=== PATIENT | female | born 1940 | race Caucasian/White ===

== ENCOUNTER 2024-05-01 14:11 | Inpatient (IN) | payer OTHER, SELFPAY ==
[2024-04-30] VITALS (11 sets, daily range): BP systolic 98–254; BP diastolic 52–209; BMI 21.7
[2024-04-30 13:44] LABS: % Basophils 1.4 % (0-2); % Eosinophils 1.3 % (0-6); % Immature Granulocytes 0.3 % (0-0.5); % Lymphocytes 25.8 % (20.5-51.1); % Monocytes 9.2 % (1.7-9.3); Absolute Basophils 0.1 10^3/uL (0-0.2); Absolute Eosinophils 0.1 10^3/uL (0-0.7); Absolute Monocytes 0.7 10^3/uL (0.1-0.6); Absolute Neutrophils 4.8 10^3/uL (1.4-6.5); Hematocrit 37.8 % (37.0-47.0); Hemoglobin 12.8 g/dL (12.0-16.0); Mean Corp Hgb Conc. 33.9 g/dL (33.0-37.0); Mean Corpuscular Hgb 31.5 pg (27.0-31.0); Mean Corpuscular Volume 93.1 fL (81.0-99.0); Nucleated Red Blood Cells % 0 %; Platelet Count 329 10^3/uL (130-400); Red Blood Cell Count 4.06 10^6/uL (4.20-5.40); Red Cell Dist. Width 13.9 % (11.5-14.5); White Blood Cell Count 7.8 10^3/uL (4.8-10.8)
[2024-04-30 13:56] LABS: ALT (SGPT) 23 U/L (0-35); AST (SGOT) 27 U/L (14-36); Albumin 4.8 g/dl (3.5-5.0); Alkaline Phosphatase 79 U/L (38-126); Blood Urea Nitrogen 26 mg/dl (7-17); Calcium 9.9 mg/dl (8.4-10.2); Carbon Dioxide 22 mmol/L (22-30); Chloride 105 mmol/L (98-107); Glucose 88 mg/dl (70-99); Potassium 4.1 mmol/L (3.5-5.1); Sodium 140 mmol/L (135-145); Total Bilirubin 0.7 mg/dl (0.2-1.3); Total Protein 7.5 g/dl (6.3-8.2); eGFR 55.55
[2024-04-30] MEDS: TRANDATE 10 MG IV (17:41)
[2024-04-30] MEDS: COZAAR 50 MG PO (17:42)
--- NOTE | 2024-04-30 17:48 | ED.GENMED ---
History of Present Illness
General
Chief Complaint: Change in Mental Status
Source: patient and family
Exam Limitations: altered mental status
Time Seen by Provider: 04/30/24 17:12
Nursing documentation reviewed up to this point in time: agreed with
History of Present Illness
History of Present Illness:
83-year-old female originally from [facility] lives in the with her son for 10 to 14 days she has had fatigue confusion and word finding difficulties around 7 days ago she stopped all her meds including her 2 antihypertensives, no headache, no nausea
or vomiting, severely hypertensive. No chest pains, she apparently fell at some point today,
Past History
Past History
ED Past Medical History: HTN
Social History
Tobacco: Non-smoker
Alcohol: Occasional
Drug: None
Personal:
Living: with family
Employment: Retired
Review of Systems
Review of Systems
All Other Systems: Not applicable
Constitutional: Reports fatigue; Denies fever
EENT: Reports no symptoms
Respiratory: Reports no symptoms
Cardiac: Reports no symptoms
ABD/GI: Reports no symptoms
Neurological: Reports other (Word finding difficulty speaking at Qatari occasionally)
Psychiatric: Reports no symptoms
Phy Exam
Physical Exam
Physical Exam:
Physical Exam
General: no apparent distress, not acutely ill
Neck: No jaundice no tongue bite
Heart: s1/s2 regular rate and rhythm, no murmur. equal radial pulses.
Lungs: no acute respiratory distress. clear bilaterally
Abdomen: Not tender
Neuro: alert and oriented speech slow a bit slurred
Skin: no rash
Psychiatric: Cooperative frustrated
Extremities: no edema.
Course
Orders/Labs/Results
Orders:
Orders
04/30/24 13:[address] [CT Head W/o Iv Contrast] Urgent
Comment:
Reason For Exam: dizziness and confusion
04/30/24 13:35
Complete Blood Count/With Diff Urgent
Comprehensive Metabolic Panel Urgent
04/30/24 17:23
Labetalol HCl [Trandate] 10 mg IV NOW STA
04/30/24 17:25
Losartan [Cozaar] 50 mg PO NOW STA
Abnormal Lab Results
04/30/24
13:35
RBC 4.06 L 10^6/uL
(4.20-5.40)
MCH 31.5 H pg
(27.0-31.0)
Absolute Monos (auto) 0.7 H 10^3/uL
(0.1-0.6)
BUN 26 H mg/dl
(7-17)
04/30/24 13:35
04/30/24 13:35
Vital Signs
Initial and Last Documented VS:
Initial Vital Signs
Temp Pulse Resp BP Pulse Ox
98.5 F 88 18 98/73 98
04/30/24 13:26 04/30/24 13:26 04/30/24 13:26 04/30/24 13:26 04/30/24 13:26
Last Documented Vital Signs
Temp Pulse Resp BP Pulse Ox
98.5 F 92 18 253/92 97
04/30/24 13:26 04/30/24 17:38 04/30/24 17:38 04/30/24 17:38 04/30/24 17:00
MDM/Problems Addressed
Differential Diagnosis Includes:
Malignancy hypertensive encephalopathy hypertensive urgency, electrolyte abnormality, neurologic condition
MDM/Problems Addressed:
Confusion, high blood pressure
Chronic conditions affecting care:
High blood pressure
Chronic conditions affecting care: HTN
Acute Exacerbation and/or Progression of Chronic Illness: HTN
*Radiology
Radiology exam reviewed: radiology read reviewed
*Pulse Oximetry
Patient hypoxic: no
*EKG
Interpreted by ED Provider?: Yes
Interpretation: abnormal
Comparison EKG: no comparison EKG present
Heart Rate: 78
Rate: normal
Rhythm: sinus
Ischemia: non-specific ST changes
*Loan Associate Interpretation
Rate: normal
Interpretation: normal
Heart Rate: 78
Rhythm: sinus
*Critical Care Note
Total Time (30-74mins, 75-104mins- exclusive of procedures): 31
Update Note
Update Note:
Update, high risk situation patient with severely elevated systolic blood pressure noncompliant with meds with mental status change subacute onset
Will start on labetalol, restarted losartan p.o. will require admission
ED Attending Note
-
Portions of this chart may have been created with voice recognition software.� Occasional wrong word or��sound alike� substitutions may have occurred due to the inherent limitations of voice recognition software.
Discharge Plan
Departure
Patient Disposition: Admit
Date of Disposition: 04/30/24
Time of Disposition: 17:51
Admit to: Telemetry
Presentation/result/management discussed w/ accepting MD/DO: Hospitalist
Patient with high blood pressure during this ER visit?: Yes
Condition: Fair
Covid-19: Not Applicable
Discharge Problem:
Encephalopathy, hypertensive
Referrals:
Michael Wilson MD [Family Provider] -
Interventions
Interventions:
*Risk Screen - Suicide Last Done: 04/30/24 13:26
*General Assessment Last Done: 04/30/24 13:26
*Neglect/Abuse Screening Last Done: 04/30/24 16:24
*ED COVID-19 Vaccine History Last Done: 04/30/24 13:26
ED- Neurological Assessment Last Done: 04/30/24 16:25
ED Swallowing Screen Last Done: 04/30/24 16:25
Discharge Date and Time
Print Language: SERBIAN
--- NOTE | 2024-04-30 18:10 | HPS.HSE ---
Family Physician
-
Family Physician: Michael Wilson
Chief Complaint
-
High blood pressure
History of Present Illness
Patient is 83-year-old female with past medical history of essential hypertension, cachexia, overactive bladder, hyperlipidemia came to ER for having high blood pressure at home. Patient's son at bedside and due to language barrier history is
limited. Apparently patient has been following with his primary care physician for many years and have started on metoprolol XL after which patient started feeling dizzy. Patient stopped taking all her blood pressure medication although did not
check blood pressure at home. No other symptoms suggestive of hypotension. Patient started to feeling unwell and continue to have high blood pressure, patient tried to contact primary care physician and unable to do so due to weekend, patient came
to ER for further evaluation.
Patient noted to having some speech changes although per son patient speech is normal. Patient denies of having any episode of chest pain/shortness of breath/palpitation/nausea.
Medical History
Past Medical History
Past Medical History: Reports Other
Additional Past Medical History:
Essential hypertension, hyperlipidemia, overactive bladder
Past Surgical History: Reports None
Social History
Tobacco: Non-smoker
Alcohol: Occasional
Drug: None
Family History
Family History: Not pertinent
Allergies / Home Medications
Allergies reflects when Allergies were last updated in [facility].
Home Medications with original date entered in [facility]
Losartan/hydrochlorothiazide 100/25 mg 1 tablet daily
Toprol-XL 50 mg daily
Oxybutynin 10 mg daily
Allergy/Medication List:
Allergies
Allergy/AdvReac Type Severity Reaction Status Date / Time
No Known Allergies Allergy Unverified 04/30/24 13:31
Review of Systems
-
A 12 point ROS was completed and negative except as noted: Yes
Physical Exam
Vital Signs
Vital Signs
Temp Pulse Resp BP Pulse Ox
98.5 F 92 16 253/92 97
04/30/24 13:26 04/30/24 17:38 04/30/24 18:00 04/30/24 17:38 04/30/24 17:00
Physical Exam
General: Well Developed, Well Nourished and No Apparent Distress
HEENT: NormoCephalic, Moist mucous membranes and Atraumatic
Respiratory: Clear
Cardiac: S1/S2 and Regular Rhythm; No Murmur or Rub
GI: Soft, Non Tender, Non Distended and Normal Bowel Sounds; No Organomegaly
Rectal: Deferred by Provider
Musculoskeletal: No Clubbing, No Cyanosis and No Edema
Skin: No Rash
Neuro: Nonfocal/grossly intact
Laboratory Results
-
04/30/24 13:35
04/30/24 13:35
Laboratory Results
Total Bilirubin 0.7 mg/dl (0.2-1.3) 04/30/24 13:35
AST 27 U/L (14-36) 04/30/24 13:35
ALT 23 U/L (0-35) 04/30/24 13:35
Alkaline Phosphatase 79 U/L (38-126) 04/30/24 13:35
Impression/Plan
-
1. Hypertensive urgency
Medication noncompliance
Essential hypertension
-Patient on combination of hydrochlorothiazide/losartan with added Toprol-XL recently by family physician
-As patient was feeling dizzy/off patient stopped taking all meds 7 days back
-In ER patient blood pressure in systolic 240s
-CT head without any acute abnormality
-Denies of chest pain/palpitation/nausea
-Patient got IV labetalol/losartan 50 mg and systolic blood pressure in 150s
-Resume back patient on losartan 100 mg daily from tomorrow morning and Toprol-XL dose lowered to 25 mg twice daily
-As needed hydralazine ordered for systolic blood pressure greater than 160
2. Hyperlipidemia
-Resume rosuvastatin 10 mg qpm
3. Overactive bladder
-Resume oxybutynin 10 mg bid
DVT prophylaxis -SCD
Full code
Observation admit
Total time spent : 77 mins
I personally saw and examined the patient.
I have reviewed all diagnostic interpretations and treatment plans as written.
Time includes patient management by me, time spent at the patients bedside, time to review lab and imaging results, discussing patient care, documentation in the medical record, and time spent with the family or caregiver and discussing care plan
with RN/Consultants.
--- NOTE | 2024-04-30 20:30 | PTCARENOTE ---
Pt arrived to floor via stretcher from the ED. Pt able to ambulate with assist x2 to bed, gait unsteady. PT AAOx2- Pt Urdu speaking, Pt able to speak broken Engish and make needs known. Son at bedside to assist in translating. Pt reports recent
fall, bed alarm in place to ensure pt safety. HR in the 90's in NSR on the monitor. POX 96% on RA. Lungs clear, + bowel. Palpable peripheral pulses present. Right wrist int capped at this time. Knee high seq applied per MD order. Pt denies any
complaints at this time. Call leyva in reach. Will continue to monitor.
--- NOTE | 2024-04-30 21:30 | PTCARENOTE ---
PB 191/55. PRN Medication administered as ordered. no other changes in assessment noted at this time. Will continue to monitor.
[2024-04-30] MEDS: TYLENOL 650 MG PO (21:36)
[2024-04-30] MEDS: TOPROL XL 25 MG PO (21:36)
[2024-04-30] MEDS: APRESOLINE 10 MG IV (21:37)
[2024-04-30] MEDS: DITROPAN 5 MG PO (22:04)
[2024-04-30] MEDS: TYLENOL PO (23:43)
[2024-05-01] VITALS (8 sets, daily range): BP systolic 124–208; BP diastolic 58–81; PULSE 79–97; O2SAT 97
--- NOTE | 2024-05-01 01:00 | PTCARENOTE ---
Pt awake complaining of some leg cramping and restlessness. Pt assisted to bathroom. Liam RODRIGUEZ notified, orders obtained. Will continue to monitor.
[2024-05-01] MEDS: TYLENOL PO ×3 (04:33→23:55)
[2024-05-01 06:44] LABS: Hematocrit 34.3 % (37.0-47.0); Hemoglobin 11.7 g/dL (12.0-16.0); Mean Corp Hgb Conc. 34.1 g/dL (33.0-37.0); Mean Corpuscular Hgb 31.1 pg (27.0-31.0); Mean Corpuscular Volume 91.2 fL (81.0-99.0); Platelet Count 327 10^3/uL (130-400); Red Blood Cell Count 3.76 10^6/uL (4.20-5.40); Red Cell Dist. Width 13.8 % (11.5-14.5); White Blood Cell Count 8.5 10^3/uL (4.8-10.8)
[2024-05-01 07:03] LABS: Blood Urea Nitrogen 22 mg/dl (7-17); Calcium 9.4 mg/dl (8.4-10.2); Carbon Dioxide 23 mmol/L (22-30); Chloride 104 mmol/L (98-107); Estimated Creatinine Clearance 30 ml/min; Glucose 89 mg/dl (70-99); Magnesium 1.8 mg/dl (1.6-2.3); Sodium 136 mmol/L (135-145); eGFR 55.55
[2024-05-01] MEDS: DITROPAN 5 MG PO ×2 (08:22→19:56)
[2024-05-01] MEDS: TOPROL XL 25 MG PO (08:22)
[2024-05-01] MEDS: COZAAR 100 MG PO (08:22)
[2024-05-01] MEDS: TYLENOL 650 MG PO ×3 (08:23→19:56)
[2024-05-01 10:50] LABS: Free T4 1.52 ng/dl (0.78-2.19)
[2024-05-01 11:03] LABS: TSH 3.23 uIU/ml (0.47-4.68)
[2024-05-01 11:40] LABS: Folate 16.9 ng/ml (2.76-20); Vitamin B12 346 pg/ml (239-931)
--- NOTE | 2024-05-01 12:04 | W.PN.HOSP.TC ---
Addendum entered and electronically signed by Kenroy Alcantar MD 05/01/24 14:15:
MRI brain showing left lenticular nucleus acute to subacute CVA -may explain any new changes in speech
Neurology consult for further evaluation
Lipid profile/hemoglobin A1c/carotid Doppler ordered
Patient already on statin. Starting aspirin 81 mg daily.
Patient blood pressure also remains uncontrolled. Dose of Toprol increased to 50 mg twice daily
Level of care changed to inpatient
Original Note:
Today's Communication/Plan
-
see note
Assessment / Plan
Assessment / Plan
1. Hypertensive urgency
Medication noncompliance
Essential hypertension
-Patient on combination of hydrochlorothiazide/losartan with added Toprol-XL recently by family physician
-As patient was feeling dizzy/off? patient stopped taking all meds 7 days back
-In ER patient blood pressure in systolic 240s
-CT head without any acute abnormality
-Denies of chest pain/palpitation/nausea
-Patient got IV labetalol/losartan 50 mg and systolic blood pressure in 150s
-Resume back patient on losartan 100 mg daily from tomorrow morning and Toprol-XL dose lowered to 25 mg twice daily
-Blood pressure remains controlled with current regimen. Unsure if patient have component of labile hypertension and caused initial symptoms at home week before. Cautious escalation of antihypertensive regimen is warranted if needed
2. Hypertensive encephalopathy versus cognitive impairment
-Patient significantly disoriented and quite narrow attention span
-Speech is significantly disorganized than yesterday, unsure if language barrier is playing role
-Unable to rule out if patient have any previous CVA playing role as well
-CT head was not showing any acute abnormality. MRI brain without contrast ordered to rule out any subacute small stroke.
-Check B12/folate/TSH level
-Speech therapy consulted for BCAT/cognitive scoring.
3. Hyperlipidemia
-Resume rosuvastatin 10 mg qpm
4. Overactive bladder
-Resume oxybutynin 10 mg bid
DVT prophylaxis -SCD
Full code
Total time spent : 52 mins
Anticipated Discharge: Within 24 hours
Subjective/Interval History
-
Date of Service: May 01, 2024
Patient significantly disoriented and quite narrow attention span
Speech is significantly disorganized than yesterday, unsure if language barrier is playing role
Objective Data
-
Labs:
Laboratory Results
05/01/24
06:11
WBC 8.5
Hgb 11.7 L
Hct 34.3 L
Plt Count 327
Sodium 136
Potassium 4.0
Chloride 104
Carbon Dioxide 23
BUN 22 H
Creatinine 1.0
Glucose 89
Calcium 9.4
Vital Signs:
Vital Signs
Temp Pulse Resp BP Pulse Ox
97.9 F 78 18 156/81 96
05/01/24 07:29 05/01/24 07:29 05/01/24 07:29 05/01/24 07:29 05/01/24 07:29
Review of Systems
-
Respiratory: Reports No Symptoms
Cardiac: Reports No Symptoms
Abdomen/GI: Reports No Symptoms
Physical Exam
-
General: Negative Appears in Distress
HEENT: Negative Oxygen
Cardiac: Regular Rhythm and S1/S2; Negative Murmur
Neuro: Awake and Alert; Negative Oriented
[2024-05-01] MEDS: APRESOLINE 10 MG IV ×3 (12:50→23:57)
--- NOTE | 2024-05-01 15:16 | CON.NEURO ---
Consultation
Order
Date of Consultation: 05/01/24
Requesting Provider: Kenroy Alcantar MD
Reason for Consult: stroke
Neurology Consultation Note.
HPI: This is an 83-year-old woman who presented to [facility] on 04/30/2024 with confusion. According to EMR patient was noted to have 1 week of confusion and recent expressive aphasia leading to the hospitalization.
ER VS: 98/73-243/93, 88, afebrile
EKG: Pending
PDMP: None
Labs: Normal glucose�creatinine�1.0, LDL�78, vitamin B12 346, normal TSH
Brain MRI�Punctate focus of restricted diffusion in the lateral aspect of the left lentiform nucleus, compatible with a small focus of acute to subacute infarction.
Moderate diffuse atrophy. Severe leukomalacia
PMH: HTN, DLP, overactive bladder, osteoporosis, BMI 21
SH:originally from [facility]; , lives with a son; nonsmoker
FH: Unknown
All:NKDA
ROS: Negative for headache, change in vision, strength. Positive for aphasia
General: Well developed. In no acute distress.
Cardio: Regular rate and rhythm without murmur. Extremities are without cyanosis or edema.
Neuro:
Mental Status: Alert, oriented to person, self, place. Moderate expressive less than receptive aphasia. Follows requests. No hemineglect.
Cranial Nerves: Pupils are equally round and reactive to light. EOMs full. BTT BL. No ptosis. No nystagmus. V1-V3 intact to light touch and pinprick bilaterally, symmetric. Mild R facial weakness. Normal hearing AU. The palate elevated well.
SCMs and traps 5/5. Tongue midline. No dysarthria.
Motor: Normal bulk and tone. No pronator or arm drift. Strength 5/5 throughout. No clonus.
Reflexes: Negative grasp bilaterally.
Sensory: Limited due to aphasia
Coordination: No dysmetria or tremor.
Gait: deferred
Assessment and Plan:
I. Acute left llentiform nucleus stroke. Likely etiology�small vessel disease.
II. Hypertensive emergency
III. Vascular encephalopathy.
-Continue Telemetry monitoring.
-Aspiration precautions.
-Cautious lowering of BP by approximately 15 % during the first 24 hours is SBP >220 mmHg or diastolic blood pressure >120 mmHg
-Restart antihypertensive medications during if BP>140/90 mmHg who are neurologically stable in 24 to 48 hours after stroke onset
-TTE with bubble studies, if unremarkable-please proceed with LISA.
-ASA 81 mg QD indefinitely.
-Plavix 75 mg QD for 21 days.
-Lipitor 40 mg QHS.
-HbA1C
-Carotid Doppler ultrasound
-Speech therapy.
-I have left a message for patient's son to return my call to obtain patient's cognitive baseline.
-DVT prophylaxis.
I personally reviewed all radiology and labs along with past medical records pertinent to current medical problems. Total time spent in patient care is 60 minutes.
Thank you for allowing us to participate in the care of this patient. We will continue to follow. Please do not hesitate to contact us with any questions or concerns.
Subjective/Objective
Subjective Data
Date of Service: May 01, 2024
Objective Data
Vital Signs
Temp Pulse Resp BP Pulse Ox
36.6 C 68 18 204/70 96
05/01/24 12:38 05/01/24 12:38 05/01/24 12:38 05/01/24 12:50 05/01/24 12:38
Lab Results
05/01/24 06:11
05/01/24 06:11
Sodium 136 mmol/L (135-145) 05/01/24 06:11
Potassium 4.0 mmol/L (3.5-5.1) 05/01/24 06:11
BUN 22 mg/dl (7-17) H 05/01/24 06:11
Glucose 89 mg/dl (70-99) 05/01/24 06:11
Calcium 9.4 mg/dl (8.4-10.2) 05/01/24 06:11
LDL Cholesterol, Calc Cancelled 05/01/24 14:12
Vitamin B12 346 pg/ml (837-931) 05/01/24 06:11
Patient Allergies
No Known Allergies Allergy (Unverified 04/30/24 13:31)
Medications
-
Active Medications
Generic Name Dose Route Start Last Admin
Trade Name Freq PRN Reason Stop Dose Admin
Acetaminophen 650 mg 04/30/24 21:00 05/01/24 12:50
Acetaminophen 325 Mg Tablet PO 05/28/24 20:59 650 mg
Q4HWA ALFONSO Administration
Aspirin 81 mg 05/01/24 15:00
Aspirin 81 Mg Chewable Tablet PO 05/29/24 14:59
DAILY ALFONSO
Bisacodyl 10 mg 04/30/24 20:12
Bisacodyl 10 Mg Rectal Suppository RECTAL 05/28/24 20:11
[id number] PRN
constipation
Hydralazine HCl 10 mg 04/30/24 20:12 05/01/24 12:50
Hydralazine 20 Mg/Ml Vial IV 05/28/24 20:11 10 mg
Q4HPRN PRN Administration
FOR SBP > 160 or DBP > 110
Losartan Potassium 100 mg 05/01/24 08:00 05/01/24 08:22
Losartan 100 Mg Tablet PO 05/29/24 07:59 100 mg
DAILY ALFONSO Administration
Metoprolol Succinate 50 mg 05/01/24 20:00
Metoprolol 50 Mg Extended Release Tablet PO 05/29/24 19:59
BID ALFONSO
Ondansetron HCl 4 mg 04/30/24 20:12
Ondansetron 4 Mg/2 Ml Vial IV 05/28/24 20:11
Q6HPRN PRN
nausea and vomiting
Oxybutynin Chloride 5 mg 04/30/24 20:12 05/01/24 08:22
Oxybutynin 5 Mg Tablet PO 05/28/24 20:11 5 mg
BID ALFONSO Administration
Polyethylene Glycol 17 grams 04/30/24 20:12
Polyethylene Glycol Powder 17 Grams Packet PO 05/28/24 20:11
DAILYPRN PRN
constipation
Rosuvastatin Calcium 10 mg 05/01/24 18:00
Rosuvastatin (Crestor) 10 Mg Tablet PO 05/29/24 17:59
QPM ALFONSO
Senna/Docusate Sodium 1 tablet 04/30/24 20:12
Docusate W/Senna (Zulma-Colace) Tablet PO 05/28/24 20:11
BIDPRN PRN
constipation
Sodium Chloride 0 flush 04/30/24 22:00
Sodium Chloride 0.9% (Flush) Syringe IV 05/28/24 21:59
PER PROTOCOL ALFONSO
Vital Signs and Labs
-
Vital Signs and Labs:
Vital Signs
Temp Pulse Resp BP Pulse Ox
36.7 C 75 18 178/61 97
05/01/24 16:29 05/01/24 16:29 05/01/24 16:29 05/01/24 16:29 05/01/24 16:29
Lab Results
05/01/24 06:11
05/01/24 06:11
Sodium 136 mmol/L (135-145) 05/01/24 06:11
Potassium 4.0 mmol/L (3.5-5.1) 05/01/24 06:11
BUN 22 mg/dl (7-17) H 05/01/24 06:11
Glucose 89 mg/dl (70-99) 05/01/24 06:11
Calcium 9.4 mg/dl (8.4-10.2) 05/01/24 06:11
LDL Cholesterol, Calc Cancelled 05/01/24 14:12
Vitamin B12 346 pg/ml (964-931) 05/01/24 06:11
Medications
-
Medications:
Generic Name Dose Route Start Last Admin
Trade Name Freq PRN Reason Stop Dose Admin
Acetaminophen 650 mg 04/30/24 21:00 05/01/24 16:00
Acetaminophen 325 Mg Tablet PO 05/28/24 20:59 Not Given
Q4HWA ALFONSO
Aspirin 81 mg 05/01/24 15:00 05/01/24 17:03
Aspirin 81 Mg Chewable Tablet PO 05/29/24 14:59 81 mg
DAILY ALFONSO Administration
Bisacodyl 10 mg 04/30/24 20:12
Bisacodyl 10 Mg Rectal Suppository RECTAL 05/28/24 20:11
[id number] PRN
constipation
Clopidogrel Bisulfate 75 mg 05/02/24 08:00
Clopidogrel 75 Mg Tablet PO 05/22/24 08:01
DAILY ALFONSO
Hydralazine HCl 10 mg 04/30/24 20:12 05/01/24 12:50
Hydralazine 20 Mg/Ml Vial IV 05/28/24 20:11 10 mg
Q4HPRN PRN Administration
FOR SBP > 160 or DBP > 110
Losartan Potassium 100 mg 05/01/24 08:00 05/01/24 08:22
Losartan 100 Mg Tablet PO 05/29/24 07:59 100 mg
DAILY ALFONSO Administration
Metoprolol Succinate 50 mg 05/01/24 20:00
Metoprolol 50 Mg Extended Release Tablet PO 05/29/24 19:59
BID ALFONSO
Ondansetron HCl 4 mg 04/30/24 20:12
Ondansetron 4 Mg/2 Ml Vial IV 05/28/24 20:11
Q6HPRN PRN
nausea and vomiting
Oxybutynin Chloride 5 mg 04/30/24 20:12 05/01/24 08:22
Oxybutynin 5 Mg Tablet PO 05/28/24 20:11 5 mg
BID ALFONSO Administration
Polyethylene Glycol 17 grams 04/30/24 20:12
Polyethylene Glycol Powder 17 Grams Packet PO 05/28/24 20:11
DAILYPRN PRN
constipation
Rosuvastatin Calcium 10 mg 05/01/24 18:00 05/01/24 17:02
Rosuvastatin (Crestor) 10 Mg Tablet PO 05/29/24 17:59 10 mg
QPM ALFONSO Administration
Senna/Docusate Sodium 1 tablet 04/30/24 20:12
Docusate W/Senna (Zulma-Colace) Tablet PO 05/28/24 20:11
BIDPRN PRN
constipation
Sodium Chloride 0 flush 04/30/24 22:00
Sodium Chloride 0.9% (Flush) Syringe IV 05/28/24 21:59
PER PROTOCOL ALFONSO
[2024-05-01 15:20] LABS: HDL Cholesterol 81 mg/dl; LDL Cholesterol, Calculated 78 mg/dl; Total Cholesterol 172 mg/dl (50-199); Triglyceride 66 mg/dl (10-149); Very Low Density Lipoprotein 13 mg/dl (0-30)
--- NOTE | 2024-05-01 15:50 | CM ---
Korean/Ghanaian speaking patient with Dx acute to subacute CVA. Room air. PT/OT Evals pending. ST Eval pending.
Met with patient who exhibited expressive aphasia and was unable to clearly converse.
Spoke with son Liborio;
the patient resides with her son Johan in a 2 story house with 4-5 steps at entrance, with first floor bedroom/bath, and laundry in basement.
She was A/O at home per son with word finding difficulty since , that has worsened in the past week.
The patient has been independent in ADLs and ambulation, holding onto elias at home as needed.
She was active and driving.
DME - BP machine
No prior VN or SNF
PCP - Michael Wilson
Pharmacy - [facility]
Patient may benefit from Physiatry Eval ---> message to Dr Alcantar.
Plan follow up after seen by PT/OT.
[2024-05-01] MEDS: CRESTOR 10 MG PO (17:02)
[2024-05-01] MEDS: LOW STRENGTH ASPIRIN 81 MG PO (17:03)
[2024-05-01 17:46] LABS: Urine Albumin Trace (Neg - Trace); Urine Bilirubin Negative (Negative); Urine Character Clear (Clear); Urine Color Yellow; Urine Glucose Negative (Negative); Urine Ketone Negative (Negative); Urine Leukocyte 1+ (Negative); Urine Nitrite Negative (Negative); Urine Occult Blood Negative (Negative); Urine Urobilinogen Negative (Neg - 1+); Urine pH 6.5 (5.0-9.0)
[2024-05-01 18:30] LABS: Urine Bacteria Few (Negative); Urine Red Blood Cell 0-2 /HPF (0-2); Urine Squamous Cell 0-2 /LPF (Few)
[2024-05-01] MEDS: TOPROL XL 50 MG PO (19:56)
[2024-05-02] VITALS (7 sets, daily range): BP systolic 122–204; BP diastolic 48–81; PULSE 61; O2SAT 98
[2024-05-02] MEDS: TYLENOL PO ×3 (04:18→16:52)
[2024-05-02] MEDS: APRESOLINE 10 MG IV ×2 (04:26→13:02)
[2024-05-02 07:31] LABS: Mean Corp Hgb Conc. 34.3 g/dL (33.0-37.0); Mean Corpuscular Hgb 31.5 pg (27.0-31.0); Mean Corpuscular Volume 91.9 fL (81.0-99.0); Platelet Count 334 10^3/uL (130-400); Red Blood Cell Count 3.81 10^6/uL (4.20-5.40); Red Cell Dist. Width 14.2 % (11.5-14.5); White Blood Cell Count 8.1 10^3/uL (4.8-10.8)
--- NOTE | 2024-05-02 07:32 | W.PN.HOSP.TC ---
Addendum entered and electronically signed by Ozzie Danielson MD 05/02/24 23:53:
Attending Addendum-
I saw and evaluated the patient. I reviewed the resident�s note and agree with findings and plan as documented in the resident�s note. Sub: Patient with nonfluent tangential speech. attempting to describe events leading to hospitalization. complains
of left gluteal region pain from fall. doenst think speech is afffected. Ran NAVARRO / vision changes Full 12 point ROS reviewed and negative except as documented Exam: Vitals reviewed in chart GEN-NAd heart RRR lungs clear abd soft Le no edema Neuro
non fluent speech sensation intact follows commands
# Hypertensive Emergency
-Medication noncompliance
-Essential hypertension
-Patient on combination of hydrochlorothiazide/losartan with added Toprol-XL recently by family physician
-As patient was feeling dizzy/off? patient stopped taking all meds 7 days back
-In ER patient blood pressure in systolic 240s
-CT head without any acute abnormality
-Resume losartan 100 mg daily and Toprol-XL 50 mg twice daily
-monitor closely
-attempt normotension over next 24 hours
# Acute CVA
-GDMT
-MRI-Punctate focus of restricted diffusion in the lateral aspect of the left lentiform nucleus, compatible with a small focus of acute to subacute infarction. Moderate diffuse atrophy. Severe leukomalacia
-Echo 05/02- Normal left ventricular size and systolic function. No regional wall motion
abnormalities are seen. LV ejection fraction is 65-70% mild AR and MR
-sxs and onset more acute in presentation
-Continue Telemetry monitoring.
-Aspiration precautions.
-ASA 81 mg QD indefinitely.
-Plavix 75 mg QD for 21 days.
-Lipitor 40 mg QHS.
-HbA1C- 5.3
-Carotid Doppler ultrasound
-Speech therapy.
-c/s PMnR
-DVT prophylaxis.
#Hyperlipidemia
- change to lipitor 40mg
- LDL 78
# Overactive bladder
-cont oxybutynin 10 mg bid
DVT prophylaxis -change to lovenox when able
Full code
Time spent coordinating care, review of plan of care with resident, personally reviewed records in EMR, med rec, consults, notes, labs, radiology, d/w nursing, neuro � 57 mins
Original Note:
Today's Communication/Plan
-
;/
Assessment / Plan
Assessment / Plan
Assessment/plan
#Hypertensive emergency
-Blood pressure in the ER with systolic in the 240s,
-Evidence of end-organ damage on MRI of brain
-Patient on current regimen losartan, metoprolol
-IV hydralazine 10 mg Q4prn
-Keep goal blood pressure less than 160/100
#Acute ischemic stroke likely from hypertensive crisis
-CT scan head without any acute abnormality
-MRI 05/01/2024- Punctate focus of restricted diffusion in the lateral aspect of the left lentiform nucleus, compatible with a small focus of acute to subacute infarction.Moderate diffuse atrophy. Severe leukomalacia
-Neurology consulted
-Ultrasound cerebrovascular pending
-Aspirin 81 mg
-Patient started on Plavix 75 mg p.o. daily by neurology
-B12, folate, TSH, lipid profile all within appropriate level
-Echocardiogram
-ST/PT/OT eval
-OT recommending acute rehab once medically stable, will consult physiatry.
#Hyperlipidemia
-Atorvastatin 40mg
#Overactive bladder
-Oxybutynin 10 mg
DVT prophylaxis-SCDs
CODE STATUS; full code
Anticipated Discharge: > 48 hours
Subjective/Interval History
-
Patient seen at bedside. Oriented to place and person. Attention span appropriate, she is having her breakfast she denies any acute complaints at this time.
Objective Data
-
Labs:
Laboratory Results
05/02/24
07:09
WBC 8.1
Hgb 12.0
Hct 35.0 L
Plt Count 334
Sodium Pending
Potassium Pending
Chloride Pending
Carbon Dioxide Pending
BUN Pending
Creatinine Pending
Glucose Pending
Calcium Pending
Vital Signs:
Vital Signs
Temp Pulse Resp BP Pulse Ox
98.8 F 71 18 187/64 97
05/02/24 03:00 05/02/24 04:26 05/02/24 03:00 05/02/24 04:26 05/02/24 03:00
I&O
05/01/24 05/02/24 05/03/24
06:59 06:59 06:59
Intake Total 480 / 480
Output Total 200 / 200
Balance 280 / 280
Review of Systems
-
All other systems: Reviewed and negative (Except as documented)
Physical Exam
-
General: Well Developed, Well Nourished and No Apparent Distress
HEENT: Normocephalic and Atraumatic
Respiratory: Clear to Auscultation
Cardiac: Regular Rhythm and S1/S2
GI: Soft, Nontender, Nondistended and Normal Bowel Sounds
Musculoskeletal: No Edema and Other (Strengths 5/5 bilateral upper extremity and lower extremity)
Neuro: Awake and Alert
Psych: Calm
[2024-05-02 08:13] LABS: Blood Urea Nitrogen 26 mg/dl (7-17); Carbon Dioxide 22 mmol/L (22-30); Chloride 107 mmol/L (98-107); Estimated Creatinine Clearance 25 ml/min; Glucose 97 mg/dl (70-99); Potassium 4.2 mmol/L (3.5-5.1); Sodium 138 mmol/L (135-145); eGFR 44.64
[2024-05-02] MEDS: LOW STRENGTH ASPIRIN 81 MG PO (08:48)
[2024-05-02] MEDS: TYLENOL 650 MG PO ×2 (08:48→21:12)
[2024-05-02] MEDS: COZAAR 100 MG PO (08:48)
[2024-05-02] MEDS: PLAVIX 75 MG PO (08:48)
[2024-05-02] MEDS: TOPROL XL 50 MG PO ×2 (08:48→21:12)
[2024-05-02] MEDS: DITROPAN 5 MG PO ×2 (08:48→21:12)
[2024-05-02 08:49] LABS: Glycohemoglobin (HgbA1c) 5.3 % (4.0-5.6)
--- NOTE | 2024-05-02 10:43 | W.PN.NEURO.1 ---
Today's Communication / Plan
-
.
Subjective/Objective
Subjective Data
Date of Service: May 02, 2024
Neurology Consultation Note.
24-hour events. Blood pressure has improved. Afebrile. Ms. Reece reports no complaints. Continues to have expressive difficulties.
Brain MRI�Punctate focus of restricted diffusion in the lateral aspect of the left lentiform nucleus, compatible with a small focus of acute to subacute infarction. Moderate diffuse atrophy.
PMH: HTN, DLP, overactive bladder, osteoporosis, BMI 21
SH:originally from [place]; , lives with a son; nonsmoker
FH: Unknown
All:NKDA
ROS: Negative for headache, change in vision, strength. Positive for aphasia
General: Well developed. In no acute distress.
Cardio: Regular rate and rhythm without murmur. Extremities are without cyanosis or edema.
Neuro:
Mental Status: Alert, oriented to person, self, place. Moderate expressive less than receptive aphasia. Follows requests. No hemineglect.
Cranial Nerves: Pupils are equally round and reactive to light. EOMs full. BTT BL. No ptosis. No nystagmus. V1-V3 intact to light touch and pinprick bilaterally, symmetric. Mild R facial weakness. Normal hearing AU. The palate elevated well.
SCMs and traps 5/5. Tongue midline. No dysarthria.
Motor: Normal bulk and tone. No pronator or arm drift. Strength 5/5 throughout. No clonus.
Reflexes: Negative grasp bilaterally.
Sensory: Limited due to aphasia
Coordination: No dysmetria or tremor.
Gait: deferred
Assessment and Plan:
I. Acute left lentiform nucleus stroke with nonfluent aphasia. Likely etiology�small vessel disease.
II. Hypertensive emergency
III. Cerebral microvascular disease
-Continue Telemetry monitoring.
-Aspiration precautions.
-TTE with bubble studies
-ASA 81 mg QD indefinitely.
-Plavix 75 mg QD for 21 days.
-Lipitor 40 mg QHS.
-HbA1C
-Carotid Doppler ultrasound
-Speech therapy.
-DVT prophylaxis.
I personally reviewed all radiology and labs along with past medical records pertinent to current medical problems. Total time spent in patient care is 35 minutes.
Thank you for allowing us to participate in the care of this patient. We will continue to follow. Please do not hesitate to contact us with any questions or concerns.
Objective Data
Vital Signs
Temp Pulse Resp BP Pulse Ox
36.7 C 70 17 157/48 96
05/02/24 07:38 05/02/24 07:38 05/02/24 07:38 05/02/24 07:38 05/02/24 07:38
Lab Results
05/02/24 07:09
05/02/24 07:09
Sodium 138 mmol/L (135-145) 05/02/24 07:09
Potassium 4.2 mmol/L (3.5-5.1) 05/02/24 07:09
BUN 26 mg/dl (7-17) H 05/02/24 07:09
Glucose 97 mg/dl (70-99) 05/02/24 07:09
Calcium 10.0 mg/dl (8.4-10.2) 05/02/24 07:09
LDL Cholesterol, Calc Cancelled 05/01/24 14:12
Vitamin B12 346 pg/ml (239-931) 05/01/24 06:11
Patient Allergies
No Known Allergies Allergy (Unverified 04/30/24 13:31)
Vital Signs and Labs
-
Vital Signs and Labs:
Vital Signs
Temp Pulse Resp BP Pulse Ox
36.7 C 70 17 157/48 96
05/02/24 07:38 05/02/24 07:38 05/02/24 07:38 05/02/24 07:38 05/02/24 07:38
Lab Results
05/02/24 07:09
05/02/24 07:09
Sodium 138 mmol/L (135-145) 05/02/24 07:09
Potassium 4.2 mmol/L (3.5-5.1) 05/02/24 07:09
BUN 26 mg/dl (7-17) H 05/02/24 07:09
Glucose 97 mg/dl (70-99) 05/02/24 07:09
Calcium 10.0 mg/dl (8.4-10.2) 05/02/24 07:09
LDL Cholesterol, Calc Cancelled 05/01/24 14:12
Vitamin B12 346 pg/ml (239-931) 05/01/24 06:11
Medications
-
Medications:
Generic Name Dose Route Start Last Admin
Trade Name Freq PRN Reason Stop Dose Admin
Acetaminophen 650 mg 04/30/24 21:00 05/02/24 08:48
Acetaminophen 325 Mg Tablet PO 05/28/24 20:59 650 mg
Q4HWA ALFONSO Administration
Aspirin 81 mg 05/01/24 15:00 05/02/24 08:48
Aspirin 81 Mg Chewable Tablet PO 05/29/24 14:59 81 mg
DAILY ALFONSO Administration
Bisacodyl 10 mg 04/30/24 20:12
Bisacodyl 10 Mg Rectal Suppository RECTAL 05/28/24 20:11
[id number] PRN
constipation
Clopidogrel Bisulfate 75 mg 05/02/24 08:00 05/02/24 08:48
Clopidogrel 75 Mg Tablet PO 05/22/24 08:01 75 mg
DAILY ALFONSO Administration
Hydralazine HCl 10 mg 04/30/24 20:12 05/02/24 04:26
Hydralazine 20 Mg/Ml Vial IV 05/28/24 20:11 10 mg
Q4HPRN PRN Administration
FOR SBP > 160 or DBP > 110
Losartan Potassium 100 mg 05/01/24 08:00 05/02/24 08:48
Losartan 100 Mg Tablet PO 05/29/24 07:59 100 mg
DAILY ALFONSO Administration
Metoprolol Succinate 50 mg 05/01/24 20:00 05/02/24 08:48
Metoprolol 50 Mg Extended Release Tablet PO 05/29/24 19:59 50 mg
BID ALFONSO Administration
Ondansetron HCl 4 mg 04/30/24 20:12
Ondansetron 4 Mg/2 Ml Vial IV 05/28/24 20:11
Q6HPRN PRN
nausea and vomiting
Oxybutynin Chloride 5 mg 04/30/24 20:12 05/02/24 08:48
Oxybutynin 5 Mg Tablet PO 05/28/24 20:11 5 mg
BID ALFONSO Administration
Polyethylene Glycol 17 grams 04/30/24 20:12
Polyethylene Glycol Powder 17 Grams Packet PO 05/28/24 20:11
DAILYPRN PRN
constipation
Rosuvastatin Calcium 10 mg 05/01/24 18:00 05/01/24 17:02
Rosuvastatin (Crestor) 10 Mg Tablet PO 05/29/24 17:59 10 mg
QPM ALFONSO Administration
Senna/Docusate Sodium 1 tablet 04/30/24 20:12
Docusate W/Senna (Zulma-Colace) Tablet PO 05/28/24 20:11
BIDPRN PRN
constipation
Sodium Chloride 0 flush 04/30/24 22:00
Sodium Chloride 0.9% (Flush) Syringe IV 05/28/24 21:59
PER PROTOCOL ALFONSO
--- NOTE | 2024-05-02 13:05 | W.PN.UPDATE ---
Update Note
Progress Note Update
Spoke to patient's son who confirmed that Ms. Reece has no language or cognitive dysfunction at baseline.
--- NOTE | 2024-05-02 14:19 | PTOTSP ---
Speech Therapy Evaluation:
VISUAL MANAGER service consulted for BCAT/cognitive scoring. Per chart review and RN report, pt also presents with expressive aphasia, therefore formal cognitive assessment deferred on this date as score would likely not represent true cognitive status given
language deficits.
To further assess expressive and receptive language, pt participated in the MAST. Pt earned a receptive index score of 46/50 and an expressive index score of 36/50, totaling an overall score of 82/100. Pt demonstrated expressive language deficits in
naming, automatic speech, and writing (although question if related to language barrier). Pt scored appropriately on verbal fluency subtest, however noted word finding deficits, reduced elaboration, and occasional telegraphic speech in conversation.
Regarding receptive language, pt demonstrated deficits in reading instructions, however also question if related to language barrier. Pt would benefit from ongoing tx at acute care level to target aforementioned expressive language deficits.
--- NOTE | 2024-05-02 15:13 | CM ---
CM reviewed chart and spoke with son/Johan to review dc planning
Acute recs by therapy
Son is in agreement with referral to [place]
Role of [employer] and PMR explained
PMR consult requested and pending
Referral to [place] via [facility]
Pt typically resides with son/Johan
Very active and indep at [employer]- walks 3 miles daily
He has capability to care for her at home if needed
Discharge Disposition- [place] referral pending
--- NOTE | 2024-05-02 15:55 | PTCARENOTE ---
Notified MD Cheng about pt's SBP being 180, too early to give prn hydralazine again.
[2024-05-02] MEDS: LIDOCAINE 4% PATCH TOPICAL (16:52)
[2024-05-02] MEDS: LIPITOR 40 MG PO (16:59)
--- NOTE | 2024-05-02 17:00 | CON.MD ---
Documented by User: Anette Martinez PA-C 05/02/24 18:05
Consultation - Medical
-
Referring Provider:�Ozzie Danielson
Chief Complaint:CVA�
�
History of Present Illness:�Patient is 83-year-old female with PMH of (essential hypertension, cachexia, overactive bladder, hyperlipidemia) who came to ER on 04/30/2024 with confusion and high blood pressure from home. Due to language barrier
history is limited. Story provided by her son. Patient was on combination of hydrochlorothiazide/losartan with added Toprol XL recently by family physician. As patient was feeling dizzy, she stopped taking all her meds 1 week prior. She was not
feeling well and so came to the ED for evaluation. She presented to the ED with a systolic pressure in the 240s. She was treated with IV labetalol/losartan with improvement in systolic blood pressure. CT scan of the head found without any acute
abnormality. She was noted to have some confusion and recent expressive aphasia.
MRI of the brain showed Punctate focus of restricted diffusion in the lateral aspect of the left lentiform nucleus, compatible with a small focus of acute to subacute infarction.Moderate diffuse atrophy. Severe leukomalacia. Carotid ultrasound and
LISA with bubble studies to be done.
Carotid ultrasound�05/02/2024�Right carotid: Small amount of mixed calcified and noncalcified plaque within the bulb and proximal ICA. Any stenosis is less than 50% based upon velocity criteria. Left carotid: Small amount of calcified plaque within
the carotid bulb and proximal ICA. Any stenosis is less than 50% based upon velocity criteria.
Echo�05/02/2024: Normal left ventricular size and systolic function. No regional wall motion
abnormalities are seen. LV ejection fraction is 65-70% by Ghotra's method of discs. Mild concentric left ventricular hypertrophy. Diastolic function indeterminate. There is no cardiac embolic source seen
Past Medical History: HTN, DLP, overactive bladder, osteoporosis, BMI 21�
Procedure History:�Not sure, mentioned giving but no .
Family History:�Brother from appendectomy surgery, dad�heart disease, cancer in the family
�
Social History:�
Functional Level Premorbidly:�Independent with all activities, very active and independent at baseline, walks 3 miles daily.
Functional Level Currently:�Eating�set up, upper extremity care, lower extremity care�supervision, bed mobility�supervision, transfer�min assist, ambulated 15 feet x 2 without AD and min assist for hand-held assistance then 50 feet with rolling
walker and min assist for balance and cues for safe walker usage.
�
Tobacco:�Denies�
Alcohol:�Denies�
Drug use:�Denies�
�
Lives with:�Lives with son who works outside of home
24-hour assistance available:�Son, Davion, has good ability to care for her at home if needed.
Number of floors:�Two-story
# steps to enter:�4�5 steps at entrance,
# steps to second floor:FF
Potential First floor set up:�Yes, bedroom/bath
Driving:�Yes, not as much
Occupation:�Retired
�
�
Allergies:�
Allergy/AdvReac Type Severity Reaction Status Date / Time
No Known Allergies Allergy Unverified 04/30/24 13:31
�
Review of Systems:�
Constitutional: (x) Normal _
Eye: (x) Normal _
Ear/Nose/Throat: (x) Normal _
Respiratory: (x) Normal _
Cardiovascular: (x) abNormal _urgency HTN
Gastrointestinal: (x) Normal _
Genitourinary: (x) Normal _
Musculoskeletal: (x) Normal _
Integumentary: (x) Normal _
Neurologic: (x) AbNormal- cva, aphasia_expressive<receptive
Psychiatric: (x) Normal _
Endocrine: (x) Normal _
Hematologic/Lymphatic: (x) Normal _
Allergic/Immunologic: (x) Normal _
�
Medications:�
Active Current Visit Medication List
Category Date Time Status
Acetaminophen [Tylenol] Med 04/30/24 21:00 Active
650 mg PO Q4HWA
Aspirin Chewable [Low Strength Aspirin] Med 05/01/24 15:00 Active
81 mg PO DAILY
Bisacodyl [Dulcolax] Med 04/30/24 20:12 Active
10 mg RECTAL [id number] PRN
Clopidogrel Bisulfate [Plavix] Med 05/02/24 08:00 Active
75 mg PO DAILY
Docusate W/Senna [Senokot-S] Med 04/30/24 20:12 Active
1 tablet PO BIDPRN PRN
Flush (0.9% Sodium Chloride) [Flush (Nss)] Med 04/30/24 22:00 Active
See Dose Instructions IV PER PROTOCOL
HydrALAZINE [Apresoline] Med 04/30/24 20:12 Active
10 mg IV Q4HPRN PRN
Lidocaine [Lidocaine 4% Patch] Med 05/02/24 15:00 Active
1 patch TOPICAL DAILY
Losartan [Cozaar] Med 05/01/24 08:00 Active
100 mg PO DAILY
Metoprolol Xl [Toprol Xl] Med 05/01/24 20:00 Active
50 mg PO BID
Ondansetron Injectable [Zofran] Med 04/30/24 20:12 Active
4 mg IV Q6HPRN PRN
Oxybutynin Chloride [Ditropan] Med 04/30/24 20:12 Active
5 mg PO BID
Polyethylene Glycol Powder [Miralax] Med 04/30/24 20:12 Active
17 grams PO DAILYPRN PRN
Remove Patch [Remove Lidocaine Patch] Med 05/03/24 20:00 Active
See Dose Instructions REMOVE DAILY@1999
Rosuvastatin Calcium [Crestor] Med 05/01/24 18:00 Active
10 mg PO QPM
�
Vitals:�
Temp Pulse Resp BP Pulse Ox
97.7 F 61 17 180/51 98
05/02/24 15:16 05/02/24 15:16 05/02/24 15:16 05/02/24 15:16 05/02/24 15:16
Height 4 ft 11.84 in
Actual Weight 50.037 kg
Body Mass Index (BMI) 21.7
�
Physical Exam:�
General Appearance/Observation: Well-developed, well-nourished individual in no apparent distress.�
Pain/Comfort Assessment: Denies�
Mood/Affect: Appropriate�. pleasant. Speaks broken [place]
�
Integumentary/Operative Site:�
�� Pressure Ulcer Evaluation: absent over heels.�
��
�� Other Type of Wound: absent�
��
Eyes: Conjunctiva/Lids: normal���� Pupils: pupils equal round and reactive to light and Accommodation�
Ears/Nose/Throat: oral mucosa moist,� throat clear.������������ Lips/Teeth/Gums: lips - dry
Neck: No muscle spasm or tenderness�
Cardiovascular: Heart: regular, no murmur�
Pulses: dorsalis pedis 2+ bilaterally�
Respiratory: Respiratory Effort/Chest Expansion: normal������� Auscultation: Clear to auscultation bilaterally�
Gastrointestinal: abdomen not tender, no distension, normal abdominal bowel sounds
Genitourinary: No Winters�
Extremities:�Edema: None�Cyanosis: None�Trophic�changes: None
�
Neurology Exam:
Orientation: Alert, Oriented to self, easily distracted, jumps from 1 thought to another. Trying to answer questions while looking at Ipod and scrolling through it. needed cues, redirecting and options to select from- says in hospital. Does not know
name
Memory: impaired due to expressive aphasia. Partially able to understand what she is saying as she has difficulty with expressing words
Comprehension: slow, easily distracted, needs redirecting
Two step command: impaired
Naming: said clock and was able to tell correct time, table
Cranial Nerves:
�� CNII:�Pupillary light reflex: Intact����Visual Field: NT
�� CN III, IV, : Extraocular muscles: Intact�
�� CN V:�Facial Sensation�at�Forehead: Intact,�Maxilla: Intact,�Mandible: Intact
�� CN VII:�Facial movement: Symmetric
�� CN VIII:�Hearing: Normal
�� CN IX/X:�Speech & swallow: expressive<receptive aphasia�Position of Uvula: Midline
�� CN XI:�Shoulder shrug: Symmetric
�� CN XII:�Tongue protrusion: Midline
Sensory:
�� Light touch: Intact in bilateral upper and lower extremities
��
�
Reflexes:
�� Biceps: 3+ bilaterally
�� Brachioradialis: 3+ bilaterally
�� Triceps: 3+ bilaterally
�� Patellar: 3+ bilaterally
�� Achilles: 1+ bilaterally
�� Babinski: Down going bilaterally
�� Clonus: None
�� Elizabeth: Negative bilaterally�
Cerebellar: Dysmetria/Ataxia: Some difficulty with finger to nose coordination due to some impairment with secretary receptionist and following sequencing�
Musculoskeletal:
Motor: (Manual muscle scale 0-5)�
Muscle SA EF WE EE FF FA HF KE DF EHL PF
Right� 5 5 5 5 5 5 5 5 5 5 5
Left 5 5 5 5 5 5 5 5 5 5 5
�
Tone: Normal in all extremities�
Range of Motion: Passively within normal limits in all extremities�
�
Lab Results
Laboratory Data
05/02/24 07:09
05/02/24 07:09
Total Bilirubin 0.7 mg/dl (0.2-1.3) 04/30/24 13:35
AST 27 U/L (14-36) 04/30/24 13:35
ALT 23 U/L (0-35) 04/30/24 13:35
Alkaline Phosphatase 79 U/L (38-126) 04/30/24 13:35
Total Protein 7.5 g/dl (6.3-8.2) 04/30/24 13:35
Albumin 4.8 g/dl (3.5-5.0) 04/30/24 13:35
�
Diagnostic Results:�as per HPI�
�Brain MRI�Punctate focus of restricted diffusion in the lateral aspect of the left lentiform nucleus, compatible with a small focus of acute to subacute infarction. Moderate diffuse atrophy.
Assessment: Patient is 83-year-old female with PMH of (essential hypertension, cachexia, overactive bladder, hyperlipidemia) who came to ER on 04/30/2024 with confusion and high blood pressure from home. Found to have aphasia and Acute left lentiform
nucleus stroke MRI
�
Plan�
�PT/OT to increase independence with ADLs, improve balance, coordination, endurance, strength, mobility, community reintegration, decreased burden of care on others and family education.�
�
CVA: Acute left lentiform nucleus stroke. Likely etiology�small vessel disease. Neuro recommended aspirin and Plavix for 21 days (last dose ) followed by ASA 81 mg QD indefinitely, statin, and blood pressure control (SBP less than 180 and
diastolic less than 100 to participate with therapy for ischemic stroke). Continue to monitor neurologic status.�
Dysarthria: speech evaluation�
Aphasia: speech evaluation. Expressive < receptive�
HTN:Hypertensive emergency -treated with IV medications and po Losartan 100mg qd, Metoprolol Succinate 50mg bid, monitor closely�
HLD: Atorvastatin 40 mg at bedtime
Coronary artery disease�: Aspirin, statin, beta-lizett�
Anemia: Likely multifactorial.� Continue to monitor.�
Psych: Psychology consult.� Monitor mood, adjust medications as needed.�
Skin: monitor for pressure sores/rashes/lesions.�
Pain: acetaminophen or oxycodone as needed.�
Bowel: Colace and Senna, PRN bisacodyl.�
Bladder: Time void, PVRs, PRN straight cath.�
GI Prophylaxis: Pantoprazole�
Nausea: Zofran 4 mg IV every 6 as needed
DVT Prophylaxis:mechanical and anticoagulation when cleared by neurology
Pulmonary: Incentive spirometry�
Safety: Continue to reinforce assistance with all transfers.�
Code Status:� Full code
Dispo�(date/plan/equipment needs): Home with family care.� Social history reviewed.�
�
Functional and Medical Goals:�Modified Independent with ADL�s, ambulation, transfers�
�
Discharge Destination:�Acute inpatient Rehabilitation
�
Summary of recommendations: Would benefit from Acute inpatient for PT/OT/Speech to increase independence with ADLs, improve balance, coordination, endurance, strength, mobility, community reintegration, decreased burden of care on others and family
education once BP under better control, all recommended testings have been completed and patient has been cleared by neurology and cardiology.�
CVA: Acute left lentiform nucleus stroke. Likely etiology�small vessel disease. Neuro recommended aspirin and Plavix for 21 days (last dose /) followed by ASA 81 mg QD indefinitely, statin, and blood pressure control (SBP less than 180 and
diastolic less than 100 to participate with therapy for ischemic stroke). Continue to monitor neurologic status.�
HTN:Hypertensive emergency -treated with IV medications. Now on Losartan 100mg qd, Metoprolol Succinate 50mg bid, Hydralazine 10mg Iv Q 4 hours prn. monitor closely. BP to be controlled on PO medications prior to discharge
DVT Prophylaxis:mechanical and please comment on SC anticoagulation when cleared by neurology
Thank you for allowing me to care for your patient. Please contact me with any questions or concerns.
Bowel: Colace and Senna, PRN bisacodyl.�
Bladder: Time void, PVRs, PRN straight cath
Pulmonary: Incentive spirometry�.�
Thank you for allowing me to care for your patient. Please contact me with any questions or concerns.

Documented by User: Aidan Meyer MD 05/03/24 00:12
Consultation - Medical
-
Referring Provider:�Ozzie Danielson
Chief Complaint:CVA�
�
History of Present Illness:�Patient is 83-year-old right-handed female with PMH of (essential hypertension, cachexia, overactive bladder, hyperlipidemia) who came to ER on 04/30/2024 with confusion and high blood pressure from home. Due to language
barrier history is limited. Story provided by her son. Patient was on combination of hydrochlorothiazide/losartan with added Toprol XL recently by family physician. As patient was feeling dizzy, she stopped taking all her meds 1 week prior. She
was not feeling well and so came to the ED for evaluation. She presented to the ED with a systolic pressure in the 240s. She was treated with IV labetalol/losartan with improvement in systolic blood pressure. CT scan of the head found without any
acute abnormality. She was noted to have some confusion and recent expressive aphasia.
MRI of the brain showed Punctate focus of restricted diffusion in the lateral aspect of the left lentiform nucleus, compatible with a small focus of acute to subacute infarction.Moderate diffuse atrophy. Severe leukomalacia. Carotid ultrasound and
LISA with bubble studies to be done.
Carotid ultrasound�05/02/2024�Right carotid: Small amount of mixed calcified and noncalcified plaque within the bulb and proximal ICA. Any stenosis is less than 50% based upon velocity criteria. Left carotid: Small amount of calcified plaque within
the carotid bulb and proximal ICA. Any stenosis is less than 50% based upon velocity criteria.
Echo�05/02/2024: Normal left ventricular size and systolic function. No regional wall motion
abnormalities are seen. LV ejection fraction is 65-70% by Ghotra's method of discs. Mild concentric left ventricular hypertrophy. Diastolic function indeterminate. There is no cardiac embolic source seen
Past Medical History: HTN, DLP, overactive bladder, osteoporosis, BMI 21�
Procedure History:�Not sure, mentioned giving but no .
Family History:�Brother from appendectomy surgery, dad�heart disease, cancer in the family
�
Social History:�
Functional Level Premorbidly:�Independent with all activities, very active and independent at baseline, walks 3 miles daily.
Functional Level Currently:�Eating�set up, upper extremity care, lower extremity care�supervision, bed mobility�supervision, transfer�min assist, ambulated 15 feet x 2 without AD and min assist for hand-held assistance then 50 feet with rolling
walker and min assist for balance and cues for safe walker usage.
�
Tobacco:�Denies�
Alcohol:�Denies�
Drug use:�Denies�
�
Lives with:�Lives with son who works outside of home
24-hour assistance available:�Son, Davion, has good ability to care for her at home if needed.
Number of floors:�Two-story
# steps to enter:�4�5 steps at entrance,
# steps to second floor:FF
Potential First floor set up:�Yes, bedroom/bath
Driving:�Yes, not as much
Occupation:�Retired
�
�
Allergies:�
Allergy/AdvReac Type Severity Reaction Status Date / Time
No Known Allergies Allergy Unverified 04/30/24 13:31
�
Review of Systems:�
Constitutional: (x) abNormal _fatigue
Eye: (x) Normal _
Ear/Nose/Throat: (x) Normal _
Respiratory: (x) Normal _
Cardiovascular: (x) abNormal _urgency HTN
Gastrointestinal: (x) Normal _
Genitourinary: (x) Normal _
Musculoskeletal: (x) Normal _
Integumentary: (x) Normal _
Neurologic: (x) AbNormal- cva, aphasia_expressive<receptive, trouble with walking and balance
Psychiatric: (x) Normal _
Endocrine: (x) Normal _
Hematologic/Lymphatic: (x) Normal _
Allergic/Immunologic: (x) Normal _
�
Medications:�
Active Current Visit Medication List
Category Date Time Status
Acetaminophen [Tylenol] Med 04/30/24 21:00 Active
650 mg PO Q4HWA
Aspirin Chewable [Low Strength Aspirin] Med 05/01/24 15:00 Active
81 mg PO DAILY
Bisacodyl [Dulcolax] Med 04/30/24 20:12 Active
10 mg RECTAL [id number] PRN
Clopidogrel Bisulfate [Plavix] Med 05/02/24 08:00 Active
75 mg PO DAILY
Docusate W/Senna [Senokot-S] Med 04/30/24 20:12 Active
1 tablet PO BIDPRN PRN
Flush (0.9% Sodium Chloride) [Flush (Nss)] Med 04/30/24 22:00 Active
See Dose Instructions IV PER PROTOCOL
HydrALAZINE [Apresoline] Med 04/30/24 20:12 Active
10 mg IV Q4HPRN PRN
Lidocaine [Lidocaine 4% Patch] Med 05/02/24 15:00 Active
1 patch TOPICAL DAILY
Losartan [Cozaar] Med 05/01/24 08:00 Active
100 mg PO DAILY
Metoprolol Xl [Toprol Xl] Med 05/01/24 20:00 Active
50 mg PO BID
Ondansetron Injectable [Zofran] Med 04/30/24 20:12 Active
4 mg IV Q6HPRN PRN
Oxybutynin Chloride [Ditropan] Med 04/30/24 20:12 Active
5 mg PO BID
Polyethylene Glycol Powder [Miralax] Med 04/30/24 20:12 Active
17 grams PO DAILYPRN PRN
Remove Patch [Remove Lidocaine Patch] Med 05/03/24 20:00 Active
See Dose Instructions REMOVE DAILY@1999
Rosuvastatin Calcium [Crestor] Med 05/01/24 18:00 Active
10 mg PO QPM
�
Vitals:�
Temp Pulse Resp BP Pulse Ox
97.7 F 61 17 180/51 98
05/02/24 15:16 05/02/24 15:16 05/02/24 15:16 05/02/24 15:16 05/02/24 15:16
Height 4 ft 11.84 in
Actual Weight 50.037 kg
Body Mass Index (BMI) 21.7
�
Physical Exam:�
General Appearance/Observation: Well-developed, well-nourished individual in no apparent distress.�
Pain/Comfort Assessment: Denies�
Mood/Affect: Appropriate�. pleasant. Speaks [place] but goes between [place] and [place]
�
Integumentary/Operative Site:�
�� Pressure Ulcer Evaluation: absent over heels.�
��
Eyes: Conjunctiva/Lids: normal���� Pupils: pupils equal round and reactive to light and Accommodation�
Ears/Nose/Throat: oral mucosa moist,� throat clear.������������ Lips/Teeth/Gums: lips - dry
Neck: No muscle spasm or tenderness�
Cardiovascular: Heart: regular, no murmur�
Pulses: dorsalis pedis 2+ bilaterally�
Respiratory: Respiratory Effort/Chest Expansion: normal������� Auscultation: Clear to auscultation bilaterally�
Gastrointestinal: abdomen not tender, no distension, normal abdominal bowel sounds
Genitourinary: No Winters�
Extremities:�Edema: None�Cyanosis: None�Trophic�changes: None
�
Neurology Exam:
Orientation: Alert, Oriented to self, easily distracted, jumps from 1 thought to another. Trying to answer questions while looking at Ipad and scrolling through it. needed cues, redirecting and options to select from- says in hospital. Does not know
name
Memory: impaired due to expressive aphasia. Partially able to understand what she is saying as she has difficulty with expressing words
Comprehension: slow, easily distracted, needs redirecting
Two step command: impaired
Naming: said clock and was able to tell correct time, table
Cranial Nerves:
�� CNII:�Pupillary light reflex: Intact����Visual Field: Intact
�� CN III, IV, : Extraocular muscles: Intact�
�� CN V:�Facial Sensation�at�Forehead: Intact,�Maxilla: Intact,�Mandible: Intact
�� CN VII:�Facial movement: Mild right facial weakness
�� CN VIII:�Hearing: Normal
�� CN IX/X:�Speech & swallow: expressive more than receptive aphasia�Position of Uvula: Midline
�� CN XI:�Shoulder shrug: Symmetric
�� CN XII:�Tongue protrusion: Midline
Sensory:
�� Light touch: Intact in bilateral upper and lower extremities
��
�
Reflexes:
�� Biceps: 2+ bilaterally
�� Brachioradialis: 2+ bilaterally
�� Triceps: 2+ bilaterally
�� Patellar: 2+ bilaterally
�� Achilles: 2+ bilaterally
�� Babinski: Down going bilaterally
�� Clonus: None
�� Elizabeth: Negative bilaterally�
Cerebellar: Dysmetria/Ataxia: Some difficulty with finger to nose coordination due to some impairment with secretary receptionist and following sequencing�
Musculoskeletal:Motor: (Manual muscle scale 0-5)�
Muscle SA EF WE EE FF FA HF KE DF EHL PF
Right� 4 5 5 5 5 4 4 5 5 5 5
Left 5 5 5 5 5 5 5 5 5 5 5
�
Tone: Normal in all extremities�
Range of Motion: Passively within normal limits in all extremities�
�
Lab Results
Laboratory Data
05/02/24 07:09
05/02/24 07:09
Total Bilirubin 0.7 mg/dl (0.2-1.3) 04/30/24 13:35
AST 27 U/L (14-36) 04/30/24 13:35
ALT 23 U/L (0-35) 04/30/24 13:35
Alkaline Phosphatase 79 U/L (38-126) 04/30/24 13:35
Total Protein 7.5 g/dl (6.3-8.2) 04/30/24 13:35
Albumin 4.8 g/dl (3.5-5.0) 04/30/24 13:35
�
Diagnostic Results:�as per HPI�
�Brain MRI�Punctate focus of restricted diffusion in the lateral aspect of the left lentiform nucleus, compatible with a small focus of acute to subacute infarction. Moderate diffuse atrophy.
Assessment:
83-year-old female with PMH of (essential hypertension, cachexia, overactive bladder, hyperlipidemia) who came to ER on 04/30/2024 with confusion and high blood pressure from home. Found to have aphasia and Acute left lentiform nucleus stroke MRI
�
Plan�
PT/OT to increase independence with ADLs, improve balance, coordination, endurance, strength, mobility, community reintegration, decreased burden of care on others and family education.�
�
CVA: Acute left lentiform nucleus stroke. Likely etiology�small vessel disease. Neuro recommended aspirin and Plavix for 21 days (last dose 05/21/24) followed by aspirin 81 mg QD indefinitely, statin, and blood pressure control (SBP less than 180
and diastolic less than 100 to participate with therapy for ischemic stroke). Continue to monitor neurologic status.�
Dysarthria: speech �
Aphasia: speech. Expressive more than receptive�
HTN:Hypertensive emergency -treated with IV medications and po Losartan 100mg qd, Metoprolol Succinate 50mg bid, monitor closely�
HLD: Atorvastatin 40 mg at bedtime
Coronary artery disease�: Aspirin, statin, beta-lizett�
Anemia: Likely multifactorial.� Continue to monitor.�
Psych: Psychology consult.� Monitor mood, adjust medications as needed.�
Skin: monitor for pressure sores/rashes/lesions.�
Pain: acetaminophen or oxycodone as needed.�
Bowel: Colace and Senna, PRN bisacodyl.�
Bladder: Time void, PVRs, PRN straight cath.�
GI Prophylaxis: Pantoprazole�
Nausea: Zofran 4 mg IV every 6 as needed
DVT Prophylaxis:mechanical and chemoprophylaxis when cleared by neurology
Pulmonary: Incentive spirometry�
Safety: Continue to reinforce assistance with all transfers.�
Code Status:� Full code
Dispo�(date/plan/equipment needs): Home with family care.� Social history reviewed.�
Functional and Medical Goals:�Modified Independent with ADL�s, ambulation, transfers�
Discharge Destination:�Acute inpatient Rehabilitation
�
Attending Statement:
I saw and examined the patient 05/02/2024. Reviewed care plan with patient, therapy, nursing, and physician assistant to the president. I agree with the above subjective and physical exam, and plan as documented by RADHA Martinez with adjustments made as necessary. A
total of 60 minutes were spent with the patient preparing for the evaluation, obtaining history, performing examination and evaluation, counseling, data review, case management, care coordination, special order jeweler, and EMR documentation as well as
discussion with patient and son.
Summary of recommendations: Would benefit from Acute inpatient for PT/OT/Speech to increase independence with ADLs, improve balance, coordination, endurance, strength, mobility, community reintegration, decreased burden of care on others and family
education once BP under better control, all recommended testings have been completed and patient has been cleared by neurology and cardiology.�
CVA: Acute left lentiform nucleus stroke. Likely etiology�small vessel disease. Neuro recommended aspirin and Plavix for 21 days (last dose 05/21/24) followed by aspirin 81 mg daily indefinitely, statin, and blood pressure control (SBP less than 180
and diastolic less than 100 to participate with therapy for ischemic stroke). Continue to monitor neurologic status.�
Dysarthria: speech �
Aphasia: speech. Expressive more than receptive�
HTN:Hypertensive emergency -treated with IV medications. Now on Losartan 100mg qd, Metoprolol Succinate 50mg bid, Hydralazine 10mg Iv Q 4 hours prn. monitor closely. BP to be controlled on PO medications prior to discharge.
DVT Prophylaxis:mechanical and please comment on chemoprophylaxis when cleared by neurology
Bowel: Colace and Senna, PRN bisacodyl.�
Bladder: Time void, PVRs, PRN straight cath
Pulmonary: Incentive spirometry.�
Thank you for allowing me to care for your patient. Please contact me with any questions or concerns.
[2024-05-03] VITALS (7 sets, daily range): BP systolic 115–206; BP diastolic 45–70
[2024-05-03] MEDS: APRESOLINE 10 MG IV ×2 (00:05→19:42)
[2024-05-03] MEDS: TYLENOL PO ×3 (00:09→23:06)
[2024-05-03 07:45] LABS: Hematocrit 34.5 % (37.0-47.0); Hemoglobin 11.4 g/dL (12.0-16.0); Mean Corpuscular Hgb 30.9 pg (27.0-31.0); Mean Corpuscular Volume 93.5 fL (81.0-99.0); Mean Platelet Volume 10.1 fL (7.4-10.4); Platelet Count 321 10^3/uL (130-400); Red Blood Cell Count 3.69 10^6/uL (4.20-5.40); Red Cell Dist. Width 14.5 % (11.5-14.5); White Blood Cell Count 7.4 10^3/uL (4.8-10.8)
--- NOTE | 2024-05-03 07:45 | W.PN.HOSP.TC ---
Addendum entered and electronically signed by Ozzie Danielson MD 05/03/24 23:40:
Attending Addendum-
I saw and evaluated the patient. I reviewed the resident�s note and agree with findings and plan as documented in the resident�s note. Sub: Patients speech more direct and fluent today. Making sense! complains of left gluteal region pain from fall.
Ran NAVARRO / vision changes Extremely pleasant! Full 12 point ROS reviewed and negative except as documented Exam: Vitals reviewed in chart GEN-NAd heart RRR lungs clear abd soft Le no edema Neuro fluent speech sensation intact follows commands AAO x
3
# Hypertensive Emergency
-uncontrolled
-Patient on combination of hydrochlorothiazide/losartan with added Toprol-XL recently by family physician
-As patient was feeling dizzy/off? patient stopped taking all meds 7 days back
-In ER patient blood pressure in systolic 240s
-CT head without any acute abnormality
-cont losartan 100 mg daily and Toprol-XL 50 mg twice daily
-monitor closely
-attempt normotension
# Acute CVA
- GDMT
- MRI-Punctate focus of restricted diffusion in the lateral aspect of the left lentiform nucleus, compatible with a small focus of acute to subacute infarction. Moderate diffuse atrophy. Severe leukomalacia
- Echo 05/02- Normal left ventricular size and systolic function. No regional wall motion
abnormalities are seen. LV ejection fraction is 65-70% mild AR and MR
- sxs and onset more acute in presentation
- Continue Telemetry monitoring.
- Aspiration precautions.
- ASA 81 mg QD indefinitely.
- Plavix 75 mg QD for 21 days.
- Lipitor 40 mg QHS.
- HbA1C- 5.3
- Carotid Doppler ultrasound-<50% stenosis B/L
- Speech therapy.
- PMnR input appreciated
- DVT prophylaxis.
- DC to [facility] when bed avalible
#Hyperlipidemia
- cont lipitor 40mg
- LDL 78
# Overactive bladder
-cont oxybutynin 10 mg bid
DVT prophylaxis -change to lovenox when able
Full code
Dispo DC to [facility] in am
Time spent coordinating care, review of plan of care with resident, personally reviewed records in EMR, med rec, consults, notes, labs, radiology, d/w nursing, CM and neuro � 52 mins
Original Note:
Today's Communication/Plan
-
;/
Assessment / Plan
Assessment / Plan
Assessment/plan
#Hypertensive emergency
-Blood pressure in the ER with systolic in the 240s,
-Evidence of end-organ damage on MRI of brain
-Patient on current regimen losartan, metoprolol
-IV hydralazine 10 mg Q4prn
-Keep goal blood pressure less than 160/100
#Acute ischemic stroke likely from hypertensive crisis
-CT scan head without any acute abnormality
-MRI 05/01/2024- Punctate focus of restricted diffusion in the lateral aspect of the left lentiform nucleus, compatible with a small focus of acute to subacute infarction.Moderate diffuse atrophy. Severe leukomalacia
-Neurology consulted, input appreciated
-Carotid ultrasound 05/19/2024- Right carotid: Small amount of mixed calcified and noncalcified plaque within the bulb and proximal ICA. Any stenosis is less than 50% based upon velocity criteria. Left carotid: Small amount of calcified plaque within
the carotid bulb and proximal ICA. Any stenosis is less than 50% based upon velocity criteria.
-Aspirin 81 mg
-Patient started on Plavix 75 mg p.o. daily for 21 days by neurology
-B12, folate, TSH, lipid profile, A1c all within appropriate level
-Echocardiogram-LV ejection fraction is 65-70%. There is no cardiac embolic source seen
-ST/PT/OT eval
-OT recommending acute rehab once medically stable
-PMnR evaluated patient. Agree with inpatient rehab
#Hyperlipidemia
-Atorvastatin 40mg
#Overactive bladder
-Oxybutynin 10 mg
DVT prophylaxis-SCDs
CODE STATUS; full code
Anticipated Discharge: Today
Subjective/Interval History
-
Patient seen at bedside. No acute complaints. No CP, SB. Oriented to place and person.
Objective Data
-
Labs:
Laboratory Results
05/03/24
06:43
WBC Pending
Hgb Pending
Hct Pending
Plt Count Pending
Sodium Pending
Potassium Pending
Chloride Pending
Carbon Dioxide Pending
BUN Pending
Creatinine Pending
Glucose Pending
Calcium Pending
Vital Signs:
Vital Signs
Temp Pulse Resp BP Pulse Ox
98.1 F 64 17 185/52 96
05/03/24 07:36 05/03/24 07:36 05/03/24 07:36 05/03/24 07:36 05/03/24 07:36
I&O
05/02/24 05/03/24 05/04/24
06:59 06:59 06:59
Intake Total 480 / 480 720 / 720
Output Total 200 / 200
Balance 280 / 280 720 / 720
Review of Systems
-
All other systems: Reviewed and negative (Except as documented)
Physical Exam
-
General: Well Developed, Well Nourished and No Apparent Distress
Respiratory: Clear to Auscultation
Cardiac: Regular Rhythm and S1/S2
GI: Soft, Nontender, Nondistended and Normal Bowel Sounds
Musculoskeletal: No Clubbing and No Edema
Skin: Warm and Dry
Neuro: Awake, Alert and Oriented
Psych: Calm
[2024-05-03] MEDS: PLAVIX 75 MG PO (08:21)
[2024-05-03] MEDS: TYLENOL 650 MG PO ×4 (08:21→19:42)
[2024-05-03] MEDS: LOW STRENGTH ASPIRIN 81 MG PO (08:21)
[2024-05-03] MEDS: DITROPAN 5 MG PO ×2 (08:21→19:42)
[2024-05-03] MEDS: LIDOCAINE 4% PATCH 1 PATCH TOPICAL (08:22)
[2024-05-03] MEDS: TOPROL XL 50 MG PO ×2 (08:22→19:42)
[2024-05-03] MEDS: COZAAR 100 MG PO (08:22)
[2024-05-03 08:28] LABS: Blood Urea Nitrogen 25 mg/dl (7-17); Calcium 9.6 mg/dl (8.4-10.2); Carbon Dioxide 23 mmol/L (22-30); Chloride 106 mmol/L (98-107); Estimated Creatinine Clearance 27 ml/min; Glucose 91 mg/dl (70-99); Potassium 4.5 mmol/L (3.5-5.1); Sodium 138 mmol/L (135-145); eGFR 49.55
--- NOTE | 2024-05-03 10:24 | W.PN.NEURO.1 ---
Today's Communication / Plan
-
.
Subjective/Objective
Subjective Data
Date of Service: May 03, 2024
Neurology Follow Up Note
24-hour events. Hypertensive up to 182/50 2 in the morning, afebrile. Ms. Reece reports no complaints. Continues to have expressive difficulties.
CD-no hemodynamically significant stenosis
Hemoglobin A1c�5.3.
PMH: HTN, DLP, overactive bladder, osteoporosis, BMI 21
SH:originally from [place]; , lives with a son; nonsmoker
FH: Unknown
All:NKDA
ROS: Negative for headache, change in vision, strength. Positive for aphasia
General: Well developed. In no acute distress.
Cardio: Regular rate and rhythm without murmur. Extremities are without cyanosis or edema.
Neuro:
Mental Status: Alert, oriented to person, self, place, year. Moderate expressive less than receptive aphasia. Follows requests. No hemineglect.
Cranial Nerves: Pupils are equally round and reactive to light. EOMs full. BTT BL. No ptosis. No nystagmus. V1-V3 intact to light touch and pinprick bilaterally, symmetric. Mild R facial weakness. Normal hearing AU. The palate elevated well.
SCMs and traps 5/5. Tongue midline. No dysarthria.
Motor: Normal bulk and tone. No pronator or arm drift. Strength 5/5 throughout. No clonus.
Reflexes: Negative grasp bilaterally.
Sensory: Limited due to aphasia
Coordination: No dysmetria or tremor.
Gait: deferred
Assessment and Plan:
I. Acute left lentiform nucleus stroke with nonfluent aphasia. Likely etiology�small vessel disease.
II. Vascular encephalopathy
III. Cerebral microvascular disease
-Blood pressure goal�normotension
-ASA 81 mg QD indefinitely.
-Plavix 75 mg QD for 21 days.
-Lipitor 40 mg QHS.
-Speech therapy.
-No driving
-DVT prophylaxis.
-Outpatient neurology follow-up
-Please recall neurology services any questions or concerns
I personally reviewed all radiology and labs along with past medical records pertinent to current medical problems. Total time spent in patient care is 37 minutes.
Thank you for allowing us to participate in the care of this patient. Please do not hesitate to contact us with any questions or concerns.
Objective Data
Vital Signs
Temp Pulse Resp BP Pulse Ox
36.7 C 64 17 185/52 96
05/03/24 07:36 05/03/24 08:22 05/03/24 07:36 05/03/24 08:22 05/03/24 07:36
Lab Results
05/03/24 06:43
05/03/24 06:43
Sodium 138 mmol/L (135-145) 05/03/24 06:43
Potassium 4.5 mmol/L (3.5-5.1) 05/03/24 06:43
BUN 25 mg/dl (7-17) H 05/03/24 06:43
Glucose 91 mg/dl (70-99) 05/03/24 06:43
Calcium 9.6 mg/dl (8.4-10.2) 05/03/24 06:43
LDL Cholesterol, Calc Cancelled 05/01/24 14:12
Vitamin B12 346 pg/ml (239-931) 05/01/24 06:11
Patient Allergies
No Known Allergies Allergy (Unverified 04/30/24 13:31)
Vital Signs and Labs
-
Vital Signs and Labs:
Vital Signs
Temp Pulse Resp BP Pulse Ox
36.7 C 64 17 185/52 96
05/03/24 07:36 05/03/24 08:22 05/03/24 07:36 05/03/24 08:22 05/03/24 07:36
Lab Results
05/03/24 06:43
05/03/24 06:43
Sodium 138 mmol/L (135-145) 05/03/24 06:43
Potassium 4.5 mmol/L (3.5-5.1) 05/03/24 06:43
BUN 25 mg/dl (7-17) H 05/03/24 06:43
Glucose 91 mg/dl (70-99) 05/03/24 06:43
Calcium 9.6 mg/dl (8.4-10.2) 05/03/24 06:43
LDL Cholesterol, Calc Cancelled 05/01/24 14:12
Vitamin B12 346 pg/ml (239-931) 05/01/24 06:11
Medications
-
Medications:
Generic Name Dose Route Start Last Admin
Trade Name Freq PRN Reason Stop Dose Admin
Acetaminophen 650 mg 04/30/24 21:00 05/03/24 08:21
Acetaminophen 325 Mg Tablet PO 05/28/24 20:59 650 mg
Q4HWA ALFONSO Administration
Aspirin 81 mg 05/01/24 15:00 05/03/24 08:21
Aspirin 81 Mg Chewable Tablet PO 05/29/24 14:59 81 mg
DAILY ALFONSO Administration
Atorvastatin Calcium 40 mg 05/02/24 18:00 05/02/24 16:59
Atorvastatin (Lipitor) 20 Mg Tablet PO 05/30/24 17:59 40 mg
QPM ALFONSO Administration
Bisacodyl 10 mg 04/30/24 20:12
Bisacodyl 10 Mg Rectal Suppository RECTAL 05/28/24 20:11
[id number] PRN
constipation
Clopidogrel Bisulfate 75 mg 05/02/24 08:00 05/03/24 08:21
Clopidogrel 75 Mg Tablet PO 05/22/24 08:01 75 mg
DAILY ALFONSO Administration
Hydralazine HCl 10 mg 04/30/24 20:12 05/03/24 00:05
Hydralazine 20 Mg/Ml Vial IV 05/28/24 20:11 10 mg
Q4HPRN PRN Administration
FOR SBP > 160 or DBP > 110
Lidocaine 1 patch 05/02/24 15:00 05/03/24 08:22
Lidocaine 4% Topical Patch TOPICAL 05/30/24 14:59 1 patch
DAILY ALFONSO Administration
Protocol
Losartan Potassium 100 mg 05/01/24 08:00 05/03/24 08:22
Losartan 100 Mg Tablet PO 05/29/24 07:59 100 mg
DAILY ALFONSO Administration
Metoprolol Succinate 50 mg 05/01/24 20:00 05/03/24 08:22
Metoprolol 50 Mg Extended Release Tablet PO 05/29/24 19:59 50 mg
BID ALFONSO Administration
Ondansetron HCl 4 mg 04/30/24 20:12
Ondansetron 4 Mg/2 Ml Vial IV 05/28/24 20:11
Q6HPRN PRN
nausea and vomiting
Oxybutynin Chloride 5 mg 04/30/24 20:12 05/03/24 08:21
Oxybutynin 5 Mg Tablet PO 05/28/24 20:11 5 mg
BID ALFONSO Administration
Patch Removal 0 patch 05/03/24 20:00
Remove Lidocaine Patch REMOVE 05/31/24 19:59
DAILY@2000 ALFONSO
Polyethylene Glycol 17 grams 04/30/24 20:12
Polyethylene Glycol Powder 17 Grams Packet PO 05/28/24 20:11
DAILYPRN PRN
constipation
Senna/Docusate Sodium 1 tablet 04/30/24 20:12
Docusate W/Senna (Zulma-Colace) Tablet PO 05/28/24 20:11
BIDPRN PRN
constipation
Sodium Chloride 0 flush 04/30/24 22:00
Sodium Chloride 0.9% (Flush) Syringe IV 05/28/24 21:59
PER PROTOCOL ALFONSO
--- NOTE | 2024-05-03 11:17 | CM ---
Addendum entered by Ngoc Lemons RN 05/03/24 15:34:
[facility] will to accept. Will need updated PT note for auth. PT last seen 05/01/2024. OT seen 05/02/2024.
[facility] NPI# [id number]
Dr. Meyer NPI# [id number]
Original Note:
Reviewed the chart notes and spoke with the patient at the beside. IMM reviewed. PMR consult sent with referral to [facility] via [facility]. PMR recommending Acute Rehab. CM continues to be available to patient/family and is monitoring medical plan
for needs at discharge.
Plan: Acute Rehab once bed secured and auth obtained.
[2024-05-03] MEDS: LIPITOR 40 MG PO (16:52)
--- NOTE | 2024-05-03 18:15 | W.DCSUMMARY ---
Addendum entered and electronically signed by Ozzie Danielson MD 05/05/24 21:58:
Read, reviewed, and agree. See same day progress note for additional details.
Angel Danielson MD
Original Note:
Documented by User: Bacilio Cheng MD, Resident 05/05/24 13:27
Discharge Summary
Discharge Data
Date of Admission: 05/01/24
Date of Discharge: 05/05/24
-
Pending Results: No
Hospital Course
Brief hospital course; This is an 83-year-old female with past medical history of essential hypertension, overactive bladder, hyperlipidemia who presented to ER 04/30/2024 due to elevated blood pressure readings at home. On presentation to the ED
her blood pressure was in the 250s systolic. The patient has a history of essential hypertension previously due to elevated blood pressure readings in the past and was started on metoprolol and losartan/hydrochlorothiazide. She decided to
discontinue medication 7 days ago due to feeling dizzy and has not been taking her blood pressure medication at home, also not checking her blood pressure numbers. Her son also reported speech changes different from her typical baseline. On
presentation to the ER her blood pressure was 253/92. Evaluation with a CT scan showed no acute findings. A follow-up MRI was ordered which showed Punctate focus of restricted diffusion in the lateral aspect of the left lentiform nucleus,
compatible with a small focus of acute to subacute infarction, Moderate diffuse atrophy, Severe leukomalacia. Due to findings on MRI, neurology was consulted. Per neurology's assessment, diagnosis was acute left lentiform nucleus stroke with
nonfluent aphasia likely etiology being the small vessel disease. the patient was started on Plavix 75 mg for a total of 21 days and aspirin 81 mg. In addition B12, folate, TSH, lipid profile were all checked which were within appropriate level.
She was further evaluated with a carotid ultrasound which was unremarkable with no significant stenosis. Echocardiogram showed LVEF 65-70%, no cardiac embolic source seen. Throughout the course of hospital stay, her blood pressure was not well
controlled on losartan 100 mg daily, metoprolol XL 50 mg twice daily and as needed IV hydralazine. Norvasc and PRN Clonidine was added to her regimen for optimal control of BP. She was further evaluated by occupational therapist who recommended
acute rehab. PMnR was consulted to evaluate patient for acute inpatient rehab and recommendation was to discharge her to inpatient rehab to increase independence with ADLs, improve balance, coordination, endurance, strength, mobility, community
reintegration. She will be discharged to inpatient rehab today. On the day of discharge, patient was in no acute distress. Lungs are clear to auscultation, S1-S2 present. Abdomen was soft, nontender, nondistended. Muscular strength was 5/5
bilateral upper and lower extremity.
Discharge Plan
-
Patient Disposition: Acute Rehab Facility
Discharge Diagnosis/Procedures: Hypertensive emergency
Acute CVA
Hyperlipidemia
Overactive bladder
Condition: Fair
Diet: No restrictions
Activity: As tolerated
Referrals:
Michael Wilson MD [Family Provider] - in one month
Additional Discharge Medication Instructions: Plavix 75 mg daily for the next 19 days to complete a total of 21 days.
Atorvastatin 40 mg
Aspirin 81 mg
Losartan 100 mg
Amlodipine 5mg
Metoprolol XL 50 mg twice daily
Clonidine 0.1MG bid prn
Prescriptions:
New
atorvastatin 20 mg Tablet
40 mg PO QPM Qty: 30 0RF
metoprolol succinate 50 mg Tablet Extended Release 24 Hr
50 mg PO BID Qty: 30 0RF
clopidogrel 75 mg Tablet
75 mg PO DAILY Qty: 20 0RF
aspirin 81 mg Tablet,Chewable
81 mg PO DAILY Qty: 30 0RF
oxybutynin chloride 5 mg Tablet
5 mg PO BID Qty: 30 0RF
losartan 100 mg Tablet
100 mg PO DAILY Qty: 30 0RF
amlodipine 5 mg Tablet
5 mg PO DAILY Qty: 30 0RF
clonidine HCl 0.1 mg Tablet
0.1 mg PO BIDPRN PRN (Reason: PRN SBP > 160) Qty: 30 0RF
Discharge Orders:
Discharge Patient (As Directed); Ordered 05/05/24
Ordered By: Bacilio Cheng
Discharge Date and Time
Discharge Date/Time: 05/05/24 12:53
Print Language: ICELANDIC

Documented by User: Ozzie Danielson MD 05/05/24 21:56
Discharge Summary
Discharge Data
Date of Admission: 05/01/24
Date of Discharge: 05/05/24
Discharge Plan
-
Patient Disposition: Acute Rehab Facility
Discharge Diagnosis/Procedures: Hypertensive emergency
Acute CVA
Hyperlipidemia
Overactive bladder
Condition: Fair
Diet: No restrictions
Activity: As tolerated
Referrals:
Michael Wilson MD [Family Provider] - in one month
Additional Discharge Medication Instructions: Plavix 75 mg daily for the next 19 days to complete a total of 21 days.
Atorvastatin 40 mg
Aspirin 81 mg
Losartan 100 mg
Amlodipine 5mg
Metoprolol XL 50 mg twice daily
Clonidine 0.1MG bid prn
Prescriptions:
New
atorvastatin 20 mg Tablet
40 mg PO QPM Qty: 30 0RF
metoprolol succinate 50 mg Tablet Extended Release 24 Hr
50 mg PO BID Qty: 30 0RF
clopidogrel 75 mg Tablet
75 mg PO DAILY Qty: 20 0RF
aspirin 81 mg Tablet,Chewable
81 mg PO DAILY Qty: 30 0RF
oxybutynin chloride 5 mg Tablet
5 mg PO BID Qty: 30 0RF
losartan 100 mg Tablet
100 mg PO DAILY Qty: 30 0RF
amlodipine 5 mg Tablet
5 mg PO DAILY Qty: 30 0RF
clonidine HCl 0.1 mg Tablet
0.1 mg PO BIDPRN PRN (Reason: PRN SBP > 160) Qty: 30 0RF
Discharge Orders:
Discharge Patient (As Directed); Ordered 05/05/24
Ordered By: Bacilio Cheng
Discharge Date and Time
Discharge Date/Time: 05/05/24 12:53
Print Language: ICELANDIC
[2024-05-04] VITALS (9 sets, daily range): BP systolic 105–191; BP diastolic 48–76; PULSE 82; O2SAT 99
[2024-05-04] MEDS: APRESOLINE 10 MG IV ×2 (00:25→15:54)
[2024-05-04] MEDS: TYLENOL PO ×2 (05:11→23:59)
--- NOTE | 2024-05-04 07:05 | W.PN.HOSP.TC ---
Addendum entered and electronically signed by Ozzie Danielson MD 05/04/24 23:22:
Attending Addendum-
I saw and evaluated the patient. I reviewed the resident�s note and agree with findings and plan as documented in the resident�s note. Sub: Patients speech direct and fluent. complains of left gluteal region pain from fall. seen with son present.
wants to go home. Rna NAVARRO / vision changes Full 12 point ROS reviewed and negative except as documented Exam: Vitals reviewed in chart GEN-NAD heart RRR lungs clear abd soft Le no edema Neuro fluent speech sensation intact follows commands AAO x 3
MS 5/5
# Hypertensive Emergency
-uncontrolled
-CT head without any acute abnormality
-cont losartan 100 mg daily and Toprol-XL 50 mg twice daily
-add norvasc
-add clonidine prn for SBP > 160
-monitor closely
-attempt normotension
# Acute CVA
- GDMT
- MRI-Punctate focus of restricted diffusion in the lateral aspect of the left lentiform nucleus, compatible with a small focus of acute to subacute infarction. Moderate diffuse atrophy. Severe leukomalacia
- Echo 05/02- Normal left ventricular size and systolic function. No regional wall motion
abnormalities are seen. LV ejection fraction is 65-70% mild AR and MR
- sxs and onset more acute in presentation
- Continue Telemetry monitoring.
- Aspiration precautions.
- ASA 81 mg QD indefinitely.
- Plavix 75 mg QD for 21 days.
- Lipitor 40 mg QHS.
- HbA1C- 5.3
- Carotid Doppler ultrasound-<50% stenosis B/L
- Speech therapy.
- PMnR input appreciated
- DVT prophylaxis.
- DC to [facility] acute [facility]hab when HTN better controlled
#Hyperlipidemia
- cont lipitor 40mg
- LDL 78
# Overactive bladder
-cont oxybutynin 10 mg bid
DVT prophylaxis -change to lovenox when able
Full code
Dispo DC to [facility] when able
Time spent coordinating care, review of plan of care with resident, personally reviewed records in EMR, med rec, consults, notes, labs, radiology, d/w nursing, CM and son � 54 mins
Original Note:
Today's Communication/Plan
-
;/
Assessment / Plan
Assessment / Plan
Assessment/plan
#Hypertensive emergency
-Blood pressure in the ER with systolic in the 240s,
-Evidence of end-organ damage on MRI of brain
-Patient on current regimen losartan, metoprolol
-Add Amlodipine 5mg for blood pressure control
#Acute ischemic stroke likely from hypertensive crisis
-CT scan head without any acute abnormality
-MRI 05/01/2024- Punctate focus of restricted diffusion in the lateral aspect of the left lentiform nucleus, compatible with a small focus of acute to subacute infarction.Moderate diffuse atrophy. Severe leukomalacia
-Neurology consulted, input appreciated
-Carotid ultrasound 05/19/2024- Right carotid: Small amount of mixed calcified and noncalcified plaque within the bulb and proximal ICA. Any stenosis is less than 50% based upon velocity criteria. Left carotid: Small amount of calcified plaque within
the carotid bulb and proximal ICA. Any stenosis is less than 50% based upon velocity criteria.
-Aspirin 81 mg
-Patient started on Plavix 75 mg p.o. daily for 21 days by neurology
-B12, folate, TSH, lipid profile, A1c all within appropriate level
-Echocardiogram-LV ejection fraction is 65-70%. There is no cardiac embolic source seen
-ST/PT/OT eval
-OT recommending acute rehab once medically stable
-PMnR evaluated patient. Agree with inpatient rehab
#Hyperlipidemia
-Atorvastatin 40mg
#Overactive bladder
-Oxybutynin 10 mg
DVT prophylaxis-SCDs
CODE STATUS; full code
Anticipated Discharge: Within 24 hours
Subjective/Interval History
-
Patient seen and examined at bedside. Patient without any acute complaints
Objective Data
-
Labs:
Laboratory Results
05/04/24
06:45
WBC Pending
Hgb Pending
Hct Pending
Plt Count Pending
Sodium Pending
Potassium Pending
Chloride Pending
Carbon Dioxide Pending
BUN Pending
Creatinine Pending
Glucose Pending
Calcium Pending
Vital Signs:
Vital Signs
Temp Pulse Resp BP Pulse Ox
97.9 F 64 16 190/58 98
05/04/24 03:54 05/04/24 03:54 05/04/24 03:54 05/04/24 03:54 05/04/24 03:54
I&O
05/03/24 05/04/24 05/05/24
06:59 06:59 06:59
Intake Total 720 / 720 240 / 240
Balance 720 / 720 240 / 240
Review of Systems
-
All other systems: Reviewed and negative (Except as documented)
Physical Exam
-
General: Well Developed, Well Nourished and No Apparent Distress
Respiratory: Clear to Auscultation
Cardiac: Regular Rhythm and S1/S2
GI: Soft, Nontender, Nondistended and Normal Bowel Sounds
Musculoskeletal: No Clubbing and No Edema
Skin: Warm and Dry
Neuro: Awake, Alert and Oriented
Psych: Calm
[2024-05-04 07:34] LABS: Hematocrit 33.6 % (37.0-47.0); Mean Corp Hgb Conc. 32.7 g/dL (33.0-37.0); Mean Corpuscular Hgb 30.6 pg (27.0-31.0); Mean Corpuscular Volume 93.3 fL (81.0-99.0); Mean Platelet Volume 10.1 fL (7.4-10.4); Platelet Count 318 10^3/uL (130-400); Red Cell Dist. Width 14.4 % (11.5-14.5)
[2024-05-04] MEDS: LOW STRENGTH ASPIRIN 81 MG PO (08:06)
[2024-05-04] MEDS: DITROPAN 5 MG PO ×2 (08:06→20:18)
[2024-05-04] MEDS: PLAVIX 75 MG PO (08:06)
[2024-05-04] MEDS: TOPROL XL PO (08:06)
[2024-05-04] MEDS: COZAAR 100 MG PO (08:06)
[2024-05-04] MEDS: LIDOCAINE 4% PATCH 1 PATCH TOPICAL (08:07)
[2024-05-04] MEDS: TYLENOL 650 MG PO ×4 (08:07→20:38)
[2024-05-04 08:21] LABS: Blood Urea Nitrogen 24 mg/dl (7-17); Calcium 9.5 mg/dl (8.4-10.2); Carbon Dioxide 22 mmol/L (22-30); Chloride 105 mmol/L (98-107); Estimated Creatinine Clearance 27 ml/min; Glucose 87 mg/dl (70-99); Potassium 4.5 mmol/L (3.5-5.1); Sodium 137 mmol/L (135-145); eGFR 49.55
--- NOTE | 2024-05-04 11:54 | CM ---
Addendum entered by Rafaela Rojas RN 05/04/24 17:00:
[facility] ph for report [phone], fax [phone].
Addendum entered by Rafaela Rojas RN 05/04/24 16:52:
Received phone call from Sheyla Tello Reviewer (ph [phone]); [facility] is approved, from 05/04 to 05/17, Reference #[id number]. NR to Elisha at ph [phone], fax [phone].
Spoke with [facility]; auth info provided. Per [facility], as patient has had IV hydralazine for elevated BP today, they are not able to accept the patient today. Per [facility], their policy is no IV BP meds can be given within 24 hrs--->
Resident Prosper notified.
Phone call to arely Prado; left message notifying him of insurance approval for [facility], and that the patient will hopefully go to [facility] tomorrow.
Plan [facility] tomorrow.
Addendum entered by Rafaela Rojas RN 05/04/24 15:12:
Met with patient and spoke with arely Capone by phone; both are aware that insurance approval was requested for [facility]. Patient's speech clearer than when this last saw her, she was conversational and asking appropriate questions such as how many days
she would be staying at [facility]. IMM completed.
Plan [facility] once insurance auth is obtained.
Original Note:
Singaporean/Singaporean speaking patient with Dx acute CVA. Room air. Receiving Plavix. PT/OT recommend acute rehab.
Spoke with [facility]; they are able to accept the patient once insurance approves.
Spoke with Sheyla Cope (ph [phone]); initiated request for [facility]. Reference #[id number]. Clinicals sent via [facility].
Plan [facility] once insurance auth is obtained.
[2024-05-04] MEDS: NORVASC 5 MG PO (12:27)
[2024-05-04] MEDS: MIRALAX 17 GRAMS PO (15:53)
[2024-05-04] MEDS: LIPITOR 40 MG PO (17:56)
[2024-05-04] MEDS: TOPROL XL 50 MG PO (20:18)
[2024-05-05] MEDS: CATAPRES 0.1 MG PO (00:03)
[2024-05-05] MEDS: TYLENOL PO (03:26)
[2024-05-05 03:41] VITALS: BP 152/52
--- NOTE | 2024-05-05 07:28 | W.PN.HOSP.TC ---
Addendum entered and electronically signed by Ozzie Danielson MD 05/05/24 21:58:
Attending Addendum-
I saw and evaluated the patient. I reviewed the resident�s note and agree with findings and plan as documented in the resident�s note. Sub: Patients speech direct and fluent. denies pain. 'Ill go but only for ashort period of time' Ran NAVARRO / vision
changes Full 12 point ROS reviewed and negative except as documented Exam: Vitals reviewed in chart GEN-NAD heart RRR lungs clear abd soft Le no edema Neuro fluent speech sensation intact follows commands AAO x 3 MS 08/22
# Hypertensive Emergency
- much better controlled
-CT head without any acute abnormality
-cont losartan 100 mg daily and Toprol-XL 50 mg twice daily
-cont norvasc
-cont clonidine prn for SBP > 160
-monitor closely as [place]
-attempt normotension
# Acute CVA
- GDMT
- MRI-Punctate focus of restricted diffusion in the lateral aspect of the left lentiform nucleus, compatible with a small focus of acute to subacute infarction. Moderate diffuse atrophy. Severe leukomalacia
- Echo 05/02- Normal left ventricular size and systolic function. No regional wall motion
abnormalities are seen. LV ejection fraction is 65-70% mild AR and MR
- sxs and onset more acute in presentation
- Continue Telemetry monitoring.
- Aspiration precautions.
- ASA 81 mg QD indefinitely.
- Plavix 75 mg QD for 21 days.
- Lipitor 40 mg QHS.
- HbA1C- 5.3
- Carotid Doppler ultrasound-<50% stenosis B/L
- Speech therapy.
- PMnR input appreciated
- DVT prophylaxis.
- DC to [facility] rehab
#Hyperlipidemia
- cont lipitor 40mg
- LDL 78
# Overactive bladder
-cont oxybutynin 10 mg bid
DVT prophylaxis -change to lovenox when able
Full code
Dispo DC to [place] [facility]
Time spent coordinating care, DC planning, review of DC plan of care with resident, transition of care, review of records, med rec/scripts sent electronically, consults, notes, d/w consultants, nursing, family, and CM� 34 mins
Original Note:
Today's Communication/Plan
-
;/
Assessment / Plan
Assessment / Plan
Assessment/plan
#Hypertensive emergency
-Blood pressure in the ER with systolic in the 240s,
-Evidence of end-organ damage on MRI of brain
-Patient on current regimen losartan, metoprolol
-Amlodipine 5mg for blood pressure control
#Acute ischemic stroke likely from hypertensive crisis
-CT scan head without any acute abnormality
-MRI 05/01/2024- Punctate focus of restricted diffusion in the lateral aspect of the left lentiform nucleus, compatible with a small focus of acute to subacute infarction.Moderate diffuse atrophy. Severe leukomalacia
-Neurology consulted, input appreciated
-Carotid ultrasound 05/19/2024- Right carotid: Small amount of mixed calcified and noncalcified plaque within the bulb and proximal ICA. Any stenosis is less than 50% based upon velocity criteria. Left carotid: Small amount of calcified plaque within
the carotid bulb and proximal ICA. Any stenosis is less than 50% based upon velocity criteria.
-Aspirin 81 mg
-Patient started on Plavix 75 mg p.o. daily for 21 days by neurology
-B12, folate, TSH, lipid profile, A1c all within appropriate level
-Echocardiogram-LV ejection fraction is 65-70%. There is no cardiac embolic source seen
-OT recommending acute rehab once medically stable
-PMnR evaluated patient. Agree with inpatient rehab
#Hyperlipidemia
-Atorvastatin 40mg
#Overactive bladder
-Oxybutynin 10 mg
DVT prophylaxis-SCDs
CODE STATUS; full code
Anticipated Discharge: Today
Subjective/Interval History
-
Date of Service: May 05, 2024
Objective Data
-
Vital Signs:
Vital Signs
Temp Pulse Resp BP Pulse Ox
97.4 F 60 16 152/52 97
05/05/24 03:41 05/05/24 03:41 05/05/24 03:41 05/05/24 03:41 05/05/24 03:41
I&O
05/04/24 05/05/24 05/06/24
06:59 06:59 06:59
Intake Total 240 / 240 480 / 480
Balance 240 / 240 480 / 480
Review of Systems
-
All other systems: Reviewed and negative (Except as documented)
Physical Exam
-
General: Well Developed, Well Nourished and No Apparent Distress
Respiratory: Clear to Auscultation
Cardiac: Regular Rhythm and S1/S2
GI: Soft, Nontender, Nondistended and Normal Bowel Sounds
Musculoskeletal: No Clubbing and No Edema
Skin: Warm and Dry
Neuro: Awake, Alert and Oriented
Psych: Calm
[2024-05-05 07:41] VITALS: BP 149/47
[2024-05-05] MEDS: LOW STRENGTH ASPIRIN 81 MG PO (08:20)
[2024-05-05] MEDS: NORVASC 5 MG PO (08:20)
[2024-05-05] MEDS: TYLENOL 650 MG PO ×2 (08:20→11:08)
[2024-05-05] MEDS: TOPROL XL PO (08:21)
[2024-05-05] MEDS: PLAVIX 75 MG PO (08:21)
[2024-05-05] MEDS: COZAAR 100 MG PO (08:21)
[2024-05-05] MEDS: DITROPAN 5 MG PO (08:22)
[2024-05-05] MEDS: LIDOCAINE 4% PATCH 1 PATCH TOPICAL (08:22)
--- NOTE | 2024-05-05 09:22 | CM ---
CM reviewed medical records. Plan for transfer to [place] if medically stable.
[facility] for report [phone], fax [phone].
[2024-05-05 11:18] VITALS: BP 139/53
== END 2024-05-05 12:53 | DRG 65 ==
LOC: 1 ACUTE 14:11
PROVIDERS: Emergency Medicine; Student in an Organized Health Care Education/Training Program; ADMITTING PHYSICIAN Hospitalist; ATTENDING PHYSICIAN Family Medicine; CONSULT PHYSICIAN Physical Medicine & Rehabilitation; CONSULT PHYSICIAN Psychiatry & Neurology Neurology; EMERGENCY PHYSICIAN Emergency Medicine; FAMILY PHYSICIAN Internal Medicine
DX: I63.9 Cerebral infarction, unspecified (principal); I16.1 Hypertensive emergency; I67.4 Hypertensive encephalopathy; I10 Essential (primary) hypertension; Z91.148 Patient's other noncompliance with medication regimen for other reason; E78.5 Hyperlipidemia, unspecified; N32.81 Overactive bladder; Z79.82 Long term (current) use of aspirin; M81.0 Age-related osteoporosis without current pathological fracture; D64.9 Anemia, unspecified; I25.10 Atherosclerotic heart disease of native coronary artery without angina pectoris; I34.81 Nonrheumatic mitral (valve) annulus calcification; Z60.3 Acculturation difficulty; Z82.49 Family history of ischemic heart disease and other diseases of the circulatory system; Z91.128 Patient's intentional underdosing of medication regimen for other reason
CPT/HCPCS: 70450; 70551; 80048; 80053; 80061; 81003; 81015; 82607; 82746; 83036; 83735; 84439; 84443; 85025; 85027; 92523; 93306; 93880; 96374; 97112; 97129; 97162; 97166; 97530; 97535; 99291

== ENCOUNTER 2024-05-25 12:26 | Outpatient (RCR) | payer OTHER, SELFPAY | END 2024-06-07 14:55 | disposition home or self-care (01) | LOC: RST 12:26 | PROVIDERS: ATTENDING PHYSICIAN Physical Medicine & Rehabilitation; FAMILY PHYSICIAN Internal Medicine | DX: I69.328 Other speech and language deficits following cerebral infarction (principal); I63.9 Cerebral infarction, unspecified | CPT/HCPCS: 92507; 92523; 97110; 97162; 97167; 97535 ==

== ENCOUNTER 2024-05-31 14:37 | Inpatient (IN) | payer OTHER, SELFPAY ==
[2024-05-31] VITALS (8 sets, daily range): BP systolic 104–197; BP diastolic 48–79; PULSE 82–91; BMI 24.5; BMI 24.2
[2024-05-31 11:00] LABS: % Basophils 0.2 % (0-2); % Eosinophils 0.3 % (0-6); % Immature Granulocytes 1.1 % (0-0.5); % Lymphocytes 4.9 % (20.5-51.1); % Monocytes 5.9 % (1.7-9.3); % Neutrophils 87.6 % (42.2-75.2); Absolute Immature Granulocytes 0.1 10^3/uL (0-0.05); Absolute Lymphocytes 0.6 10^3/uL (1.2-3.4); Absolute Monocytes 0.8 10^3/uL (0.1-0.6); Absolute Neutrophils 11.4 10^3/uL (1.4-6.5); Hemoglobin 8.9 g/dL (12.0-16.0); Mean Corp Hgb Conc. 35.6 g/dL (33.0-37.0); Mean Corpuscular Hgb 31.4 pg (27.0-31.0); Mean Corpuscular Volume 88.3 fL (81.0-99.0); Mean Platelet Volume 9.4 fL (7.4-10.4); Nucleated Red Blood Cells % 0 %; Platelet Count 421 10^3/uL (130-400); Red Blood Cell Count 2.83 10^6/uL (4.20-5.40)
[2024-05-31 11:13] LABS: ALT (SGPT) 33 U/L (0-35); AST (SGOT) 29 U/L (14-36); Albumin 3.8 g/dl (3.5-5.0); Alkaline Phosphatase 97 U/L (38-126); Blood Urea Nitrogen 31 mg/dl (7-17); Calcium 9.4 mg/dl (8.4-10.2); Carbon Dioxide 18 mmol/L (22-30); Chloride 90 mmol/L (98-107); Glucose 143 mg/dl (70-99); Lipase 353 U/L (23-300); Potassium 4.9 mmol/L (3.5-5.1); Sodium 119 mmol/L (135-145); Total Bilirubin 0.7 mg/dl (0.2-1.3); Total Protein 6.1 g/dl (6.3-8.2); eGFR 44.64
--- NOTE | 2024-05-31 11:26 | ED.GENMED ---
History of Present Illness
General
Chief Complaint: Abdominal Symptoms
Time Seen by Provider: 05/31/24 11:04
History of Present Illness
History of Present Illness:
83-year-old female presents to the emergency department for evaluation of general fatigue and overall weakness. She was recently admitted to this hospital for hypertensive urgency and subsequently discharged to [facility]. Of note she was
persistently hyponatremic at [facility] despite discontinuation of her hydrochlorothiazide. She admits to poor appetite and oral intake unless prompted. Denies any dysuria or hematuria.
Past History
Past History
ED Past Medical History: HTN
Social History
Tobacco: Non-smoker
Alcohol: Occasional
Drug: None
Personal:
Living: with family
Employment: Retired
Review of Systems
Review of Systems
Allergies reviewed?: Yes
All Other Systems: ROS reviewed and negative except as documented in HPI and ROS
Phy Exam
Physical Exam
Physical Exam:
GEN: Well appearing, NAD, WDWN
HEENT: Oral mucosa moist, no scleral icterus
Cardiac: Regular rate
Lung: No respiratory distress, no tachypnea
Rectal: Brown stool in the rectal vault, heme positive
MSK: No gross deformity or injuries
Skin: Good color, no pallor or jaundice, no rashes
Neuro: AO x3, moves all extremities freely, no nystagmus
Psych: Calm, cooperative
Course
Orders/Labs/Results
Orders:
Orders
05/31/24 10:36
Complete Blood Count/With Diff Urgent
Comprehensive Metabolic Panel Urgent
Ferritin Urgent
Comment: ADD ON
Folate Urgent
Comment: ADD ON
Iron Urgent
Lipase Urgent
NT-proBNP Urgent
Serum Osmolality Urgent
Comment: ADD ON
Total Iron Binding Urgent
Vitamin B12 Urgent
Comment: ADD ON
05/31/24 11:25
Add On- LAB Urgent
Tests Added?: serum osmolality
Osmolality, Random Urine Urgent
Urine Sodium Urgent
Pantoprazole [Protonix IV] 80 mg IV NOW STA
05/31/24 11:30
Pantoprazole 80 mg/100 ml Nss [Protonix] 80 mg in 100 ml IV Q10H
05/31/24 11:41
Type+Screen Urgent
05/31/24 12:11
0.9% Sodium Chloride 1000 ml [Nss] 1,000 ml IV BOLUS
05/31/24 13:33
Add On- LAB Stat
Tests Added?: BNP
CR Chest - 2 Views Stat
Comment:
Reason For Exam: sob
05/31/24 13:40
NEPHROLOGY CONSULT Routine
Consulting Provider: Jamie Clemens
Was physician already notified: Yes
05/31/24 13:47
GASTROINTESTINAL CONSULT Routine
Consulting Provider: Patito Brock
Was physician already notified: Yes
05/31/24 13:48
Add On- LAB Stat
Tests Added?: iron, ferritin, b12, folate, TIBC
05/31/24 13:49
Urinalysis Reflex To Culture Routine
05/31/24 13:51
Admit/Transfer Patient As Directed
Co-Sign Provider:
Level of Care: Inpatient admission
Assign to:: Medical/Surgical
Physician / Group: lorri
Diagnosis: acute blood loss anemia
Reason for Hospitalization: acute blood loss anemia
Expected length of stay greater than two midnights?: Yes
ELOS- Estimated Length of Stay in days: 3
I certify the patient meets the requirements for IP care: Yes
05/31/24 13:52
PRN Pain Medication Management As Directed
May give lesser potent ordered pain med per pt: Yes
preference::
Protocol:: Medication orders for pain may be administered in a
manner that supports deferring to patient preference
when the pt is:
- Requesting an ordered lesser potent pain medication.
Least to most potent pain medications are defined
as: acetaminophen < NSAID < tramadol < opioids
(morphine, oxycodone, hydromorphone).
- Requesting a lesser dose of the same medication IF
ORDERED.
- Requesting a less intrusive route of administration
if both routes are prescribed by the provider (PO <
IV).
05/31/24 14:19
COVID-19 Antigen Stat
Source: Nasal Swab
Influenza A+B Rapid Molecular Stat
MER Source: Nasal Swab
Specimen Description:
Abnormal Lab Results
05/31/24
10:36
WBC 13.0 H 10^3/uL
(4.8-10.8)
RBC 2.83 L 10^6/uL
(4.20-5.40)
Hgb 8.9 L g/dL
(12.0-16.0)
Hct 25.0 L %
(37.0-47.0)
MCH 31.4 H pg
(27.0-31.0)
Plt Count 421 H 10^3/uL
(130-400)
Abs Immat Gran (auto) 0.1 H 10^3/uL
(0-0.05)
Absolute Neuts (auto) 11.4 H 10^3/uL
(1.4-6.5)
Absolute Lymphs (auto) 0.6 L 10^3/uL
(1.2-3.4)
Absolute Monos (auto) 0.8 H 10^3/uL
(0.1-0.6)
Immature Gran % 1.1 H %
(0-0.5)
Neutrophils % 87.6 H %
(42.2-75.2)
Lymphocytes % 4.9 L %
(20.5-51.1)
Sodium 119 L* mmol/L
(135-145)
Chloride 90 L mmol/L
(98-107)
Carbon Dioxide 18 L mmol/L
(22-30)
BUN 31 H mg/dl
(7-17)
Creatinine 1.2 H mg/dL
(0.6-1.0)
Glucose 143 H mg/dl
(70-99)
Serum Osmolality 256 L mOsm/kg
(275-300)
Total Protein 6.1 L g/dl
(6.3-8.2)
Lipase 353 H U/L
(23-300)
05/31/24 10:36
05/31/24 10:36
Vital Signs
Initial and Last Documented VS:
Initial Vital Signs
Temp Pulse Resp BP Pulse Ox
98.7 F 70 18 149/50 91
05/31/24 10:20 05/31/24 10:20 05/31/24 10:20 05/31/24 10:20 05/31/24 10:20
Last Documented Vital Signs
Temp Pulse Resp BP Pulse Ox
98.7 F 67 19 148/48 90
05/31/24 10:20 05/31/24 12:30 05/31/24 12:30 05/31/24 12:00 05/31/24 12:30
MDM/Problems Addressed
MDM/Problems Addressed:
Patient's weakness is multifactorial in the setting of worsening hyponatremia as well as new anemia. Presumably upper GI bleed given heme positive stool and rapid hemoglobin decline in 2 weeks. Started the patient on PPI drip, in regards to
hyponatremia she reports generally poor p.o. intake thus there is likely a component of hypovolemia, gentle crystalloid infusion initiated. Will admit to the hospitalist service for further management
*Critical Care Note
Total Time (30-74mins, 75-104mins- exclusive of procedures): Not Applicable
ED Attending Note
-
Portions of this chart may have been created with voice recognition software.� Occasional wrong word or��sound alike� substitutions may have occurred due to the inherent limitations of voice recognition software.
Discharge Plan
Departure
Patient Disposition: Admit
Date of Disposition: 05/31/24
Time of Disposition: 13:15
Admit to: Med/Surg
Presentation/result/management discussed w/ accepting MD/DO: Hospitalist
Discharge Problem:
Acute hyponatremia, Symptomatic anemia
Interventions
Interventions:
*Risk Screen - Suicide Last Done: 05/31/24 10:20
*General Assessment Last Done: 05/31/24 10:20
*Neglect/Abuse Screening Last Done: 05/31/24 10:20
*ED COVID-19 Vaccine History Last Done: 05/31/24 10:20
EK-Ohuuvr-Jyobupqsll Assessment Last Done: 05/31/24 12:48
[2024-05-31 11:48] LABS: Osmolality Serum 256 mOsm/kg (275-300)
[2024-05-31] MEDS: PROTONIX IV 80 MG IV (12:30)
[2024-05-31] MEDS: PROTONIX 100 IV (12:31)
[2024-05-31] MEDS: NSS 1000 IV (13:02)
--- NOTE | 2024-05-31 13:17 | HPS.HSE ---
Family Physician
-
Family Physician: Michael Wilson
Chief Complaint
-
fatigue
History of Present Illness
83-year-old female HTN, HLD presents to the emergency department for evaluation of general fatigue and overall weakness for past three days. She was recently admitted to this hospital for hypertensive urgency and subsequently discharged to [facility]. Of note she was persistently hyponatremic at [facility] despite discontinuation of her hydrochlorothiazide. She admits to poor appetite and oral intake unless prompted. Denies any dysuria or hematuria. patient stated dark stool for some
time. she is complaining of generalized achiness and back pain. she is vomited last night. Patient denied headache, dizzy or syncope. Patient denied chest pain. She is complaining of short of breath. Denied abdominal pain or diarrhea. Denied
dysuria hematuria. she is also complained of generalized bruising on her back, abdomen and b/l arms
Upon arrival she was noted to have low sodium and no low hemoglobin. Patient was also tested for heme positive. She is on Protonix drip and fluids. Admitting for further management
Medical History
Past Medical History
Past Medical History: Reports Other
Additional Past Medical History:
HTN
HLD
Past Surgical History: Reports None
Social History
Tobacco: Non-smoker
Alcohol: None
Drug: None
Personal: Single
Living: With Family
Family History
Family History: Not pertinent
Allergies / Home Medications
Allergies reflects when Allergies were last updated in [employer].
Home Medications with original date entered in [employer]
Allergy/Medication List:
Allergies
Allergy/AdvReac Type Severity Reaction Status Date / Time
No Known Allergies Allergy Verified 05/31/24 10:22
Home Medications
aspirin 81 mg chewable tablet 81 mg PO DAILY stroke. take indefinitely #30 tabs 05/19/24
cholecalciferol (vitamin D3) 25 mcg (1,000 unit) tablet 25 mcg PO DAILY supplement 30 days #30 tabs 05/19/24
clonidine HCl 0.1 mg tablet 0.1 mg PO DAILY Blood pressure 30 days #30 tabs 05/19/24
cyanocobalamin (vitamin B-12) 1,000 mcg tablet 500 mcg (1/2 x 1,000 mcg) PO DAILY Supplement 30 days #15 tabs 05/19/24
hydralazine 50 mg tablet 100 mg (2 x 50 mg) PO TID Blood pressure 30 days #180 tabs 05/19/24
metoprolol succinate 50 mg tablet,extended release 24 hr 50 mg PO BID blood pressure 30 days #60 tabs 05/19/24
oxybutynin chloride 5 mg tablet 5 mg PO BID overactive bladder 30 days #60 tabs 05/19/24
atorvastatin 20 mg tablet 40 mg PO HS cholesterol 05/31/24
nifedipine 90 mg tablet,extended release 90 mg PO NOON 05/31/24
valsartan 320 mg tablet 320 mg PO DAILY 05/31/24
valsartan 40 mg tablet 40 mg PO DAILY 05/31/24
Review of Systems
-
Constitutional: Reports No Symptoms
EENT: Reports No Symptoms
Respiratory: Reports Trouble Breathing
Cardiac: Reports No Symptoms
Abdomen/GI: Reports Vomiting
: Reports No Symptoms
Musculoskeletal: Reports No Symptoms
Skin: Reports No Symptoms
Neurological: Reports Weakness
Endocrine: Reports No Symptoms
Hematologic/Lymphatic: Reports No Symptoms
Psych: Reports No Symptoms
Physical Exam
Vital Signs
Vital Signs
Temp Pulse Resp BP Pulse Ox
98.7 F 67 19 148/48 90
05/31/24 10:20 05/31/24 12:30 05/31/24 12:30 05/31/24 12:00 05/31/24 12:30
Physical Exam
General: Well Developed, Well Nourished and No Apparent Distress
HEENT: NormoCephalic, Moist mucous membranes and Atraumatic
Respiratory: Clear
Cardiac: S1/S2 and Regular Rhythm; No Murmur or Rub
GI: Soft, Non Tender, Non Distended and Normal Bowel Sounds; No Organomegaly
Rectal: Deferred by Provider
Musculoskeletal: No Clubbing, No Cyanosis and No Edema
Skin: Rash and Other (burising on her arms, backs abdomen)
Neuro: AO x 3 and Nonfocal/grossly intact
Psych: Calm
Laboratory Results
-
05/31/24 10:36
05/31/24 10:36
Laboratory Results
Total Bilirubin 0.7 mg/dl (0.2-1.3) 05/31/24 10:36
AST 29 U/L (14-36) 05/31/24 10:36
ALT 33 U/L (0-35) 05/31/24 10:36
Alkaline Phosphatase 97 U/L (38-126) 05/31/24 10:36
Lipase 353 U/L (23-300) H 05/31/24 10:36
Data Reviewed
-
Lab Data: Labs Reviewed by me
Impression/Plan
-
# Hyponatremia likely hypovolemic/acute kidney injury
-Sodium 119, CO2 18, creatinine 1.2
-receiving fluids in Er
-continue fluid restriction
-BMP in am
-nephrology consulted
# Symptomatic anemia over from GI bleed
-Heme positive brown stool
-Hemoglobin 8.9
-Protonix continued
-Clear liquid diet
-obtain iron panel
GI consulted
# Leukocytosis likely stress reaction
-WBCs 13.0
-obtain chest x ray, UA
-obtain COVID, Flu
#acute hypoxic respiratory failure unclear cause
-obtain chest x ray , flu, and COVID
Continue supplemental oxygen to keep sat in the 92
-Wean as tolerated
# Generalized bruising unclear cause
- continue to monitor
#Hypertension
-Hydralazine, metoprolol, nifedipine,continued
-Hold valsartan due to MORRIS
# History of CVA
-Hold aspirin
#Hyperlipidemia
- cont Lipitor 40mg
# Overactive bladder
-cont oxybutynin 10 mg bid
DVT prophylaxis -SCDs
Full code
--- NOTE | 2024-05-31 14:08 | W.PN.UPDATE ---
Update Note
Progress Note Update
This is an addendum to the H&P written by Gladys Alves on 05/31/2024.� Patient seen and examined independently with PHYSICS DEPARTMENT CHAIR.
83-year-old female past medical history of hyponatremia, CVA, CAD, hypertension, hyperlipidemia, anemia, overactive bladder, chronic kidney disease, presenting with generalized fatigue and overall weakness, dark stools and shortness of breath with
sore throat and cough for few days. Vomiting once yesterday. Persistently hyponatremic at [facility] despite discontinuation of chlorthalidone.� Patient received IV fluids and Samsca before discharge on 05/20.
Patient is hypoxemic requiring 3 L oxygen. Appears euvolemic.�
Labs show sodium 119 from 127.� Urine sodium of 38, osmolality of 293 on 05/17.
Leukocytosis of 13.� Hemoglobin of 8.9 from 12.7 only a few weeks ago.� MCV of 88.� Rectal exam reveals brown heme positive stool.
Concern for worsening hyponatremia despite discontinuation of chlorthalidone, addition of IV fluids and dose of Samsca administration before 05/20.� Prior urine studies previously suggest poor solute intake rather than SIADH.� IV fluids being given.�
Check urine sodium and osmolality.� Nephrology consulted.� 32 ounce fluid restriction.
Hemoglobin is dropped significantly with dark stools recently.� Hold Aspirin.�Clear liquid diet.� N.p.o. past midnight.� Check iron studies, B12 and folate.� Protonix drip started.� GI consulted.
Patient could be having upper respiratory infection versus pneumonia to explain hypoxemia.� Check COVID and influenza.� Check chest x-ray.
[2024-05-31 14:45] LABS: COVID-19 Antigen Negative (Negative)
--- NOTE | 2024-05-31 15:09 | CON.GI ---
Addendum entered and electronically signed by Patito Brock MD 05/31/24 17:05:
I saw and examined the patient.
The Resident's note was reviewed and I agree with the note.
Comment: 83-year-old female who was recently admitted to the hospital April 2024 for CVA-no residual weakness at this time, had inpatient rehab and was discharged 05/20/2024 now presenting with complaints of vomiting, couple of non bloody episodes
last night, with abdominal discomfort. She also reports having dark stool since her recent hospitalization, noted to have about 3 g drop in hemoglobin since discharge. She reports that since her discharge, she has had difficulties with swallowing
solids and liquids, she has regurgitation of liquids as well but no choking or coughing episodes. No trouble swallowing pills. No heartburn but reports burning at the back of the throat. Prior to her stroke, no trouble swallowing. No
constipation, diarrhea. No NSAID use. No unintentional weight loss.
Reports having multiple colonoscopies at [facility], last colonoscopy less than 10 years ago, no polyps as per patient.
Never had upper endoscopy.
During hospital visit, she was on aspirin and Plavix combination, subsequently Plavix was discontinued and she is only on baby aspirin.
Reviewing labs, hemoglobin on discharge was 12.7 with baseline between 11-12 and on admission today, it was 8.9, normocytic. Low iron indices. Lipase mildly elevated at 353. Sodium noted to be 119.
-Dark stool with drop in hemoglobin, heme positive in the ER.
Hemodynamically stable.
Rule out esophagitis, ulcer disease, angiectasia versus other
Will need upper endoscopy to evaluate. Need to correct sodium prior to considering upper endoscopy.
Continue Protonix drip for today but okay to switch to IV twice daily tomorrow.
Monitor H&H and transfuse if less than 7.0 g/dL
Could give IV iron infusion
-Dysphagia to solids and liquids with regurgitation of liquids more prominently. This is new since her CVA.
Speech eval noted, concern for possible bottom up aspiration with coughing.
They recommended strict n.p.o. and will get video swallow evaluation tomorrow.
Elevate the head up at all times.
-Mid abdominal discomfort which is mild, very slight elevation in lipase.
Ideally would recommend CT scan with oral and IV contrast but will hold off on that given difficulties with swallowing liquids.
Will follow
Original Note:
Documented by User: Mary Jo Lindsey MD, Resident 05/31/24 16:48
Consultation
-
Date/Time Consultation Requested: 05/31/2024
Date/Time Consultation Performed: 05/31/2024
Requesting Provider: Gladys Alves C
Performing Provider: Mary Jo Lindsey MD
Reason for Consultation: Acute Blood Loss
Medical History
Chief Complaint / HPI
Chief Complaint: Abdominal pain
History of Present Illness:
The patient is a 83 year old female with a PMH of HTN, HLD, hx of hyponatremia and recent CVA who presented to ER after she had a few episodes of nonbloody vomiting, feeling weak, dizzy and shortness of breath. The patient reports eating less due
low appetite since her recent hospitalization at [facility] due stoke. She also reported passing dark stools since her last hospital admission and is not sure when it started. Reports having less bowel movements after she had the stoke event
Additionally, she reports experiencing acid reflux symptoms like burning sensation radiating from her abdomen to mouth and has difficulty with swallowing especially with liquids since her last admission. She denies chest pain, severe abdominal
pain, blood in emesis.
Past Medical History
Past Medical History: CVA, GERD (Reports she had it since last admission ), HTN, Hypercholesterolemia and Other (Hx of Hyponatremia, overactive bladder, chronic kidney disease)
Social History
Tobacco: Non-Smoker
Alcohol: Former (Was drinking one wine daily and stopped since last admission with stroke )
Drug: None
Personal: Single
Living: With Family
Family History
Family History: Reviewed & Not Pertinent
Allergies / Home Medications
Allergy/AdvReac Type Severity Reaction Status Date / Time
No Known Allergies Allergy Verified 05/31/24 10:22
�Medication �Instructions �Recorded
aspirin 81 mg chewable tablet 81 mg PO DAILY stroke. take 05/19/24
indefinitely #30 tabs
cholecalciferol (vitamin D3) 25 25 mcg PO DAILY supplement 30 days 05/19/24
mcg (1,000 unit) tablet #30 tabs
clonidine HCl 0.1 mg tablet 0.1 mg PO DAILY Blood pressure 30 05/19/24
days #30 tabs
cyanocobalamin (vitamin B-12) 500 mcg (1/2 x 1,000 mcg) PO DAILY 05/19/24
1,000 mcg tablet Supplement 30 days #15 tabs
hydralazine 50 mg tablet 100 mg (2 x 50 mg) PO TID Blood 05/19/24
pressure 30 days #180 tabs
metoprolol succinate 50 mg 50 mg PO BID blood pressure 30 05/19/24
tablet,extended release 24 hr days #60 tabs
oxybutynin chloride 5 mg tablet 5 mg PO BID overactive bladder 30 05/19/24
days #60 tabs
atorvastatin 20 mg tablet 40 mg PO HS cholesterol 05/31/24
nifedipine 90 mg tablet,extended 90 mg PO NOON 05/31/24
release
valsartan 320 mg tablet 320 mg PO DAILY 05/31/24
valsartan 40 mg tablet 40 mg PO DAILY 05/31/24
Review of Systems
-
History Source: Patient and Family
Constitutional: Reports No Symptoms
EENT: Reports Other (Dysphagia )
Respiratory: Reports No Symptoms
Cardiac: Reports No Symptoms
Abdomen/GI: Reports Abdominal Pain and Black Stools
: Reports No Symptoms
Musculoskeletal: Reports Other (chronic back pain )
Skin: Reports No Symptoms
Neurological: Reports Dizzy
Endocrine: Reports No Symptoms
Hematologic/Lymphatic: Reports Other
Vital Signs
Temp Pulse Resp BP Pulse Ox
98.7 F 67 19 148/48 90
05/31/24 10:20 05/31/24 12:30 05/31/24 12:30 05/31/24 12:00 05/31/24 12:30
Physical Exam
Exam
General: Well Developed, Well Nourished, Pain and Poor Appetite
HEENT: Normocephalic and Anicteric
Respiratory: Clear
Cardiac: S1/S2 and Regular Rhythm
Breast: Deferred by me
GI: Soft, Non Tender, Non Distended and Other (mild mid-abdominal pain to palpation )
Musculoskeletal: No Clubbing and No Edema
Skin: Warm and Dry
Neuro: Awake, Alert, Oriented, AO x 3, Nonfocal/Grossly Intact and Other
Results
WBC 13.0 10^3/uL (4.8-10.8) H 05/31/24 10:36
Hgb 8.9 g/dL (12.0-16.0) L 05/31/24 10:36
Hct 25.0 % (37.0-47.0) L 05/31/24 10:36
MCV 88.3 fL (81.0-99.0) 05/31/24 10:36
Plt Count 421 10^3/uL (130-400) H 05/31/24 10:36
Absolute Neuts (auto) 11.4 10^3/uL (1.4-6.5) H 05/31/24 10:36
Sodium 119 mmol/L (135-145) L* 05/31/24 10:36
Potassium 4.9 mmol/L (3.5-5.1) 05/31/24 10:36
Chloride 90 mmol/L (98-107) L 05/31/24 10:36
Carbon Dioxide 18 mmol/L (22-30) L 05/31/24 10:36
BUN 31 mg/dl (7-17) H 05/31/24 10:36
Creatinine 1.2 mg/dL (0.6-1.0) H 05/31/24 10:36
Calcium 9.4 mg/dl (8.4-10.2) 05/31/24 10:36
Total Bilirubin 0.7 mg/dl (0.2-1.3) 05/31/24 10:36
AST 29 U/L (14-36) 05/31/24 10:36
ALT 33 U/L (0-35) 05/31/24 10:36
Alkaline Phosphatase 97 U/L (38-126) 05/31/24 10:36
Lipase 353 U/L (23-300) H 05/31/24 10:36
Diagnostic Image Results: No abdominal Diagnostic images
Prior GI Procedures:
EGD: Not known
Colonoscopy: Per patient report, the patient had a few times of colonoscopy at [facility] and no polyps/precancerous lesion was found.
Assessment / Plan
-
Assessment:
Impression: Ms Reece is a 83 year old pleasant lady who presented to ER today after having a few episodes of non-bloody vomiting, feeling weak, dizziness and shortness of breath. The patient`s lab results were found significant for leucocytosis
to 13.0, a low level of Hgb to 8.9, Hyponatremia to 119 and hem positive stool on rectal exam. The patient reported having acid-reflux symptoms, dysphagia and passing dark colored stools since her recent admission due stroke in the middle of
April 2024. The patient has been only on aspirin and denied taking other anti-coagulants or NSAI. Denies being on iron supplement.
Problem List
Possible Acute/Chronic GI bleeding likely Upper GI
CVA complicated with dysphagia
Shortness of breath
Leukocytosis
Hx of hyponatremia
Chronic Kidney Disease
HTN
HLD
#Possible Acute/Chronic GI bleeding likely Upper GI
-Patient is on PPI drip-continue
-EGD is planning after patient becomes more stable in terms of electrolyte imbalance (hyponatremia)
-Abd CT with oral contrast is planning after speech therapy involvement due dysphagia-hold for now
-Appreciate for ST assessment and will wait to hear back after video swallow test
-NPO for now
-Hold on aspirin
-Avoid NSAI medication
-Obtain iron panel for anemia
-Consider RBC transfusion if Hgb<7 gr
-Check Hgb series Q12 H
#CVA complicated with dysphagia
-Hold on aspirin for now
-PT/OT can be considered after some clinical improvement
#Shortness of breath
-Chest Xray
-Covid/influenza test can be considered
-Chest Xray can be considered
-Precautions to prevent aspiration PNA
-Elevate head of the bed
# Hyponatremia l
-Na 119
-Nephrology on board
#Chronic Kidney Disease
-Cr 1.2 likely at her baseline (1.1)
Thanks Dr Brock, having me involved in this patient`s care. We will follow up this patient as GI team.
-
-
Thank you for consultation and allowing me to participate in the patient's care. Please call the [facility] GI physician during the after hours with any questions or concerns.

Documented by User: Patito Brock MD 05/31/24 16:56
Assessment / Plan
-
Assessment:
Impression: Ms Reece is a 83 year old pleasant lady who presented to ER today after having a few episodes of non-bloody vomiting, feeling weak, dizziness and shortness of breath. The patient`s lab results were found significant for leucocytosis
to 13.0, a low level of Hgb to 8.9, Hyponatremia to 119 and hem positive stool on rectal exam. The patient reported having acid-reflux symptoms, dysphagia and passing dark colored stools since her recent admission due stroke in the middle of
April 2024. The patient has been only on aspirin and denied taking other anti-coagulants or NSAI. Denies being on iron supplement.
Problem List
Possible Acute/Chronic GI bleeding likely Upper GI
CVA complicated with dysphagia
Shortness of breath
Leukocytosis
Hx of hyponatremia
Chronic Kidney Disease
HTN
HLD
#Possible Acute/Chronic GI bleeding likely Upper GI
-Patient is on PPI drip-continue
-EGD after patient becomes more stable in terms of electrolyte imbalance (hyponatremia)
-Abd CT with oral contrast for mid abdo pain, after speech therapy involvement due dysphagia-hold for now
-Appreciate for ST assessment and will wait to hear back after video swallow test
-NPO for now
-Hold on aspirin
-Avoid NSAID medication
-Obtain iron panel for anemia
-Consider RBC transfusion if Hgb<7 gr
-Check Hgb series Q12 H
#CVA complicated with dysphagia
-Hold on aspirin for now
-PT/OT can be considered after some clinical improvement
#Shortness of breath
-Chest Xray
-Covid/influenza test can be considered
-Chest Xray can be considered
-Precautions to prevent aspiration PNA
-Elevate head of the bed
# Hyponatremia l
-Na 119
-Nephrology on board
#Chronic Kidney Disease
-Cr 1.2 likely at her baseline (1.1)
Thanks Dr Brock, for having me involved in this patient`s care. We will follow up this patient as GI team.
[2024-05-31 16:18] LABS: Iron 48 ug/dl (37-170)
[2024-05-31 16:27] LABS: Percent Saturation 18 % (20-50); Total Iron Binding Capacity 264 ug/dl (265-497)
--- NOTE | 2024-05-31 16:40 | PTOTSP ---
Dysphagia Evaluation
Patient presents with signs concerning for an unspecified pharyngeal and/or esophageal dysphagia (i.e., c/o stasis and regurgitation with PO intake with subsequent coughing; noted with thin liquids during evaluation) on-going for 4 weeks. Concern
for possible PNA noted.
Recommend:
1. NPO
2. Medications: non-oral if able
3. Hold aspiration risk hydration protocol
4. Video swallow study if/when medically cleared to assess swallowing function, r/o aspiration, develop tx plan/recommendations
[2024-05-31 16:49] LABS: Folate 15.4 ng/ml (2.76-20); Vitamin B12 972 pg/ml (239-931)
--- NOTE | 2024-05-31 17:22 | W.CON.NEPH ---
Consultation
-
Date/Time Consultation Requested: May 31, 2024 at 1300 hours
Date/Time Consultation Performed: May 31, 2024 at 5:30 PM
Requesting Provider: JENNIFER Gar
Performing Provider: Dr. Jamie Clemens
Reason for Consultation: Hyponatremia
Medical History
-
Chief Complaint: hyponatremia
History of Present Illness:
83-year-old female with past medical history of essential hypertension, overactive bladder, hyperlipidemia who presented to ER May 31, 2024 with abdominal pain and nausea vomiting and dark stools.
Previous admission to [facility] on 04/30/2024 due to elevated blood pressure readings at home. At that time imaging showed A follow-up MRI was ordered which showed Punctate focus of restricted diffusion in the lateral aspect of the left
lentiform nucleus, compatible with a small focus of acute to subacute infarction, Moderate diffuse atrophy, Severe leukomalacia. the patient was started on Plavix 75 mg for a total of 21 days and aspirin 81 mg
She now has hyponatremia of 119 down from 127 when she was in rehab. Also has a drop in hemoglobin from 11-8.4.
We have seen the patient in consultation for hyponatremia of 125. At the time it was thought that it was from thiazide diuretic. That medication was discontinued and she responded to Samsca was discharged with a fluid restriction.
Past Medical History
acute CVA, hypertension, overactive bladder, CKD hyponatremia
Social History
Tobacco: Non-Smoker
Alcohol: None
Family History
Family History: Not Pertinent
Allergies / Home Medications
Allergy/AdvReac Type Severity Reaction Status Date / Time
No Known Allergies Allergy Verified 05/31/24 10:22
�Medication �Instructions �Recorded �Confirmed �Type
aspirin 81 mg chewable tablet 81 mg PO DAILY stroke. take 05/19/24 05/31/24 Rx
indefinitely #30 tabs
cholecalciferol (vitamin D3) 25 25 mcg PO DAILY supplement 30 days 05/19/24 05/31/24 Rx
mcg (1,000 unit) tablet #30 tabs
clonidine HCl 0.1 mg tablet 0.1 mg PO DAILY Blood pressure 30 05/19/24 05/31/24 Rx
days #30 tabs
cyanocobalamin (vitamin B-12) 500 mcg (1/2 x 1,000 mcg) PO DAILY 05/19/24 05/31/24 Rx
1,000 mcg tablet Supplement 30 days #15 tabs
hydralazine 50 mg tablet 100 mg (2 x 50 mg) PO TID Blood 05/19/24 05/31/24 Rx
pressure 30 days #180 tabs
metoprolol succinate 50 mg 50 mg PO BID blood pressure 30 05/19/24 05/31/24 Rx
tablet,extended release 24 hr days #60 tabs
oxybutynin chloride 5 mg tablet 5 mg PO BID overactive bladder 30 05/19/24 05/31/24 Rx
days #60 tabs
atorvastatin 20 mg tablet 40 mg PO HS cholesterol 05/31/24 05/31/24 History
nifedipine 90 mg tablet,extended 90 mg PO NOON 05/31/24 05/31/24 History
release
valsartan 320 mg tablet 320 mg PO DAILY 05/31/24 05/31/24 History
valsartan 40 mg tablet 40 mg PO DAILY 05/31/24 05/31/24 History
Review of Systems
-
Black stools. Nausea and abdominal discomfort.
All other systems: Negative unless noted
Physical Exam
Vital Signs
Vital Signs
Temp Pulse Resp BP Pulse Ox
98.7 F 75 21 163/57 93
05/31/24 10:20 05/31/24 17:00 05/31/24 17:00 05/31/24 17:00 05/31/24 17:00
Lab Results
WBC 13.0 10^3/uL (4.8-10.8) H 05/31/24 10:36
RBC 2.83 10^6/uL (4.20-5.40) L 05/31/24 10:36
Hgb 8.9 g/dL (12.0-16.0) L 05/31/24 10:36
Hct 25.0 % (37.0-47.0) L 05/31/24 10:36
Plt Count 421 10^3/uL (130-400) H 05/31/24 10:36
Sodium 119 mmol/L (135-145) L* 05/31/24 10:36
Potassium 4.9 mmol/L (3.5-5.1) 05/31/24 10:36
Chloride 90 mmol/L (98-107) L 05/31/24 10:36
Carbon Dioxide 18 mmol/L (22-30) L 05/31/24 10:36
BUN 31 mg/dl (7-17) H 05/31/24 10:36
Creatinine 1.2 mg/dL (0.6-1.0) H 05/31/24 10:36
eGFR 44.64 05/31/24 10:36
Glucose 143 mg/dl (70-99) H 05/31/24 10:36
Calcium 9.4 mg/dl (8.4-10.2) 05/31/24 10:36
Albumin 3.8 g/dl (3.5-5.0) 05/31/24 10:36
Physical Exam
General no acute distress
HEENT no cephalic atraumatic extraocular muscle intact no scleral icterus no JVD neck supple
lungs clear to auscultation bilateral
heart regular S1-S2 positive
abdomen soft nontender positive bowel sounds
extremities no edema pulses present bilateral
Neurologically nonfocal alert and oriented x 3
Skin no lesions no abrasions no petechiae
Psych normal affect no bizarre behavior
Data Reviewed
-
Radiology: Image Personally Visualized and interpreted (Cephalization on x-ray)
Assessment/Plan
-
83-year-old female with past medical history of essential hypertension, overactive bladder, hyperlipidemia who presented to ER May 31, 2024 with abdominal pain and nausea vomiting and dark stools found to have a drop in hemoglobin and
hyponatremia 119.
The previously seen with a hemoglobin of 125 on rehab for acute stroke. At that time she was placed on Plavix and aspirin.
impression.
Hyponatremia 119. Discharged April from [facility] with a sodium of 127 thought to be from chlorthalidone.
hypertensive emergency status post CVA April 2024 discharged on Plavix and aspirin.
overactive bladder
plan.
Fluid restrict 32 ounces
PPI with GI bleed.
Check urine indices.
No indication for IV fluids at this time recheck labs this evening
Consider Lasix although she is not presenting clinically with any shortness of breath
No acute need for hypertonic saline
[2024-05-31 17:47] LABS: NT-proBNP 11900 pg/ml
--- NOTE | 2024-05-31 18:35 | W.PN.UPDATE ---
Update Note
Progress Note Update
noted to have elevated BNP and chest x ray with highly suggestive of moderate to severe pulmonary edema pattern with small to moderate bilateral pleural effusions.
IV Lasix added
-I&O
daily weight
fluid restriction
ECHO with the impression of 65-70%. no regional wall motion abnormalities seen
--- NOTE | 2024-05-31 20:00 | PTCARENOTE ---
Pt arrived to room 437-02. Pt pivot from stretcher to bed with x2 assist. Pt AAOx3, VSS. Pt oriented to room, call leyva placed within reach.
[2024-05-31] MEDS: LASIX 40 MG IV (20:16)
[2024-05-31] MEDS: TOPROL XL PO (20:46)
[2024-05-31] MEDS: DITROPAN PO (20:46)
[2024-05-31 21:33] LABS: Hematocrit 24.5 % (37.0-47.0); Hemoglobin 8.7 g/dL (12.0-16.0)
[2024-05-31] MEDS: LIPITOR PO (21:33)
[2024-05-31 22:11] LABS: Osmolality Urine 304 mOsm/kg (300-900)
[2024-05-31 22:23] LABS: Urine Sodium 51 mmol/L (30-90)
[2024-05-31 22:25] LABS: Urine Albumin Negative (Neg - Trace); Urine Bilirubin Negative (Negative); Urine Character Clear (Clear); Urine Color Yellow; Urine Glucose Negative (Negative); Urine Ketone Negative (Negative); Urine Leukocyte Negative (Negative); Urine Nitrite Negative (Negative); Urine Occult Blood Negative (Negative); Urine Urobilinogen Negative (Neg - 1+)
[2024-06-01] VITALS (8 sets, daily range): BP systolic 97–197; BP diastolic 43–81; PULSE 67–102; BMI 22.8
[2024-06-01] MEDS: APRESOLINE 5 MG IV (01:32)
[2024-06-01] MEDS: APRESOLINE 10 MG IV (04:52)
--- NOTE | 2024-06-01 07:55 | W.PN.HOSP.TC ---
Today's Communication/Plan
-
Samsca
IV Lasix given pulmonary edema
Assessment / Plan
Assessment / Plan
Physical Exam
General: Not in acute distress
HEENT: Normocephalic, Moist mucous membranes and Atraumatic
Respiratory: Clear to Auscultation Bilaterally
Cardiac: S1/S2 and Regular Rhythm
GI: Soft, Non Tender, Non Distended and Normal Bowel Sounds
Musculoskeletal: No Cyanosis and No Edema
Skin: Rash and Other (bruising on arms, backs, abdomen)
Neuro: AAO x 3 and Nonfocal/grossly intact
Psych: Calm
Assessment/Plan
83-year-old female past medical history of hyponatremia, CVA, CAD, hypertension, hyperlipidemia, anemia, overactive bladder, chronic kidney disease, presented with generalized fatigue and overall weakness, dark stools and shortness of breath with
sore throat and cough for a few days prior to presentation. Vomiting once on the day before presentation. Persistently hyponatremic at [facility] despite discontinuation of chlorthalidone. Patient received IV fluids and Samsca before discharge on
05/20. Patient was hypoxemic at the time of admission, requiring 3 L oxygen. Appeared euvolemic. Initial labs showed sodium 119 from 127. Urine sodium of 38, osmolality of 293 on 05/17. Leukocytosis of 13. Hemoglobin of 8.9 from 12.7 only a few
weeks ago prior to presentation. MCV of 88. Rectal exam reveals brown heme positive stool. Concern for worsening hyponatremia despite discontinuation of chlorthalidone, addition of IV fluids and dose of Samsca administration before 05/20. Prior
urine studies previously suggest poor solute intake rather than SIADH.
Hemoglobin is dropped significantly with dark stools recently. Hold Aspirin. Clear liquid diet. N.p.o. past midnight. Check iron studies, B12 and folate. Protonix drip started. GI consulted.
Patient could be having upper respiratory infection versus pneumonia to explain hypoxemia. Check COVID and influenza. Check chest x-ray.
#Hyponatremia likely hypovolemic/acute kidney injury
-continue PO fluid restriction
-BMP in am
-nephrology consulted
-Samsca
#Elevated BNP
#Moderate to severe pulmonary edema pattern with small to moderate bilateral pleural effusions
-IV Lasix added
-I&O
-daily weight
-fluid restriction
-Cardiology onboard
# Symptomatic anemia over from GI bleed
-Heme positive brown stool
-Hemoglobin 8.9
-Continue pantoprazole 40 mg IV twice daily.
-obtain iron panel
GI consulted
# Leukocytosis likely stress reaction
-WBCs 13.0
-Chest x-ray with moderate to severe pulmonary edema pattern with small to moderate bilateral pleural effusions.
-UA not suggestive of infection
-COVID and Flu negative
#acute hypoxic respiratory failure from pulmonary edema
-Continue Lasix
-Wean as tolerated
# Generalized bruising unclear cause
- continue to monitor
#Hypertension
#Orthostatic Hypotension
-Hydralazine (reduced to 25 mg TID from 100 mg TID due to orthostatic hypotension), metoprolol, nifedipine,continued
-Hold valsartan due to MORRIS
# History of CVA
-Hold aspirin
#Hyperlipidemia
- cont Lipitor 40mg
# Overactive bladder
-cont oxybutynin 10 mg bid
DVT prophylaxis -SCDs
Full code
Anticipated Discharge: 24 - 48 hours
Subjective/Interval History
-
Date of Service: June 01, 2024
Patient was seen and examined. She reported feeling okay, denied any new symptoms or complaints.
Objective Data
-
Labs:
Laboratory Results
05/31/24 06/01/24
21:06 07:43
WBC Pending
Hgb 8.7 L Pending
Hct 24.5 L Pending
Plt Count Pending
Sodium Pending
Potassium Pending
Chloride Pending
Carbon Dioxide Pending
BUN Pending
Creatinine Pending
Glucose Pending
Calcium Pending
Vital Signs:
Vital Signs
Temp Pulse Resp BP Pulse Ox
98.1 F 80 18 198/71 94
05/31/24 23:45 06/01/24 04:52 05/31/24 23:45 06/01/24 04:52 05/31/24 23:45
I&O
05/31/24 06/01/24 06/02/24
06:59 06:59 06:59
Output Total 1800 / 1800
Balance -1800 / -1800
[2024-06-01] MEDS: NSS (PRESERVATIVE FREE) 10 ML IV ×2 (08:27→20:33)
[2024-06-01] MEDS: PROTONIX IV 40 MG IV ×2 (08:27→20:33)
[2024-06-01] MEDS: LASIX 40 MG IV (08:27)
[2024-06-01 09:04] LABS: Hematocrit 24.9 % (37.0-47.0); Hemoglobin 8.9 g/dL (12.0-16.0); Mean Corp Hgb Conc. 35.7 g/dL (33.0-37.0); Mean Corpuscular Hgb 31.2 pg (27.0-31.0); Mean Corpuscular Volume 87.4 fL (81.0-99.0); Mean Platelet Volume 9.6 fL (7.4-10.4); Platelet Count 417 10^3/uL (130-400); Red Blood Cell Count 2.85 10^6/uL (4.20-5.40); Red Cell Dist. Width 13.9 % (11.5-14.5); White Blood Cell Count 10.4 10^3/uL (4.8-10.8)
[2024-06-01] MEDS: CATAPRES PO (09:07)
[2024-06-01] MEDS: DITROPAN PO (09:08)
[2024-06-01] MEDS: TOPROL XL PO (09:08)
--- NOTE | 2024-06-01 09:32 | W.PN.GI.CBS2 ---
Addendum entered and electronically signed by Patito Brock MD 06/01/24 12:23:
I saw and examined the patient.
The Resident's note was reviewed and I agree with the note.
Comment: Patient currently denies any abdominal pain, no further vomiting episodes. No bowel movement since admission.
Hemoglobin seems to be stable since admission.
Continue pantoprazole 40 mg IV twice daily.
Await video swallow evaluation as patient complains of dysphagia to solids and liquids.
Eventually needs upper endoscopy for evaluation of black stool, rule out ulcer disease, esophagitis, versus other.
Await sodium levels to be normalized prior to upper endoscopy.
Can start diet once we get speech recommendations following video swallow evaluation.
Will follow
Original Note:
Today's Communication / Plan
-
-NPO until swallow test by ST
-Abd CT with contrast is planning after ST assessment if there is no risk for oral contrast aspiration
-Continue PPI IV BID
-Hold aspirin and avoid NSAI
Assessment / Plan
-
Assessment:
Impression: Ms Reece is a 83 year old pleasant lady who presented to ER after having a few episodes of non-bloody vomiting, feeling weak, dizziness and shortness of breath. The admission, the patient`s lab results were found
significant for leucocytosis to 13.0, a low level of Hgb to 8.9, Hyponatremia to 119 and hem positive stool on rectal exam. The patient reported having acid-reflux symptoms, dysphagia and passing dark colored stools since her recent admission due
stroke in the middle of April 2024. The patient was started on Plavix and aspirin on her previous hospitalization to [facility], but the patient has been only on aspirin after recent discharge and denied taking other anti-coagulants or NSAI. The
patient was started on PPI drip on admission due to suspicious of upper GI bleeding and it was switched to PPI IV BID. Her recent lab showed her hemoglobin level to 8.9 which is likely stable since yesterday. There was no signs of active GI
bleeding.
Problem List
Possible Acute/Chronic GI bleeding likely Upper GI
CVA complicated with dysphagia
Shortness of breath
Leukocytosis
Hx of hyponatremia
Chronic Kidney Disease
HTN
HLD
#Possible Acute/Chronic GI bleeding likely Upper GI
-Patient is on PPI IV BID
-EGD after patient becomes more stable in terms of electrolyte imbalance (hyponatremia)
-Abd CT with oral contrast for mid abdo pain, after speech therapy involvement due dysphagia-hold for now
-Appreciate for ST assessment and will wait to hear back after video swallow test
-NPO for now until swallow test completed
-Hold on aspirin
-Avoid NSAID medication
-HGB 8.9 L on 06/01/24
-Consider RBC transfusion if Hgb<7 gr/
-Check Hgb series daily
#CVA complicated with dysphagia
-Hold on aspirin for now
-PT/OT can be considered after some clinical improvement
#Shortness of breath
-Chest Xray:moderate to severe pulmonary edema
-Started on furosemide by nephro recc
-Precautions to prevent aspiration PNA
-Elevate head of the bed
# Hyponatremia l
-Na at admission 119
-Nephrology on board
#Chronic Kidney Disease
-Cr 1.2 likely at her baseline (1.1)
Thanks Dr Brock, for having me involved in this patient`s care. We will follow up this patient as GI team.
Subjective
Subjective
Date of Service: June 01, 2024
The patient was seen her bed this a.m. and seems comfortable. The patient denies abdominal pain, endorses having discomfort starting from stomach radiating to mouth, endorses having a difficulty with swallowing.
Objective
Data Reviewed
Laboratory Data:
Laboratory Results
06/01/24 07:43
Laboratory Results
Total Bilirubin 0.7 mg/dl (0.2-1.3) 05/31/24 10:36
AST 29 U/L (14-36) 05/31/24 10:36
ALT 33 U/L (0-35) 05/31/24 10:36
Alkaline Phosphatase 97 U/L (38-126) 05/31/24 10:36
Lipase 353 U/L (23-300) H 05/31/24 10:36
Vital Signs and I&O:
Vital Signs
Temp Pulse Resp BP Pulse Ox
98.2 F 82 18 149/81 94
06/01/24 07:00 06/01/24 07:00 06/01/24 07:00 06/01/24 07:00 06/01/24 07:00
I&O
05/31/24 06/01/24 06/02/24
06:59 06:59 06:59
Output Total 1800 / 1800
Balance -1800 / -1800
Physical Exam
Physical Exam
HEENT: Anicteric and Moist mucous membranes
Cardiology: Normal Sinus Rhythm, S1 and S2
Pulmonary: Clear
GI: Soft, Non Distended, Non Tender and Other (See HPI)
Rectal: Other (No bowel movements )
Extremities: No Edema
Neuro: Non Focal
[2024-06-01 09:48] LABS: Blood Urea Nitrogen 22 mg/dl (7-17); Calcium 8.8 mg/dl (8.4-10.2); Carbon Dioxide 17 mmol/L (22-30); Chloride 93 mmol/L (98-107); Estimated Creatinine Clearance 30 ml/min; Glucose 75 mg/dl (70-99); Potassium 3.7 mmol/L (3.5-5.1); Sodium 121 mmol/L (135-145); eGFR 55.55
--- NOTE | 2024-06-01 10:13 | W.PN.NEPH.PH ---
Today's Communication / Plan
-
Samsca 7.5 mg x 1 to be provided
Follow-up electrolytes at 4 PM
Assessment/Plan
-
83-year-old female with past medical history of essential hypertension, overactive bladder, hyperlipidemia who presented to ER May 31, 2024 with abdominal pain and nausea vomiting and dark stools found to have a drop in hemoglobin and
hyponatremia 119.
The previously seen with a hemoglobin of 125 on rehab for acute stroke. At that time she was placed on Plavix and aspirin.
impression.
Hyponatremia 119. Discharged April from [place] [facility] with a sodium of 127 thought to be from chlorthalidone.
hypertensive emergency status post CVA April 2024 discharged on Plavix and aspirin.
overactive bladder
plan.
Fluid restrict at 32 ounces
Sodium only increased to 121 from 119
Congestive heart failure noted on personally reviewed chest x-ray
Will provide 1 dose of samsca 7.5mg
Recheck lites at 4 PM
PPI with GI bleed.
Checked urine indices. Urine osmolality 304
-
-
Date of Service: June 01, 2024
CC / HPI / ROS
-
Chief Complaint:
Hyponatremia
History of Present Illness:
Serum sodium level at 121
Now on 40 mg IV twice daily of Lasix for congestive heart failure decompensation
Hemodynamically stable
Review of Systems:
Nonoliguric
on oxygen
some sob
Labs
-
Labs:
WBC 10.4 10^3/uL (4.8-10.8) 06/01/24 07:43
RBC 2.85 10^6/uL (4.20-5.40) L 06/01/24 07:43
Hgb 8.9 g/dL (12.0-16.0) L 06/01/24 07:43
Hct 24.9 % (37.0-47.0) L 06/01/24 07:43
Plt Count 417 10^3/uL (130-400) H 06/01/24 07:43
Sodium 121 mmol/L (135-145) L 06/01/24 07:43
Potassium 3.7 mmol/L (3.5-5.1) 06/01/24 07:43
Chloride 93 mmol/L (98-107) L 06/01/24 07:43
Carbon Dioxide 17 mmol/L (22-30) L 06/01/24 07:43
BUN 22 mg/dl (7-17) H 06/01/24 07:43
Creatinine 1.0 mg/dL (0.6-1.0) 06/01/24 07:43
eGFR 55.55 06/01/24 07:43
Glucose 75 mg/dl (70-99) 06/01/24 07:43
Calcium 8.8 mg/dl (8.4-10.2) 06/01/24 07:43
Xgu-N-Ckzrkqnxtig Pept 62007 pg/ml 05/31/24 10:36
Albumin 3.8 g/dl (3.5-5.0) 05/31/24 10:36
Physical Exam
-
Vital Signs:
Vital Signs
Temp Pulse Resp BP Pulse Ox
98.2 F 82 18 149/81 94
06/01/24 07:00 06/01/24 07:00 06/01/24 07:00 06/01/24 07:00 06/01/24 07:00
Cardiovascular:: Regular rate and rhythm
Respiratory:: Bilateral: Coarse
Lung Excursion:: Normal
Abdomen:: Nontender
Extremity Edema:: +1: Bilateral: (trace)
Winters Catheter: No
--- NOTE | 2024-06-01 10:18 | CON.CAR ---
Addendum entered and electronically signed by Champ Mar MD 06/01/24 13:49:
I saw and examined the patient.
The DISTRICT ENGINEER or PA's note was reviewed and I agree with the note.
Comment: General: Well developed, well nourished in NAD.
Neck: Supple, no JVD, HJR, carotids +2 B/L, no bruits bilaterally.
Heart: Non displaced PMI, RRR, no murmurs, No S3, S4, no rubs.
Lungs: Scattered rhonchi at the bases
Extremities: No clubbing, cyanosis or edema bilaterally.
Neuro: Grossly nonfocal, awake, alert and oriented x3.
Mariposa has a history of hypertension and CVA with admission in April 2024. She presented with weakness and found to be hypoxic with hyponatremia. Cardiology is consulted for CHF. Of note she had been in [place] [facility] and was discharged to home but
subsequently readmitted.
Nephrology is managing diuretics because of hyponatremia and has ordered Samsca. Will assess response.
Original Note:
Consultation
Consultation Request
Date/Time Consultation Requested: 05/31/24 at 1906
Date/Time Consultation Performed: 06/01/24 at 1130
Requesting Provider: Dr. Tuttle
Performing Provider: Dr. Mar
Reason for Consultation: Acute HF
Medical History
-
History of Present Illness:
Patient came to ER yesterday with generalized weakness and was noted to be hypoxic without lab abnormalities leading to admission, cardiology is now consulted for possible acute HF. Patient was just admitted to 05/01/2024 until 05/05/2024 in
the setting of hypertensive emergency and MRI of the brain at that point found an acute/subacute left lentiform nucleus CVA. It was discovered at that time that the patient had stopped taking her outpatient doses of metoprolol and losartan/HCTZ
about a week prior to admission because she felt they were making her dizzy and then the family noticed ongoing speech changes and she was brought to the ER. Patient had echo that admission as noted above on 05/02/2024 that showed a preserved EF
with only mild MR. The patient was noted to be markedly hypertensive during that admission was managed as HTN emergency. Patient was started on Toprol-XL 50 mg twice daily, losartan 100 mg daily, amlodipine 5 mg daily plus clonidine 0.1 mg twice
daily PRN SBP >160. Patient was also placed on a regimen of aspirin and Plavix for 21 days and then aspirin daily thereafter. Patient was sent to [facility] and was there from 05/05/2024 until 05/20/2024. Patient was then discharged to home with
her 2 sons. Patient came back to ER on 05/31/2024 with increasing weakness and fatigue and her initial Hgb was low at 8.9 and she was heme positive on PRIYANKA.
PMH:
Recent admission for HTN emergency and CVA 05/01/24 until 05/05/24
HTN
Past Medical History
Past Medical History: Other (in HPI)
Past Surgical History: None
Social History
Tobacco: Non-Smoker
Alcohol: Occasional
Drug: None
Living: With Family
Family History
Family History: CAD and Cancer
Allergies / Home Medications
Allergy/AdvReac Type Severity Reaction Status Date / Time
No Known Allergies Allergy Verified 05/31/24 10:22
�Medication �Instructions �Recorded �Confirmed �Type
aspirin 81 mg chewable tablet 81 mg PO DAILY stroke. take 05/19/24 05/31/24 Rx
indefinitely #30 tabs
cholecalciferol (vitamin D3) 25 25 mcg PO DAILY supplement 30 days 05/19/24 05/31/24 Rx
mcg (1,000 unit) tablet #30 tabs
clonidine HCl 0.1 mg tablet 0.1 mg PO DAILY Blood pressure 30 05/19/24 05/31/24 Rx
days #30 tabs
cyanocobalamin (vitamin B-12) 500 mcg (1/2 x 1,000 mcg) PO DAILY 05/19/24 05/31/24 Rx
1,000 mcg tablet Supplement 30 days #15 tabs
hydralazine 50 mg tablet 100 mg (2 x 50 mg) PO TID Blood 05/19/24 05/31/24 Rx
pressure 30 days #180 tabs
metoprolol succinate 50 mg 50 mg PO BID blood pressure 30 05/19/24 05/31/24 Rx
tablet,extended release 24 hr days #60 tabs
oxybutynin chloride 5 mg tablet 5 mg PO BID overactive bladder 30 05/19/24 05/31/24 Rx
days #60 tabs
atorvastatin 20 mg tablet 40 mg PO HS cholesterol 05/31/24 05/31/24 History
nifedipine 90 mg tablet,extended 90 mg PO NOON 05/31/24 05/31/24 History
release
valsartan 320 mg tablet 320 mg PO DAILY 05/31/24 05/31/24 History
valsartan 40 mg tablet 40 mg PO DAILY 05/31/24 05/31/24 History
Review of Systems
-
History Source: Patient
All other systems: Negative unless noted
Physical Exam
Vital Signs
Temp Pulse Resp BP Pulse Ox
98.2 F 82 18 149/81 94
06/01/24 07:00 06/01/24 07:00 06/01/24 07:00 06/01/24 07:00 06/01/24 07:00
GEN: NAD. AAOx3
HEENT: MMM
LUNGS: 4 L NC. CTA B/L, no audible wheeze
CV: SR on tele. Reg, S1/S2, no murmur
ABD: soft, BS+, NT, ND
EXT: No clubbing, cyanosis, lesions or edema B/L
NEURO: Gross non-focal
SKIN: Warm, dry and pink. No rash
Lab Results
06/01/24 07:43
06/01/24 07:43
Pqc-O-Zrbebubydpt Pept 88984 pg/ml 02/11/25 10:36
Impression / Plan
-
PCP: Dr. Michael Wilson
Card: None prior to admission
Impression:
Admitted with SOB and abnormal labs 05/31/24
Recent admission for HTN emergency and CVA 05/01/24 until 05/05/24
Acute hypoxic respiratory failure
Hyponatremia
MORRIS
Anemia with heme positive stools 05/31/24
Possible acute HFpEF
Small to moderate B/L pleural effusions
s/p acute/subacute left lentiform nucleus CVA 05/01/24
Severe leukomalacia on MRI brain 05/01/24
HTN
Echo 05/02/2024: EF 65%, mild MR
Plan:
-Patient came to ER yesterday with generalized weakness and was noted to be hypoxic without lab abnormalities leading to admission, cardiology is now consulted for possible acute HF. Patient was just admitted to 05/01/2024 until 05/05/2024 in
the setting of hypertensive emergency and MRI of the brain at that point found an acute/subacute left lentiform nucleus CVA. It was discovered at that time that the patient had stopped taking her outpatient doses of metoprolol and losartan/HCTZ
about a week prior to admission because she felt they were making her dizzy and then the family noticed ongoing speech changes and she was brought to the ER. Patient had echo that admission as noted above on 05/02/2024 that showed a preserved EF
with only mild MR. The patient was noted to be markedly hypertensive during that admission was managed as HTN emergency. Patient was started on Toprol-XL 50 mg twice daily, losartan 100 mg daily, amlodipine 5 mg daily plus clonidine 0.1 mg twice
daily PRN SBP >160. Patient was also placed on a regimen of aspirin and Plavix for 21 days and then aspirin daily thereafter. Patient was sent to [facility] and was there from 05/05/2024 until 05/20/2024. Patient was then discharged to home with
her 2 sons. Patient came back to ER on 05/31/2024 with increasing weakness and fatigue and her initial Hgb was low at 8.9 and she was heme positive on PRIYANKA.
-ECG reviewed by me looks like sinus bradycardia and no acute ischemic changes.
-Records from initial admission and her [facility] stay reviewed in detail by me, very confusing and multiple medication changes. D/C'd from to [facility] on a regimen of Toprol-XL 50 mg BID, losartan 100 mg daily, amlodipine 5 mg daily plus PRN clonidine
0.1 mg twice daily PRN SBP >160. Then with ongoing HTN at [facility] she had nifedipine XL 60 mg twice daily and chlorthalidone 12.5 mg daily added plus they changed losartan to valsartan. Nephrology saw the patient at [facility] due to hyponatremia and
chlorthalidone was stopped. When patient was d/c'd from [facility] on 05/20/2024 she was supposed to be taking clonidine 0.1 mg daily (no longer just PRN), hydralazine 10 mg TID, Toprol XL 50 mg twice daily, valsartan 360 mg daily (which is 4.5 tablets of
an 80 mg tablet) and nifedipine 60 mg daily
-Now with recurrent hyponatremia even though chlorthalidone stopped. Nephrology following again and Samsca plus fluid restriction ordered.
-Cardiology consulted for acute HFpEF based on CXR, pro-BNP and [id number] along with clinical picture of CHF. Cont Lasix 40 mg IV daily, patient was not taking a loop diuretic prior to any of this.
-EF 65% without significant valve disease
-Cont Toprol XL 50 mg BID
-Outpatient dose of valsartan 360 mg daily was stopped due to MORRIS on admission. Cre improved and will ask Nephrology if we can restart a lower dose of 160 mg daily.
-Hold off on aldosterone antagonist for now.
-Consider SGLT-2, but patient has had a dozen medication changes in the last 2 months so might want to ensure stability prior to introducing more meds.
-Follow on tele. No h/o atrial arrhythmia.
-Cont aspirin 81 mg daily for h/o CVA 04/2024.
-GI following for heme positive anemia. Patient also undergoing evaluation for dysphagia and had video swallow eval today
--- NOTE | 2024-06-01 12:39 | PTOTSP ---
Videofluoroscopic swallow study
Summary: Patient presents with WFL oral/pharyngeal stages of swallowing. No penetration or aspiration occurred. See patient care note for details.
Recommendation:
1. Regular, thin liquids
2. Medications as best tolerated
3. Reflux precautions
No further dysphagia tx warranted at the acute care level. Patient was receiving outpatient speech language therapy prior to admission for aphasia. Resume services upon D/C from acute care.
[2024-06-01] MEDS: SAMSCA 7.5 MG PO (13:45)
[2024-06-01] MEDS: PROCARDIA XL (EXTENDED RELEASE) 90 MG PO (15:03)
[2024-06-01 16:48] LABS: Carbon Dioxide 24 mmol/L (22-30); Chloride 91 mmol/L (98-107); Potassium 3.7 mmol/L (3.5-5.1); Sodium 126 mmol/L (135-145)
--- NOTE | 2024-06-01 17:10 | CM ---
salt manager reviewed patient's chart and met with patient and patient lives with her son Johan in a 2 story home, 5 steps to enter, patient has a 1st floor set up with bed and bathroom. Kailee is independent with adl's and uses a walker with
ambulation.
PCP: Dr. Michael Wilson
Pharmacy. [facility] in [place].
Plan; Await PT/OT evaluations.
[2024-06-01] MEDS: APRESOLINE 25 MG PO ×2 (18:14→21:37)
[2024-06-01] MEDS: DITROPAN 5 MG PO (20:32)
[2024-06-01] MEDS: TOPROL XL 50 MG PO (20:32)
[2024-06-01] MEDS: LIPITOR 40 MG PO (21:37)
[2024-06-02 05:52] VITALS: BMI 21.5
[2024-06-02 07:00] VITALS: BP 151/56
[2024-06-02 08:07] LABS: % Basophils 0.5 % (0-2); % Eosinophils 3.2 % (0-6); % Immature Granulocytes 0.9 % (0-0.5); % Lymphocytes 14.6 % (20.5-51.1); % Monocytes 10.6 % (1.7-9.3); % Neutrophils 70.2 % (42.2-75.2); Absolute Eosinophils 0.3 10^3/uL (0-0.7); Absolute Immature Granulocytes 0.1 10^3/uL (0-0.05); Absolute Lymphocytes 1.2 10^3/uL (1.2-3.4); Absolute Monocytes 0.9 10^3/uL (0.1-0.6); Absolute Neutrophils 5.9 10^3/uL (1.4-6.5); Hematocrit 27.1 % (37.0-47.0); Hemoglobin 9.5 g/dL (12.0-16.0); Mean Corp Hgb Conc. 35.1 g/dL (33.0-37.0); Mean Corpuscular Hgb 30.8 pg (27.0-31.0); Mean Platelet Volume 9.4 fL (7.4-10.4); Nucleated Red Blood Cells % 0 %; Platelet Count 434 10^3/uL (130-400); Red Blood Cell Count 3.08 10^6/uL (4.20-5.40); Red Cell Dist. Width 14.4 % (11.5-14.5); White Blood Cell Count 8.5 10^3/uL (4.8-10.8)
[2024-06-02 08:32] LABS: Blood Urea Nitrogen 23 mg/dl (7-17); Calcium 8.4 mg/dl (8.4-10.2); Carbon Dioxide 27 mmol/L (22-30); Chloride 93 mmol/L (98-107); Estimated Creatinine Clearance 23 ml/min; Glucose 82 mg/dl (70-99); Potassium 3.8 mmol/L (3.5-5.1); Sodium 127 mmol/L (135-145); eGFR 40.55
[2024-06-02] MEDS: APRESOLINE 25 MG PO ×3 (08:38→21:11)
[2024-06-02] MEDS: DITROPAN 5 MG PO ×2 (08:39→21:15)
[2024-06-02] MEDS: TOPROL XL 50 MG PO ×2 (08:40→21:10)
[2024-06-02] MEDS: PROTONIX IV 40 MG IV ×2 (08:41→21:10)
[2024-06-02] MEDS: NSS (PRESERVATIVE FREE) 10 ML IV ×2 (08:43→21:10)
[2024-06-02] MEDS: LASIX 40 MG IV (08:43)
[2024-06-02] MEDS: FLUSH (NSS) 3 FLUSH IV (08:44)
--- NOTE | 2024-06-02 09:49 | W.PN.GI.CBS2 ---
Addendum entered and electronically signed by Patito Brock MD 06/02/24 13:01:
I saw and examined the patient.
The resident's note was reviewed and I agree with the note.
Comment: Patient denies any abdominal pain, she does report some intermittent episodes of regurgitation and coughing sensation, no bowel movement since admission
Hemoglobin seems to be stable without drop.
Continue Protonix 40 mg IV twice daily.
Discussed with anesthesiologist, for EGD once sodium is about 130 (hopefully tomorrow).
Reviewed speech pathology recommendation, regular solids with thin liquids okay.
N.p.o. past midnight for possible EGD tomorrow.
With recent see history of CVA, if EGD does not show any evidence of active GI bleeding, okay to resume baby aspirin.
Original Note:
Today's Communication / Plan
-
-EGD will be planned with normal Na levels/ still has hyponatremia
-Continue PPI bid IV
-Low fat diet can be started
-
Assessment / Plan
-
Assessment:
Impression: Ms Reece is a 83 year old pleasant lady who presented to ER after having a few episodes of non-bloody vomiting, feeling weak, dizziness and shortness of breath. The admission, the patient`s lab results were found
significant for leucocytosis to 13.0, a low level of Hgb to 8.9, Hyponatremia to 119 and hem positive stool on rectal exam. The patient reported having likely acid-reflux symptoms, dysphagia and passing dark colored stools since her recent
admission due stroke in the middle of April 2024. The patient was started on Plavix and aspirin on her previous hospitalization due to CVA, but the patient has been only on aspirin after recent discharge and denied taking other anti-coagulants
or NSAI. The patient was started on PPI drip on admission due to suspicious of upper GI bleeding and it was switched to PPI IV BID. Her recent lab showed her hemoglobin level 9.5 L which is likely stable since admission. There is no signs of
active GI bleeding.
Problem List
Possible Acute/Chronic GI bleeding likely Upper GI
CVA complicated with dysphagia
Shortness of breath
Leukocytosis
Hx of hyponatremia
Chronic Kidney Disease
HTN
HLD
#Possible Acute/Chronic GI bleeding likely Upper GI
-Continue PPI IV BID
-EGD can be planned after hyponatremia resolved -Na levels increased from 119 to 127 this am
-Abd CT with oral contrast for mid abdo pain, after speech therapy involvement due dysphagia-hold for now
-Appreciate for ST assessment- F Video Fluoro Swallow Exam: No upper airway penetration or aspiration is identified.-
-Hold on aspirin
-Avoid NSAID medication
-HGB 9.5 L on 06/02/24
-Consider RBC transfusion if Hgb<7 gr
-Check Hgb series daily
#CVA complicated with dysphagia
-Hold on aspirin for now
-PT/OT can be considered
#Shortness of breath
-Chest Xray:moderate to severe pulmonary edema
-Started on furosemide by nephro recc
-Precautions to prevent aspiration PNA
-Elevate head of the bed
# Hyponatremia
-Na at admission 119 improved to 127
-On fluid restriction
-Planning to be given 1 dose of samsca 7.5mg
-Nephrology on board
#Chronic Kidney Disease
-Cr 1.2 likely at her baseline (1.1)
Thanks Dr Brock, for having me involved in this patient`s care. We will follow up this patient as GI team.
Subjective
Subjective
Date of Service: June 02, 2024
Patient denies any abdominal pain, vomiting , diarrhea and reports feeling much better. No bowel movements since admission likely due not eating that much but reports passing gasses during the last night.
Objective
Data Reviewed
Laboratory Data:
Laboratory Results
06/02/24 06:34
06/02/24 06:34
Laboratory Results
Total Bilirubin 0.7 mg/dl (0.2-1.3) 05/31/24 10:36
AST 29 U/L (14-36) 05/31/24 10:36
ALT 33 U/L (0-35) 05/31/24 10:36
Alkaline Phosphatase 97 U/L (38-126) 05/31/24 10:36
Lipase 353 U/L (23-300) H 05/31/24 10:36
Vital Signs and I&O:
Vital Signs
Temp Pulse Resp BP Pulse Ox
98.2 F 77 18 151/56 96
06/01/24 23:17 06/02/24 08:43 06/01/24 23:17 06/02/24 08:43 06/01/24 23:17
I&O
06/01/24 06/02/24 06/03/24
06:59 06:59 06:59
Intake Total 480 / 480
Output Total 1800 / 1800 350 / 350
Balance -1800 / -1800 130 / 130
Physical Exam
Physical Exam
HEENT: Anicteric and Moist mucous membranes
Cardiology: Normal Sinus Rhythm, S1 and S2
Pulmonary: Clear
GI: Soft, Non Distended and Non Tender
Extremities: No Edema and Warm
Neuro: Non Focal
[2024-06-02] MEDS: CATAPRES 0.1 MG PO (11:50)
[2024-06-02] MEDS: PROCARDIA XL (EXTENDED RELEASE) 90 MG PO (12:13)
[2024-06-02 12:41] VITALS: BP 155/55; PULSE 69; O2SAT 98
--- NOTE | 2024-06-02 13:03 | W.PN.NEPH.PH ---
Today's Communication / Plan
-
Maintain IV Lasix and fluid restriction
Serum sodium gradually improving up to 127
Creatinine level up to 1.3 (baseline 1.0)
Assessment/Plan
-
83-year-old female with past medical history of essential hypertension, overactive bladder, hyperlipidemia who presented to ER May 31, 2024 with abdominal pain and nausea vomiting and dark stools found to have a drop in hemoglobin and
hyponatremia 119.
The previously seen with a hemoglobin of 125 on rehab for acute stroke. At that time she was placed on Plavix and aspirin.
impression.
Hyponatremia 119. Discharged April from [facility] with a sodium of 127 thought to be from chlorthalidone.
hypertensive emergency status post CVA April 2024 discharged on Plavix and aspirin.
overactive bladder
plan.
Fluid restrict at 32 ounces to continue,currently NPO for EGD tomorrow
Sodium increased from 121-127 following Samsca administration of 7.5 mg on 06/01/2024
Congestive heart failure noted on personally reviewed chest x-ray, maintaining 40 mg IV daily of Lasix
PPI with GI bleed.
Checked urine indices. Urine osmolality 304
Monitor urine output closely given bladder instability need to assess whether or not there is a urinary retention component
-
-
Date of Service: June 02, 2024
CC / HPI / ROS
-
Chief Complaint:
Hyponatremia
History of Present Illness:
Serum sodium level up to 127 following Samsca administration on 06/01/2024
Now on 40 mg IV tdaily of Lasix for congestive heart failure decompensation
Hemodynamically stable
Review of Systems:
Nonoliguric
on oxygen
some sob
weights down
Labs
-
Labs:
WBC 8.5 10^3/uL (4.8-10.8) 06/02/24 06:34
RBC 3.08 10^6/uL (4.20-5.40) L 06/02/24 06:34
Hgb 9.5 g/dL (12.0-16.0) L 06/02/24 06:34
Hct 27.1 % (37.0-47.0) L 06/02/24 06:34
Plt Count 434 10^3/uL (130-400) H 06/02/24 06:34
Sodium 127 mmol/L (135-145) L 06/02/24 06:34
Potassium 3.8 mmol/L (3.5-5.1) 06/02/24 06:34
Chloride 93 mmol/L (98-107) L 06/02/24 06:34
Carbon Dioxide 27 mmol/L (22-30) 06/02/24 06:34
BUN 23 mg/dl (7-17) H 06/02/24 06:34
Creatinine 1.3 mg/dL (0.6-1.0) H 06/02/24 06:34
eGFR 40.55 06/02/24 06:34
Glucose 82 mg/dl (70-99) 06/02/24 06:34
Calcium 8.4 mg/dl (8.4-10.2) 06/02/24 06:34
Gly-K-Pxautkcwvwb Pept 00015 pg/ml 05/31/24 10:36
Albumin 3.8 g/dl (3.5-5.0) 05/31/24 10:36
Physical Exam
-
Vital Signs:
Vital Signs
Temp Pulse Resp BP Pulse Ox
97.5 F 69 20 161/56 96
06/02/24 07:00 06/02/24 12:13 06/02/24 07:00 06/02/24 12:13 06/02/24 07:00
Cardiovascular:: Regular rate and rhythm
Respiratory:: Bilateral: Coarse
Lung Excursion:: Normal
Abdomen:: Nontender
Extremity Edema:: +1: Bilateral: (trace)
Winters Catheter: No
[2024-06-02 14:36] VITALS: BP 117/49
--- NOTE | 2024-06-02 14:51 | CM ---
Patient seen bedside.
PT recommending rehab vs home, recent [facility] admission.
TT to MD requesting PMR consultation.
CM also discussed skilled rehab options with patient.
Patient would like CM to call sonjaime for son Johan.
Plan: rehab vs skilled vs home with home care.
[2024-06-02 15:00] VITALS: BP 117/49
--- NOTE | 2024-06-02 15:13 | W.PN.HOSP.TC ---
Today's Communication/Plan
-
NPO after midnight for possible EGD tomorrow
Continue IV Lasix, daily 32 ounces maximum PO fluid restriction
Assessment / Plan
Assessment / Plan
Physical Exam
General: Not in acute distress
HEENT: Normocephalic, Moist mucous membranes and Atraumatic
Respiratory: Clear to Auscultation Bilaterally
Cardiac: S1/S2 and Regular Rhythm
GI: Soft, Non Tender, Non Distended and Normal Bowel Sounds
Musculoskeletal: No Cyanosis and No Edema
Skin: Rash and Other (bruising on arms, backs, abdomen)
Neuro: AAO x 3 and Nonfocal/grossly intact
Psych: Calm
Assessment/Plan
83-year-old female past medical history of hyponatremia, CVA, CAD, hypertension, hyperlipidemia, anemia, overactive bladder, chronic kidney disease, presented with generalized fatigue and overall weakness, dark stools and shortness of breath with
sore throat and cough for a few days prior to presentation. Vomiting once on the day before presentation. Persistently hyponatremic at [facility] despite discontinuation of chlorthalidone. Patient received IV fluids and Samsca before discharge on
05/20. Patient was hypoxemic at the time of admission, requiring 3 L oxygen. Appeared euvolemic. Initial labs showed sodium 119 from 127. Urine sodium of 38, osmolality of 293 on 05/17. Leukocytosis of 13. Hemoglobin of 8.9 from 12.7 only a few
weeks ago prior to presentation. MCV of 88. Rectal exam reveals brown heme positive stool. Concern for worsening hyponatremia despite discontinuation of chlorthalidone, addition of IV fluids and dose of Samsca administration before 05/20. Prior
urine studies previously suggest poor solute intake rather than SIADH.
Hemoglobin is dropped significantly with dark stools recently. Hold Aspirin. Clear liquid diet. N.p.o. past midnight. Check iron studies, B12 and folate. Protonix drip started. GI consulted.
Patient could be having upper respiratory infection versus pneumonia to explain hypoxemia. Check COVID and influenza. Check chest x-ray.
#Hyponatremia likely hypovolemic/acute kidney injury
-continue PO fluid restriction 32 ounces daily
-IV Lasix
-BMP in am
-nephrology consulted
-Samsca
#Elevated BNP
#Moderate to severe pulmonary edema pattern with small to moderate bilateral pleural effusions
-IV Lasix added
-I&O
-daily weight
-PO fluid restriction 32 ounces daily
-Cardiology onboard
# Symptomatic anemia over from GI bleed
-Heme positive brown stool
-Hemoglobin 8.9
-Continue pantoprazole 40 mg IV twice daily.
-GI consulted who discussed with anesthesiologist, for EGD once sodium is about 130 (hopefully tomorrow).
-N.p.o. after midnight for possible EGD tomorrow.
-With recent see history of CVA, if EGD does not show any evidence of active GI bleeding, okay to resume baby aspirin.
# Leukocytosis likely stress reaction
-WBCs 13.0
-Chest x-ray with moderate to severe pulmonary edema pattern with small to moderate bilateral pleural effusions.
-UA not suggestive of infection
-COVID and Flu negative
#acute hypoxic respiratory failure from pulmonary edema
-Continue Lasix
-Wean as tolerated
# Generalized bruising unclear cause
- continue to monitor
#Hypertension
#Orthostatic Hypotension
-Hydralazine (reduced to 25 mg TID from 100 mg TID due to orthostatic hypotension), metoprolol, nifedipine,continued
-Hold valsartan due to MORRIS
# History of CVA
-Hold aspirin, but resume if EGD is okay as mentioned above
#Hyperlipidemia
- cont Lipitor 40mg
# Overactive bladder
-cont oxybutynin 10 mg bid
DVT prophylaxis -SCDs
Full code
Anticipated Discharge: 24 - 48 hours
Subjective/Interval History
-
Date of Service: June 02, 2024
Patient was seen and examined. She reported feeling better, denied any active complaints.
Objective Data
-
Labs:
Laboratory Results
06/02/24
06:34
WBC 8.5
Hgb 9.5 L
Hct 27.1 L
Plt Count 434 H
Sodium 127 L
Potassium 3.8
Chloride 93 L
Carbon Dioxide 27
BUN 23 H
Creatinine 1.3 H
Glucose 82
Calcium 8.4
Vital Signs:
Vital Signs
Temp Pulse Resp BP Pulse Ox
97.5 F 74 18 117/49 97
06/02/24 14:36 06/02/24 14:36 06/02/24 14:36 06/02/24 14:36 06/02/24 14:36
I&O
06/01/24 06/02/24 06/03/24
06:59 06:59 06:59
Intake Total 480 / 480
Output Total 1800 / 1800 350 / 350
Balance -1800 / -1800 130 / 130
--- NOTE | 2024-06-02 15:49 | W.PN.CARDCBS ---
Addendum entered and electronically signed by Mela Lyons DO 06/02/24 18:56:
I saw and examined the patient.
The Checker/Stocker's note was reviewed and I agree with the note.
Comment: Patient seen and examined with cardiac PA. Offers no new complaints. Plan for EGD tomorrow
Plan:
-Nephrology and GI notes reviewed.
-EGD cancelled for 06/02/24 due to ongoing hyponatremia. Anticipate EGD tomorrow if labs stable
-Nephrology is managing hyponatremia and diuretics. Plan is for ongoing Lasix IV and fluid restriction. Sodium needs to be greater than 130 for anesthesia per GI note
-Monitor basic metabolic profile
-EF 65% without significant valve disease
-Records from initial admission and her [facility] stay reviewed in detail by me, very confusing and multiple medication changes. D/C'd from to [facility] on a regimen of Toprol-XL 50 mg BID, losartan 100 mg daily, amlodipine 5 mg daily plus PRN clonidine
0.1 mg twice daily PRN SBP >160. Then with ongoing HTN at [facility] they added nifedipine XL 60 mg twice daily and chlorthalidone 12.5 mg daily plus they changed losartan to valsartan. Nephrology saw the patient at [facility] due to hyponatremia and
chlorthalidone was stopped. When patient was d/c'd from [facility] on 05/20/2024 she was supposed to be taking clonidine 0.1 mg daily (no longer just PRN), hydralazine 10 mg TID, Toprol XL 50 mg twice daily, valsartan 360 mg daily (which is 4.5 tablets of
an 80 mg tablet) and nifedipine 60 mg daily
-Currently ordered hydralazine 25 mg TID
-Currently ordered nifedipine XL 90 mg daily
-Currently ordered clonidine 0.1 mg daily
-Cont Toprol XL 50 mg BID
-Outpatient dose of valsartan 360 mg daily was stopped due to MORRIS on admission. Cre improved and will ask Nephrology if we can restart a lower dose of 160 mg daily.
-Hold off on aldosterone antagonist for now.
-Consider SGLT-2, but patient has had a dozen medication changes in the last 2 months so might want to ensure stability prior to introducing more meds.
-Cont aspirin 81 mg daily for h/o CVA 04/2024.
Original Note:
Today's Communication / Plan
-
Lasix 40 mg IV daily
Follow Cre
Impression / Plan
-
PCP: Dr. Michael Wilson
Card: None prior to admission
Impression:
Admitted with SOB and abnormal labs 05/31/24
Recent admission for HTN emergency and CVA 05/01/24 until 05/05/24
Acute hypoxic respiratory failure
Hyponatremia
MORRIS
Anemia with heme positive stools 05/31/24
Possible acute HFpEF
Small to moderate B/L pleural effusions
s/p acute/subacute left lentiform nucleus CVA 05/01/24
Severe leukomalacia on MRI brain 05/01/24
HTN
Echo 05/02/2024: EF 65%, mild MR
Plan:
-Nephrology and GI notes reviewed. EGD cancelled for 06/02/24 due to ongoing hyponatremia. Plan is for ongoing Lasix IV and fluid restriction. Sodium needs to be greater than 130 for anesthesia per GI note
-Cre up to 1.3
-Cont Lasix 40 mg IV daily
-EF 65% without significant valve disease
-Cont Toprol XL 50 mg BID
-Outpatient dose of valsartan 360 mg daily was stopped due to MORRIS on admission. Cre improved and will ask Nephrology if we can restart a lower dose of 160 mg daily.
-Hold off on aldosterone antagonist for now.
-Consider SGLT-2, but patient has had a dozen medication changes in the last 2 months so might want to ensure stability prior to introducing more meds.
-Records from initial admission and her [facility] stay reviewed in detail by me, very confusing and multiple medication changes. D/C'd from to [facility] on a regimen of Toprol-XL 50 mg BID, losartan 100 mg daily, amlodipine 5 mg daily plus PRN clonidine
0.1 mg twice daily PRN SBP >160. Then with ongoing HTN at [facility] they added nifedipine XL 60 mg twice daily and chlorthalidone 12.5 mg daily plus they changed losartan to valsartan. Nephrology saw the patient at [facility] due to hyponatremia and
chlorthalidone was stopped. When patient was d/c'd from [facility] on 05/20/2024 she was supposed to be taking clonidine 0.1 mg daily (no longer just PRN), hydralazine 10 mg TID, Toprol XL 50 mg twice daily, valsartan 360 mg daily (which is 4.5 tablets of
an 80 mg tablet) and nifedipine 60 mg daily
-Currently ordered hydralazine 25 mg TID
-Currently ordered nifedipine XL 90 mg daily
-Currently ordered clonidine 0.1 mg daily
-Toprol XL as above
-Cont aspirin 81 mg daily for h/o CVA 04/2024.
HPI: Patient came to ER yesterday with generalized weakness and was noted to be hypoxic without lab abnormalities leading to admission, cardiology is now consulted for possible acute HF. Patient was just admitted to 05/01/2024 until 05/05/2024
in the setting of hypertensive emergency and MRI of the brain at that point found an acute/subacute left lentiform nucleus CVA. It was discovered at that time that the patient had stopped taking her outpatient doses of metoprolol and losartan/HCTZ
about a week prior to admission because she felt they were making her dizzy and then the family noticed ongoing speech changes and she was brought to the ER. Patient had echo that admission as noted above on 05/02/2024 that showed a preserved EF
with only mild MR. The patient was noted to be markedly hypertensive during that admission was managed as HTN emergency. Patient was started on Toprol-XL 50 mg twice daily, losartan 100 mg daily, amlodipine 5 mg daily plus clonidine 0.1 mg twice
daily PRN SBP >160. Patient was also placed on a regimen of aspirin and Plavix for 21 days and then aspirin daily thereafter. Patient was sent to [facility] and was there from 05/05/2024 until 05/20/2024. Patient was then discharged to home with
her 2 sons. Patient came back to ER on 05/31/2024 with increasing weakness and fatigue and her initial Hgb was low at 8.9 and she was heme positive on PRIYANKA.
Progress Note - Mushroom Cultivator
Subjective
Date of Service: June 02, 2024
She is hungry, no lightheadedness, no chest pain
Objective
Labs:
06/02/24 06:34
06/02/24 06:34
Labs
Hgb 9.5 g/dL (12.0-16.0) L 06/02/24 06:34
Hct 27.1 % (37.0-47.0) L 06/02/24 06:34
Plt Count 434 10^3/uL (130-400) H 06/02/24 06:34
Sodium 127 mmol/L (135-145) L 06/02/24 06:34
Potassium 3.8 mmol/L (3.5-5.1) 06/02/24 06:34
BUN 23 mg/dl (7-17) H 06/02/24 06:34
Creatinine 1.3 mg/dL (0.6-1.0) H 06/02/24 06:34
Glucose 82 mg/dl (70-99) 06/02/24 06:34
Vital Signs and I&O:
Vital Signs
Temp Pulse Resp BP Pulse Ox
97.5 F 74 18 117/49 97
06/02/24 14:36 06/02/24 14:36 06/02/24 14:36 06/02/24 14:36 06/02/24 14:36
Vital Signs
Temp Pulse Resp BP Pulse Ox
97.5 F 74 18 117/49 97
06/02/24 14:36 06/02/24 14:36 06/02/24 14:36 06/02/24 14:36 06/02/24 14:36
Intake & Output
05/31/24 06/01/24 06/02/24 06/03/24
06:59 06:59 06:59 06:59
Intake Total 480 / 480
Output Total 1800 / 1800 350 / 350
Balance -1800 / -1800 130 / 130
Physical Exam
Physical Exam
GEN: NAD. AAOx3
HEENT: MMM
LUNGS: 2 L NC. No audible wheeze
CV: SR on tele.
ABD: ND
EXT: No edema B/L
NEURO: Gross non-focal
SKIN: No rash
[2024-06-02] MEDS: LIPITOR 40 MG PO (21:06)
[2024-06-02 23:00] VITALS: BP 121/40
[2024-06-03 06:00] VITALS: BMI 20.9
[2024-06-03 07:00] VITALS: BP 165/56
[2024-06-03 08:22] LABS: % Basophils 0.6 % (0-2); % Eosinophils 4.3 % (0-6); % Immature Granulocytes 0.9 % (0-0.5); % Lymphocytes 12.6 % (20.5-51.1); % Monocytes 8.6 % (1.7-9.3); Absolute Basophils 0.1 10^3/uL (0-0.2); Absolute Eosinophils 0.4 10^3/uL (0-0.7); Absolute Immature Granulocytes 0.1 10^3/uL (0-0.05); Absolute Lymphocytes 1.2 10^3/uL (1.2-3.4); Absolute Monocytes 0.8 10^3/uL (0.1-0.6); Hematocrit 28.1 % (37.0-47.0); Hemoglobin 9.7 g/dL (12.0-16.0); Mean Corp Hgb Conc. 34.5 g/dL (33.0-37.0); Mean Corpuscular Volume 89.8 fL (81.0-99.0); Mean Platelet Volume 9.1 fL (7.4-10.4); Nucleated Red Blood Cells % 0 %; Platelet Count 435 10^3/uL (130-400); Red Blood Cell Count 3.13 10^6/uL (4.20-5.40); Red Cell Dist. Width 14.5 % (11.5-14.5); White Blood Cell Count 9.6 10^3/uL (4.8-10.8)
[2024-06-03 09:03] LABS: Blood Urea Nitrogen 30 mg/dl (7-17); Calcium 9.1 mg/dl (8.4-10.2); Carbon Dioxide 26 mmol/L (22-30); Chloride 93 mmol/L (98-107); Estimated Creatinine Clearance 23 ml/min; Glucose 83 mg/dl (70-99); Magnesium 1.5 mg/dl (1.6-2.3); Potassium 3.9 mmol/L (3.5-5.1); Sodium 128 mmol/L (135-145); eGFR 40.55
--- NOTE | 2024-06-03 09:28 | W.PN.GI.CBS2 ---
Addendum entered and electronically signed by Katja Dumont MD 06/03/24 13:39:
I saw and examined the patient.
The HEALTHCARE TECHNICIAN or PA's note was reviewed and I agree with the note.
Comment: 83 yo F history of CVA only on ASA (previously on plavix and stopped) here with dysphagia, dark stool, non bloody emesis and drop in Hb from baseline. Also with SOB 2/2 acute HF being diuresed by cards and followed by nephro for hypoNa
initially thought 2/2 HCTZ.
Plan was EGD today but Na <130.
Hb stable during admission, no BM x3 days, tolerating regular diet.
Speech path has seen patient.
Plan EGD once Na >130 pending clinical status d/w pt r/a/b inc not limited to bleeding, infection, perforation pt agreeable.
We may need to do over weekend because I am not sure how long how window will be once the Na is >130 after Samsca (since chronically low and < 130).
From GI POV ok to continue ASA especially with recent CVA sent msg to cardiology.
Original Note:
Today's Communication / Plan
-
-EGD will be planned with NA level>130
-Continue oral taking until midnight
Assessment / Plan
-
Assessment:
Impression: Ms Reece is a 83 year old pleasant lady who presented to ER after having a few episodes of non-bloody vomiting, feeling weak, dizziness and shortness of breath. The admission, the patient`s lab results were found
significant for leucocytosis to 13.0, a low level of Hgb to 8.9, Hyponatremia to 119 and hem positive stool on rectal exam. The patient reported having likely acid-reflux symptoms, dysphagia and passing dark colored stools since her recent
admission due stroke in the middle of April 2024. The patient was started on Plavix and aspirin on her previous hospitalization due to CVA, but the patient has been only on aspirin after recent discharge and denied taking other anti-coagulants
or NSAI. The patient was started on PPI drip on admission due to suspicious of upper GI bleeding and it was switched to PPI IV BID. Her recent lab showed her hemoglobin level 9.7 L which is likely stable since admission. There is no signs of
active GI bleeding.
Problem List
Possible Acute/Chronic GI bleeding likely from Upper GI
CVA complicated with dysphagia
Shortness of breath
Leukocytosis
Hx of hyponatremia
Chronic Kidney Disease
HTN
HLD
#Possible Acute/Chronic GI bleeding likely from Upper GI
-Continue PPI IV BID
-EGD is planning with NA level at least 130- 128 this am on 04/02/25
-Abd CT with oral contrast for mid abdo pain, after speech therapy involvement due dysphagia-hold for now
-Appreciate for ST assessment- F Video Fluoro Swallow Exam: No upper airway penetration or aspiration is identified.-
-Hold on aspirin for now until EGD done
-Avoid NSAID medication
-HGB 9.7 L on 06/03/24
-Consider RBC transfusion if Hgb<7 gr
-Check Hgb series daily
#CVA complicated with dysphagia
-Hold on aspirin for now
-PT/OT can be considered
#Shortness of breath
-Chest Xray:moderate to severe pulmonary edema
-Started on furosemide by nephro recc and seems improved
-Elevated BNP- Cardio on board
-Precautions to prevent aspiration PNA
-Elevate head of the bed
# Hyponatremia
-Na at admission 119 improved to 128
-On fluid restriction
-Given 1 dose of samsca 7.5mg
-Nephrology on board
#Chronic Kidney Disease
-Cr 1.3 likely at her baseline (1.1)
Thanks Dr Dumont for having me involved in this patient`s care. We will follow up this patient as GI team.
Subjective
Subjective
Date of Service: June 03, 2024
Patient seems comfortable, awake, alert and oriented Does not remember our previous conversations. She is not sure if she passed any gasses since yesterday. No bowel movement since admission. Denies abdominal pain or discomfort.
Objective
Data Reviewed
Laboratory Data:
Laboratory Results
06/03/24 07:46
06/03/24 07:46
Laboratory Results
Magnesium 1.5 mg/dl (1.6-2.3) L 06/03/24 07:46
Total Bilirubin 0.7 mg/dl (0.2-1.3) 05/31/24 10:36
AST 29 U/L (14-36) 05/31/24 10:36
ALT 33 U/L (0-35) 05/31/24 10:36
Alkaline Phosphatase 97 U/L (38-126) 05/31/24 10:36
Lipase 353 U/L (23-300) H 05/31/24 10:36
Vital Signs and I&O:
Vital Signs
Temp Pulse Resp BP Pulse Ox
97.9 F 68 20 165/56 94
06/03/24 07:00 06/03/24 07:00 06/03/24 07:00 06/03/24 07:00 06/03/24 07:00
I&O
06/02/24 06/03/24 06/04/24
06:59 06:59 06:59
Intake Total 480 / 480 480 / 480
Output Total 350 / 350
Balance 130 / 130 480 / 480
Physical Exam
Physical Exam
HEENT: Anicteric and Moist mucous membranes
Cardiology: Normal Sinus Rhythm
Pulmonary: Clear
GI: Soft, Non Distended, Non Tender and Other (No pain on PE )
Extremities: No Edema
Neuro: Non Focal
[2024-06-03] MEDS: PROTONIX IV 40 MG IV ×2 (10:01→20:11)
[2024-06-03] MEDS: NSS (PRESERVATIVE FREE) 10 ML IV ×2 (10:02→20:11)
[2024-06-03] MEDS: LASIX 40 MG IV (10:03)
[2024-06-03] MEDS: APRESOLINE 25 MG PO ×3 (10:04→20:19)
[2024-06-03] MEDS: DITROPAN 5 MG PO ×2 (10:04→20:11)
[2024-06-03] MEDS: CATAPRES 0.1 MG PO (10:04)
[2024-06-03] MEDS: TOPROL XL 50 MG PO (10:04)
--- NOTE | 2024-06-03 10:23 | W.PN.CARDCBS ---
Addendum entered and electronically signed by Aidan Finley MD 06/03/24 17:45:
83-year-old woman admitted with hypertensive emergency and stroke April 2024, readmitted May 31 with HFpEF and hyponatremia, anemia and MORRIS. Plan is for EGD but this has been postponed related to hyponatremia.
PMH: Hyponatremia, CVA April 2024, hypertension atorvastatin, clonidine 0.1 daily, metoprolol ER 50 twice daily, nifedipine ER 90 mg a day, Ditropan, furosemide 40 mg IV daily, pantoprazole 40 IV twice daily, hydralazine 25 3 times daily, aspirin
81 mg a day, Samsca x 1
124/47, pulse 65, respiratory 17, weight is 48.6, frail, pleasant, very [place]ian, lungs are clear, regular rate and rhythm, no obvious murmurs JVD okay, not much edema, abdomen benign
Hemoglobin 9.7, sodium is 128, potassium is 3.9, CO2 is 26, BUN and creatinine are 31.3, proBNP was 11,900
ECG sinus bradycardia rate 50
Echo April 2024: EF 65-70% mild LVH, MAC, mild MR, Dilated left atrium, mild AR
Impression:
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
Recent CVA/hypertensive emergency
Hyponatremia
Hypertension
Mild MORRIS, creatinine currently stable at 1.3
Plan:
Overall she seems stable from a cardiac standpoint
Volume, BP management per nephrology
Okay for EGD from cardiac standpoint, awaiting improvement in hyponatremia
She is bradycardic, will reduce metoprolol ER to 25 mg twice daily
We will arrange for outpatient cardiac follow-up
Will sign off, please call if questions
Original Note:
Today's Communication / Plan
-
Continue IV lasix
Nephrology giving another dose of Samsca today
For eventual EGD once Na above 130
OK to continue aspirin per GI.
Impression / Plan
-
PCP: Dr. Michael Wilson
Resident Services Coordinator: None prior to admission
Impression:
Admitted with SOB and abnormal labs 05/31/24
Recent admission for HTN emergency and CVA 05/01/24 until 05/05/24
Acute hypoxic respiratory failure
Hyponatremia
MORRIS
Anemia with heme positive stools 05/31/24
Acute HFpEF
Small to moderate B/L pleural effusions
s/p acute/subacute left lentiform nucleus CVA 05/01/24
Severe leukomalacia on MRI brain 05/01/24
HTN
Echo 05/02/2024: EF 65%, mild MR
Plan:
-Presented with SOB and abnormal labs. Admitted with hyponatremia, anemia, MORRIS, and acute HFpEF.
-Continue IV lasix 40mg daily. Creat stable overnight at 1.3.
-Weight down to 107 lbs on 06/03. Down 3lbs overnight, down 16 lbs this admission if accurate.
-Echo 05/02 with EF 65% as noted above.
-Continue Toprol, nifedipine, and hydralazine.
-Valsartan remains on hold due to MORRIS on admission. Would resume as able.
-Consider SGLT2 inhibitor, but patient has had many medication changes in the last few months so might want to ensure stability prior to introducing more meds. See below.
-Continue atorvastatin 40mg daily.
-Was on aspirin 81mg daily as OP due to recent CVA. Had been on hold due to anemia/GIB. Hgb 9.7. Per GI, ok to continue, so will resume 06/03.
-Plan is for EGD once Na is above 130. Na 128 on 06/03. Nephrology following and plan is for another dose of Samsca today.
-Records from initial admission and her [facility] stay reviewed in detail by Ele Kim, very confusing and multiple medication changes. D/C'd from to [facility] on a regimen of Toprol-XL 50 mg BID, losartan 100 mg daily, amlodipine 5 mg daily plus PRN
clonidine 0.1 mg twice daily PRN SBP >160. Then with ongoing HTN at [facility] they added nifedipine XL 60 mg twice daily and chlorthalidone 12.5 mg daily plus they changed losartan to valsartan. Nephrology saw the patient at [facility] due to hyponatremia
and chlorthalidone was stopped. When patient was d/c'd from [facility] on 05/20/2024 she was supposed to be taking clonidine 0.1 mg daily (no longer just PRN), hydralazine 10 mg TID, Toprol XL 50 mg twice daily, valsartan 360 mg daily (which is 4.5
tablets of an 80 mg tablet) and nifedipine 60 mg daily.
HPI: Patient came to ER yesterday with generalized weakness and was noted to be hypoxic without lab abnormalities leading to admission, cardiology is now consulted for possible acute HF. Patient was just admitted to 05/01/2024 until 05/05/2024
in the setting of hypertensive emergency and MRI of the brain at that point found an acute/subacute left lentiform nucleus CVA. It was discovered at that time that the patient had stopped taking her outpatient doses of metoprolol and losartan/HCTZ
about a week prior to admission because she felt they were making her dizzy and then the family noticed ongoing speech changes and she was brought to the ER. Patient had echo that admission as noted above on 05/02/2024 that showed a preserved EF
with only mild MR. The patient was noted to be markedly hypertensive during that admission was managed as HTN emergency. Patient was started on Toprol-XL 50 mg twice daily, losartan 100 mg daily, amlodipine 5 mg daily plus clonidine 0.1 mg twice
daily PRN SBP >160. Patient was also placed on a regimen of aspirin and Plavix for 21 days and then aspirin daily thereafter. Patient was sent to [facility] and was there from 05/05/2024 until 05/20/2024. Patient was then discharged to home with
her 2 sons. Patient came back to ER on 05/31/2024 with increasing weakness and fatigue and her initial Hgb was low at 8.9 and she was heme positive on PRIYANKA.
Progress Note - Resident Services Coordinator
Subjective
Date of Service: June 03, 2024
Feeling well today. No current complaint.s
Objective
Labs:
06/03/24 07:46
06/03/24 07:46
Labs
Hgb 9.7 g/dL (12.0-16.0) L 06/03/24 07:46
Hct 28.1 % (37.0-47.0) L 06/03/24 07:46
Plt Count 435 10^3/uL (130-400) H 06/03/24 07:46
Sodium 128 mmol/L (135-145) L 06/03/24 07:46
Potassium 3.9 mmol/L (3.5-5.1) 06/03/24 07:46
BUN 30 mg/dl (7-17) H 06/03/24 07:46
Creatinine 1.3 mg/dL (0.6-1.0) H 06/03/24 07:46
Glucose 83 mg/dl (70-99) 06/03/24 07:46
Vital Signs and I&O:
Vital Signs
Temp Pulse Resp BP Pulse Ox
97.9 F 68 20 165/56 94
06/03/24 07:00 06/03/24 10:03 06/03/24 07:00 06/03/24 10:03 06/03/24 07:00
Vital Signs
Temp Pulse Resp BP Pulse Ox
97.9 F 68 20 165/56 94
06/03/24 07:00 06/03/24 10:03 06/03/24 07:00 06/03/24 10:03 06/03/24 07:00
Intake & Output
06/01/24 06/02/24 06/03/24 06/04/24
06:59 06:59 06:59 06:59
Intake Total 480 / 480 480 / 480
Output Total 1800 / 1800 350 / 350
Balance -1800 / -1800 130 / 130 480 / 480
Physical Exam
Physical Exam
GEN: No distress, awake, alert, oriented x3
HEENT: supple, anicteric, mmm
LUNGS: CTA b/l, no wheezes/rales
CV: Reg, S1/S2, no murmur
EXT: No clubbing or cyanosis, trace edema b/l LE
NEURO: Gross non-focal
SKIN: Warm, dry, no rash
--- NOTE | 2024-06-03 12:09 | W.PN.NEPH.PH ---
Today's Communication / Plan
-
Samsca 15 mg today
Assessment/Plan
-
83-year-old female with past medical history of essential hypertension, overactive bladder, hyperlipidemia who presented to ER May 31, 2024 with abdominal pain and nausea vomiting and dark stools found to have a drop in hemoglobin and
hyponatremia 119.
The previously seen with a hemoglobin of 125 on rehab for acute stroke. At that time she was placed on Plavix and aspirin.
impression.
Hyponatremia 119. Discharged April from [facility] with a sodium of 127 thought to be from chlorthalidone.
hypertensive emergency status post CVA April 2024 discharged on Plavix and aspirin.
overactive bladder
plan.
Fluid restrict at 32 ounces to continue,currently NPO for EGD tomorrow/canceled today because anesthesia wants serum sodium at 130
Sodium increased from 121-127 following Samsca administration of 7.5 mg on 06/01/2024
Congestive heart failure noted on personally reviewed chest x-ray, maintaining 40 mg IV daily of Lasix
PPI with GI bleed.
Checked urine indices. Urine osmolality 304
Monitor urine output closely given bladder instability need to assess whether or not there is a urinary retention component
I will dose Samsca again today at 15 mg expect sodium to be at 130 for EGD tomorrow
-
-
Date of Service: June 03, 2024
CC / HPI / ROS
-
Chief Complaint:
Hyponatremia
History of Present Illness:
Serum sodium level up to 127 following Samsca administration on 06/01/2024
Now on 40 mg IV tdaily of Lasix for congestive heart failure decompensation
Hemodynamically stable
Review of Systems:
Nonoliguric
on oxygen
weights down
Labs
-
Labs:
WBC 9.6 10^3/uL (4.8-10.8) 06/03/24 07:46
RBC 3.13 10^6/uL (4.20-5.40) L 06/03/24 07:46
Hgb 9.7 g/dL (12.0-16.0) L 06/03/24 07:46
Hct 28.1 % (37.0-47.0) L 06/03/24 07:46
Plt Count 435 10^3/uL (130-400) H 06/03/24 07:46
Sodium 128 mmol/L (135-145) L 06/03/24 07:46
Potassium 3.9 mmol/L (3.5-5.1) 06/03/24 07:46
Chloride 93 mmol/L (98-107) L 06/03/24 07:46
Carbon Dioxide 26 mmol/L (22-30) 06/03/24 07:46
BUN 30 mg/dl (7-17) H 06/03/24 07:46
Creatinine 1.3 mg/dL (0.6-1.0) H 06/03/24 07:46
eGFR 40.55 06/03/24 07:46
Glucose 83 mg/dl (70-99) 06/03/24 07:46
Calcium 9.1 mg/dl (8.4-10.2) 06/03/24 07:46
Wvq-L-Gmqxkancvhn Pept 46489 pg/ml 05/31/24 10:36
Albumin 3.8 g/dl (3.5-5.0) 05/31/24 10:36
Physical Exam
-
Vital Signs:
Vital Signs
Temp Pulse Resp BP Pulse Ox
97.9 F 68 20 165/56 94
06/03/24 07:00 06/03/24 10:03 06/03/24 07:00 06/03/24 10:03 06/03/24 07:00
Cardiovascular:: Regular rate and rhythm
Respiratory:: Bilateral: Coarse
Lung Excursion:: Normal
Abdomen:: Nontender
Extremity Edema:: +1: Bilateral: (trace)
Winters Catheter: No
[2024-06-03] MEDS: PROCARDIA XL (EXTENDED RELEASE) 90 MG PO (13:25)
[2024-06-03] MEDS: SAMSCA 15 MG PO (13:26)
[2024-06-03] MEDS: MIRALAX 17 GRAMS PO (13:26)
--- NOTE | 2024-06-03 14:32 | W.PN.HOSP.TC ---
Today's Communication/Plan
-
See plan
NPO after midnight for possible EGD tomorrow
Assessment / Plan
Assessment / Plan
Physical Exam
General: Not in acute distress
HEENT: Normocephalic, Moist mucous membranes and Atraumatic
Respiratory: Clear to Auscultation Bilaterally
Cardiac: S1/S2 and Regular Rhythm
GI: Soft, Non Tender, Non Distended and Normal Bowel Sounds
Musculoskeletal: No Cyanosis and No Edema
Skin: Rash and Other (bruising on arms, backs, abdomen)
Neuro: AAO x 3 and Nonfocal/grossly intact
Psych: Calm
Assessment/Plan
83-year-old female past medical history of hyponatremia, CVA, CAD, hypertension, hyperlipidemia, anemia, overactive bladder, chronic kidney disease, presented with generalized fatigue and overall weakness, dark stools and shortness of breath with
sore throat and cough for a few days prior to presentation. Vomiting once on the day before presentation. Persistently hyponatremic at [facility] despite discontinuation of chlorthalidone. Patient received IV fluids and Samsca before discharge on
05/20. Patient was hypoxemic at the time of admission, requiring 3 L oxygen. Appeared euvolemic. Initial labs showed sodium 119 from 127. Urine sodium of 38, osmolality of 293 on 05/17. Leukocytosis of 13. Hemoglobin of 8.9 from 12.7 only a few
weeks ago prior to presentation. MCV of 88. Rectal exam reveals brown heme positive stool. Concern for worsening hyponatremia despite discontinuation of chlorthalidone, addition of IV fluids and dose of Samsca administration before 05/20. Prior
urine studies previously suggest poor solute intake rather than SIADH.
Hemoglobin is dropped significantly with dark stools recently. Hold Aspirin. Clear liquid diet. N.p.o. past midnight. Check iron studies, B12 and folate. Protonix drip started. GI consulted.
Patient could be having upper respiratory infection versus pneumonia to explain hypoxemia. Check COVID and influenza. Check chest x-ray.
#Hyponatremia likely hypovolemic/acute kidney injury
-continue PO fluid restriction 32 ounces daily
-IV Lasix
-BMP in am
-nephrology consulted
-Samsca
#Elevated BNP
#Moderate to severe pulmonary edema pattern with small to moderate bilateral pleural effusions
-IV Lasix
-I&O
-daily weight
-PO fluid restriction 32 ounces daily
-Cardiology onboard
# Symptomatic anemia from GI bleed
# Presentation with dysphagia, dark stool, non bloody emesis and drop in Hgb from baseline
-Heme positive brown stool
-Hemoglobin 8.9
-Continue pantoprazole 40 mg IV twice daily.
-GI consulted who discussed with anesthesiologist, for EGD once sodium is about 130 (hopefullyover the weekend).
-N.p.o. after midnight for possible EGD tomorrow.
-Okay to continue Aspirin 81 mg daily as per GI
# Leukocytosis likely stress reaction - RESOLVED
-WBCs 13.0
-Chest x-ray with moderate to severe pulmonary edema pattern with small to moderate bilateral pleural effusions.
-UA not suggestive of infection
-COVID and Flu negative
#Acute hypoxic respiratory failure - RESOLVED - from pulmonary edema
-Continue Lasix
-Wean as tolerated
# Generalized bruising unclear cause
- Continue to monitor
#Hypertension
#Orthostatic Hypotension
-Hydralazine (reduced to 25 mg TID from 100 mg TID due to orthostatic hypotension), metoprolol, nifedipine, continued
-Hold valsartan due to MORRIS
# History of CVA
-Continue Aspirin
#Hyperlipidemia
- cont Lipitor 40mg
# Overactive bladder
-cont oxybutynin 10 mg bid
DVT Prophylaxis: SCDs
Code Status: Full code
Anticipated Discharge: > 48 hours
Subjective/Interval History
-
Date of Service: June 03, 2024
Patient was seen and examined. She reported feeling even better than the day before, denied any new symptoms or complaints.
Objective Data
-
Labs:
Laboratory Results
06/03/24
07:46
WBC 9.6
Hgb 9.7 L
Hct 28.1 L
Plt Count 435 H
Sodium 128 L
Potassium 3.9
Chloride 93 L
Carbon Dioxide 26
BUN 30 H
Creatinine 1.3 H
Glucose 83
Calcium 9.1
Vital Signs:
Vital Signs
Temp Pulse Resp BP Pulse Ox
97.9 F 67 20 134/104 94
06/03/24 07:00 06/03/24 13:25 06/03/24 07:00 06/03/24 13:25 06/03/24 07:00
I&O
06/02/24 06/03/24 06/04/24
06:59 06:59 06:59
Intake Total 480 / 480 480 / 480 480 / 480
Output Total 350 / 350
Balance 130 / 130 480 / 480 480 / 480
[2024-06-03 15:00] VITALS: BP 124/47
[2024-06-03 15:11] VITALS: BP 149/55; PULSE 61; O2SAT 96
--- NOTE | 2024-06-03 15:30 | PN.CDI ---
CDI
- -
CDI:
Physician Documentation Request
Admit Date: 05/31/24 14:37
Dear Doctor Marry,
Patient admitted with anemia.
06/03 Cardiology PN: 'Acute HFpEF. Small to moderate B/L pleural effusions...Continue IV lasix 40mg daily....Weight down to 107 lbs on 06/03. Down 3lbs overnight, down 16 lbs this admission if accurate. -Echo 05/02 with EF 65% as noted above.'
06/03 Hospitalist PN: 'Elevated BNP #Moderate to severe pulmonary edema pattern with small to moderate bilateral pleural effusions -IV Lasix'
Please clarify the following:
____ - Acute HFpEF was present on admission and is now resolved.
____ - Acute HFpEF was present on admission and is still being monitored, evaluated or treated
____ - Acute HFpEF was ruled out
____ - Acute HFpEF is still a likely, suspected, probable diagnosis
____ - Other
Use of terms such as suspected, likely, concern for, or probable (associated with a specific diagnosis that is being evaluated, monitored, or treated as if it exists) are acceptable and can be coded in the inpatient setting, when documented at the
time of discharge.
Thank you,
Erma Kinney RN, BSN
CDI Specialist
Available via [place] text
Please use your independent medical judgment in providing your response.
--- NOTE | 2024-06-03 16:27 | CM ---
Patient for EGD tomorrow.
PT recommending skilled rehab.
Spoke with son Johan this morning, agreeable to skilled rehab in [facility].
Referrals sent via [facility].
Plan: skilled rehab once medically stable, will need [employer] auth.
[2024-06-03] MEDS: LOW STRENGTH ASPIRIN 81 MG PO (16:29)
[2024-06-03] MEDS: LIPITOR 40 MG PO (20:12)
[2024-06-03] MEDS: TOPROL XL PO (20:18)
[2024-06-03 23:00] VITALS: BP 131/40
[2024-06-04 04:10] VITALS: BMI 21.1
[2024-06-04 06:45] LABS: % Basophils 1.1 % (0-2); % Eosinophils 5.3 % (0-6); % Lymphocytes 17.9 % (20.5-51.1); % Monocytes 9.3 % (1.7-9.3); % Neutrophils 65.4 % (42.2-75.2); Absolute Basophils 0.1 10^3/uL (0-0.2); Absolute Eosinophils 0.4 10^3/uL (0-0.7); Absolute Immature Granulocytes 0.1 10^3/uL (0-0.05); Absolute Lymphocytes 1.5 10^3/uL (1.2-3.4); Absolute Monocytes 0.8 10^3/uL (0.1-0.6); Absolute Neutrophils 5.4 10^3/uL (1.4-6.5); Hematocrit 29.1 % (37.0-47.0); Mean Corp Hgb Conc. 34.4 g/dL (33.0-37.0); Mean Corpuscular Volume 90.1 fL (81.0-99.0); Nucleated Red Blood Cells % 0 %; Platelet Count 476 10^3/uL (130-400); Red Blood Cell Count 3.23 10^6/uL (4.20-5.40); Red Cell Dist. Width 14.4 % (11.5-14.5); White Blood Cell Count 8.3 10^3/uL (4.8-10.8)
[2024-06-04 07:00] VITALS: BP 191/55
[2024-06-04 07:35] LABS: Blood Urea Nitrogen 36 mg/dl (7-17); Calcium 9.3 mg/dl (8.4-10.2); Carbon Dioxide 31 mmol/L (22-30); Chloride 95 mmol/L (98-107); Estimated Creatinine Clearance 20 ml/min; Glucose 83 mg/dl (70-99); Magnesium 1.5 mg/dl (1.6-2.3); Potassium 4.3 mmol/L (3.5-5.1); Sodium 131 mmol/L (135-145); eGFR 34.15
[2024-06-04] MEDS: PROTONIX IV IV (09:21)
[2024-06-04] MEDS: NSS (PRESERVATIVE FREE) IV ×2 (09:22→19:55)
[2024-06-04] MEDS: APRESOLINE 25 MG PO ×3 (10:01→19:56)
[2024-06-04] MEDS: CATAPRES 0.1 MG PO (10:01)
[2024-06-04] MEDS: TOPROL XL 25 MG PO (10:01)
[2024-06-04] MEDS: PROTONIX 40 MG PO (10:01)
[2024-06-04] MEDS: LASIX 40 MG IV (10:02)
[2024-06-04] MEDS: LOW STRENGTH ASPIRIN 81 MG PO (10:02)
[2024-06-04] MEDS: DITROPAN 5 MG PO ×2 (10:02→19:55)
[2024-06-04 11:00] VITALS: BP 132/38
[2024-06-04] MEDS: PROCARDIA XL (EXTENDED RELEASE) 90 MG PO (12:05)
--- NOTE | 2024-06-04 12:25 | W.PN.NEPH.PH ---
Today's Communication / Plan
-
Continue fluid restriction. Increase protein in her diet
Assessment/Plan
-
83-year-old female with past medical history of essential hypertension, overactive bladder, hyperlipidemia who presented to ER May 31, 2024 with abdominal pain and nausea vomiting and dark stools found to have a drop in hemoglobin and
hyponatremia 119.
The previously seen with a hemoglobin of 125 on rehab for acute stroke. At that time she was placed on Plavix and aspirin.
impression.
Hyponatremia 119. Discharged April from [facility] with a sodium of 127 thought to be from chlorthalidone.
hypertensive emergency status post CVA April 2024 discharged on Plavix and aspirin.
overactive bladder
plan.
Fluid restrict at 32 ounces to continue,currently NPO for EGD tomorrow/canceled today because anesthesia wants serum sodium at 130
Sodium increased from 121-127 following Samsca administration of 7.5 mg on 06/01/2024
Congestive heart failure noted on personally reviewed chest x-ray, maintaining 40 mg IV daily of Lasix
PPI with GI bleed.
Checked urine indices. Urine osmolality 304
Sodium 131 responded to Samsca.
Status post EGD no acute findings.
-
-
Date of Service: June 04, 2024
CC / HPI / ROS
-
Chief Complaint:
Hyponatremia
History of Present Illness:
Serum sodium level up following Samsca administration on 06/01/2024 and June 03
Now on 40 mg IV tdaily of Lasix for congestive heart failure decompensation
Hemodynamically stable
Review of Systems:
Nonoliguric
weights down
Labs
-
Labs:
WBC 8.3 10^3/uL (4.8-10.8) 06/04/24 06:15
RBC 3.23 10^6/uL (4.20-5.40) L 06/04/24 06:15
Hgb 10.0 g/dL (12.0-16.0) L 06/04/24 06:15
Hct 29.1 % (37.0-47.0) L 06/04/24 06:15
Plt Count 476 10^3/uL (130-400) H 06/04/24 06:15
Sodium 131 mmol/L (135-145) L 06/04/24 06:15
Potassium 4.3 mmol/L (3.5-5.1) 06/04/24 06:15
Chloride 95 mmol/L (98-107) L 06/04/24 06:15
Carbon Dioxide 31 mmol/L (22-30) H 06/04/24 06:15
BUN 36 mg/dl (7-17) H 06/04/24 06:15
Creatinine 1.5 mg/dL (0.6-1.0) H 06/04/24 06:15
eGFR 34.15 06/04/24 06:15
Glucose 83 mg/dl (70-99) 06/04/24 06:15
Calcium 9.3 mg/dl (8.4-10.2) 06/04/24 06:15
Mby-D-Pegtlarethh Pept 65428 pg/ml 05/31/24 10:36
Albumin 3.8 g/dl (3.5-5.0) 05/31/24 10:36
Physical Exam
-
Vital Signs:
Vital Signs
Temp Pulse Resp BP Pulse Ox
97.5 F 62 18 191/55 97
06/04/24 07:00 06/04/24 07:00 06/04/24 07:00 06/04/24 10:01 06/04/24 07:00
Cardiovascular:: Regular rate and rhythm
Respiratory:: Bilateral: Coarse
Lung Excursion:: Normal
Abdomen:: Nontender
Extremity Edema:: +1: Bilateral: (trace)
Winters Catheter: No
--- NOTE | 2024-06-04 15:00 | W.PN.HOSP.TC ---
Today's Communication/Plan
-
EGD unremarkable
Continue PO FR
Lasix
Bilateral Hip X-Rays
Assessment / Plan
Assessment / Plan
Physical Exam
General: Not in acute distress
HEENT: Normocephalic, Moist mucous membranes and Atraumatic
Respiratory: Clear to Auscultation Bilaterally
Cardiac: S1/S2 and Regular Rhythm
GI: Soft, Non Tender, Non Distended and Normal Bowel Sounds
Musculoskeletal: No Cyanosis and No Edema.
Skin: Rash and Other (bruising on arms, backs, abdomen)
Neuro: AAO x 3 and Nonfocal/grossly intact
Psych: Calm
Assessment/Plan
83-year-old female past medical history of hyponatremia, CVA, CAD, hypertension, hyperlipidemia, anemia, overactive bladder, chronic kidney disease, presented with generalized fatigue and overall weakness, dark stools and shortness of breath with
sore throat and cough for a few days prior to presentation. Vomiting once on the day before presentation. Persistently hyponatremic at [place] [facility] despite discontinuation of chlorthalidone. Patient received IV fluids and Samsca before discharge on
05/20. Patient was hypoxemic at the time of admission, requiring 3 L oxygen. Appeared euvolemic. Initial labs showed sodium 119 from 127. Urine sodium of 38, osmolality of 293 on 05/17. Leukocytosis of 13. Hemoglobin of 8.9 from 12.7 only a few
weeks ago prior to presentation. MCV of 88. Rectal exam reveals brown heme positive stool. Concern for worsening hyponatremia despite discontinuation of chlorthalidone, addition of IV fluids and dose of Samsca administration before 05/20. Prior
urine studies previously suggest poor solute intake rather than SIADH.
Hemoglobin is dropped significantly with dark stools recently. Hold Aspirin. Clear liquid diet. N.p.o. past midnight. Check iron studies, B12 and folate. Protonix drip started. GI consulted.
Patient could be having upper respiratory infection versus pneumonia to explain hypoxemia. Check COVID and influenza. Check chest x-ray.
#Hyponatremia likely hypovolemic/acute kidney injury
-continue PO fluid restriction 32 ounces daily
-IV Lasix
-BMP in am
-nephrology consulted
-Samsca has been given
#Bilateral Hip Pain
-Check bilateral hip x-rays
#Acute HFpEF was present on admission and is now resolved
#Elevated BNP
#Moderate to severe pulmonary edema pattern with small to moderate bilateral pleural effusions
-IV Lasix
-I&O
-daily weight
-PO fluid restriction 32 ounces daily
-Cardiology onboard
#Symptomatic anemia from GI bleed
#Presentation with dysphagia, dark stool, non bloody emesis and drop in Hgb from baseline
#Small hiatal hernia.
#Erythematous mucosa in the stomach - biopsied
-EGD performed on 06/04/24, biopsies were taken with a cold forceps for evaluation of eosinophilic esophagitis.
-Heme positive brown stool
-Okay to continue Aspirin 81 mg daily as per GI
-Resume previous diet
-Continue Protonix 40 mg P.O. x 8 weeks but then stop.
-Follow-up on pathology results.
-GI will hold off on colonoscopy but if patient has ZULEMA or persistent bleeding recommend pursuing recommend outpatient.
-Patient previously followed at [place] for colonoscopy last one a few years ago per her report unclear
#Anemia -- suspected to be anemia of chronic disease
#Leukocytosis likely stress reaction - RESOLVED
-WBCs 13.0
-Chest x-ray with moderate to severe pulmonary edema pattern with small to moderate bilateral pleural effusions.
-UA not suggestive of infection
-COVID and Flu negative
#Acute hypoxic respiratory failure - RESOLVED - from pulmonary edema
-Continue Lasix
-Wean as tolerated
# Generalized bruising unclear cause
- Continue to monitor
#Hypertension
#Orthostatic Hypotension
-Hydralazine (reduced to 25 mg TID from 100 mg TID due to orthostatic hypotension), metoprolol, nifedipine, continued
-Hold valsartan due to MORRIS
# History of CVA
-Continue Aspirin
#Hyperlipidemia
- cont Lipitor 40mg
# Overactive bladder
-cont oxybutynin 10 mg bid
DVT Prophylaxis: SCDs
Code Status: Full code
Anticipated Discharge: 24 - 48 hours
Subjective/Interval History
-
Date of Service: June 04, 2024
Patient was seen and examined. She reported some hip discomfort bilaterally when trying to bend her hips. But otherwise doing okay, no other complaints.
Objective Data
-
Labs:
Laboratory Results
06/04/24
06:15
WBC 8.3
Hgb 10.0 L
Hct 29.1 L
Plt Count 476 H
Sodium 131 L
Potassium 4.3
Chloride 95 L
Carbon Dioxide 31 H
BUN 36 H
Creatinine 1.5 H
Glucose 83
Calcium 9.3
Vital Signs:
Vital Signs
Temp Pulse Resp BP Pulse Ox
97.5 F 62 18 132/38 97
06/04/24 07:00 06/04/24 07:00 06/04/24 07:00 06/04/24 11:00 06/04/24 07:00
I&O
06/03/24 06/04/24 06/05/24
06:59 06:59 06:59
Intake Total 480 / 480 1440 / 1440
Balance 480 / 480 1440 / 1440
[2024-06-04] MEDS: MAGNESIUM OXIDE 500 MG PO (19:55)
[2024-06-04] MEDS: TOPROL XL PO (19:55)
[2024-06-04] MEDS: LIPITOR 40 MG PO (19:56)
[2024-06-04 23:41] VITALS: BP 147/58
[2024-06-05 06:00] VITALS: BMI 20.8
[2024-06-05 06:10] LABS: % Basophils 1.1 % (0-2); % Eosinophils 3.9 % (0-6); % Immature Granulocytes 0.9 % (0-0.5); % Lymphocytes 15.7 % (20.5-51.1); % Monocytes 10.9 % (1.7-9.3); % Neutrophils 67.5 % (42.2-75.2); Absolute Basophils 0.1 10^3/uL (0-0.2); Absolute Eosinophils 0.3 10^3/uL (0-0.7); Absolute Immature Granulocytes 0.1 10^3/uL (0-0.05); Absolute Lymphocytes 1.4 10^3/uL (1.2-3.4); Absolute Neutrophils 5.9 10^3/uL (1.4-6.5); Hematocrit 27.1 % (37.0-47.0); Hemoglobin 9.4 g/dL (12.0-16.0); Mean Corp Hgb Conc. 34.7 g/dL (33.0-37.0); Mean Corpuscular Hgb 31.2 pg (27.0-31.0); Mean Platelet Volume 9.1 fL (7.4-10.4); Nucleated Red Blood Cells % 0 %; Platelet Count 446 10^3/uL (130-400); Red Blood Cell Count 3.01 10^6/uL (4.20-5.40); Red Cell Dist. Width 14.3 % (11.5-14.5); White Blood Cell Count 8.7 10^3/uL (4.8-10.8)
[2024-06-05 06:41] LABS: Blood Urea Nitrogen 37 mg/dl (7-17); Calcium 9.3 mg/dl (8.4-10.2); Carbon Dioxide 30 mmol/L (22-30); Chloride 94 mmol/L (98-107); Estimated Creatinine Clearance 20 ml/min; Glucose 90 mg/dl (70-99); Magnesium 1.6 mg/dl (1.6-2.3); Potassium 4.6 mmol/L (3.5-5.1); Sodium 131 mmol/L (135-145); eGFR 34.15
[2024-06-05 07:00] VITALS: BP 175/55
--- NOTE | 2024-06-05 07:19 | W.PN.HOSP.TC ---
Today's Communication/Plan
-
SNF and Auth pending
Lasix stopped
Assessment / Plan
Assessment / Plan
Physical Exam
General: Not in acute distress
HEENT: Normocephalic, Moist mucous membranes and Atraumatic
Respiratory: Clear to Auscultation Bilaterally
Cardiac: S1/S2 and Regular Rhythm
GI: Soft, Non Tender, Non Distended and Normal Bowel Sounds
Musculoskeletal: No Cyanosis and No Edema.
Skin: Rash and Other (bruising on arms, backs, abdomen)
Neuro: AAO x 3 and Nonfocal/grossly intact
Psych: Calm
Assessment/Plan
83-year-old female past medical history of hyponatremia, CVA, CAD, hypertension, hyperlipidemia, anemia, overactive bladder, chronic kidney disease, presented with generalized fatigue and overall weakness, dark stools and shortness of breath with
sore throat and cough for a few days prior to presentation. Vomiting once on the day before presentation. Persistently hyponatremic at [place] [facility] despite discontinuation of chlorthalidone. Patient received IV fluids and Samsca before discharge on
05/20. Patient was hypoxemic at the time of admission, requiring 3 L oxygen. Appeared euvolemic. Initial labs showed sodium 119 from 127. Urine sodium of 38, osmolality of 293 on 05/17. Leukocytosis of 13. Hemoglobin of 8.9 from 12.7 only a few
weeks ago prior to presentation. MCV of 88. Rectal exam reveals brown heme positive stool. Concern for worsening hyponatremia despite discontinuation of chlorthalidone, addition of IV fluids and dose of Samsca administration before 05/20. Prior
urine studies previously suggest poor solute intake rather than SIADH.
#Hyponatremia likely hypovolemic/acute kidney injury
-Continue PO fluid restriction 32 ounces daily
-Nephrology stopped her Lasix -- nephrology is okay to discharge without diuretics at this her volume status is euvolemic and her echo is mild diastolic
-BMP in am
-nephrology consulted
-Samsca has been given
#Chronic Bilateral Hip Pain
-Bilateral hip x-rays with no significant hip osseous or articular abnormality
#Acute HFpEF was present on admission and is now resolved
#Elevated BNP
#Moderate to severe pulmonary edema pattern with small to moderate bilateral pleural effusions
-Status post Lasix -- no Lasix needed on discharge
-I&O
-daily weight
-PO fluid restriction 32 ounces daily
-Cardiology onboard
#Symptomatic anemia from GI bleed
#Presentation with dysphagia, dark stool, non bloody emesis and drop in Hgb from baseline
#Small hiatal hernia.
#Erythematous mucosa in the stomach - biopsied
-EGD performed on 06/04/24, biopsies were taken with a cold forceps for evaluation of eosinophilic esophagitis.
-Heme positive brown stool
-Okay to continue Aspirin 81 mg daily as per GI
-Resume previous diet
-Continue Protonix 40 mg P.O. x 8 weeks but then stop.
-Follow-up on pathology results.
-GI will hold off on colonoscopy but if patient has ZULEMA or persistent bleeding recommend pursuing recommend outpatient.
-Patient previously followed at [place] for colonoscopy last one a few years ago per her report unclear
#Anemia -- suspected to be anemia of chronic disease
#Leukocytosis likely stress reaction - RESOLVED
-WBCs 13.0
-Chest x-ray with moderate to severe pulmonary edema pattern with small to moderate bilateral pleural effusions.
-UA not suggestive of infection
-COVID and Flu negative
#Acute hypoxic respiratory failure - RESOLVED - from pulmonary edema
-Status post Lasix
-Wean as tolerated
#Generalized bruising unclear cause
-Continue to monitor
-Hgb stable
#Hypertension
#Orthostatic Hypotension
-Hydralazine (reduced to 25 mg TID from 100 mg TID due to orthostatic hypotension), metoprolol, nifedipine, continued
-Hold valsartan due to MORRIS
#History of CVA
-Continue Aspirin
#Hyperlipidemia
-Continue Lipitor 40mg
#Overactive Bladder
-Continue oxybutynin 10 mg bid
DVT Prophylaxis: SCDs. Have been holding chemical DVT prophylaxis due to recent symptomatic anemia with concern for GI bleed.
Code Status: Full code
Anticipated Discharge: Within 24 hours
Subjective/Interval History
-
Date of Service: June 05, 2024
Patient was seen and examined. She denied any complaints.
Objective Data
-
Labs:
Laboratory Results
06/05/24
05:57
WBC 8.7
Hgb 9.4 L
Hct 27.1 L
Plt Count 446 H
Sodium 131 L
Potassium 4.6
Chloride 94 L
Carbon Dioxide 30
BUN 37 H
Creatinine 1.5 H
Glucose 90
Calcium 9.3
Vital Signs:
Vital Signs
Temp Pulse Resp BP Pulse Ox
98.0 F 65 16 147/58 95
06/04/24 23:41 06/04/24 23:41 06/04/24 23:41 06/04/24 23:41 06/04/24 23:41
I&O
06/04/24 06/05/24 06/06/24
06:59 06:59 06:59
Intake Total 1440 / 1440 240 / 240
Balance 1440 / 1440 240 / 240
[2024-06-05] MEDS: TOPROL XL 25 MG PO ×2 (07:53→21:26)
[2024-06-05] MEDS: APRESOLINE 25 MG PO ×3 (07:54→21:27)
[2024-06-05] MEDS: DITROPAN 5 MG PO ×2 (07:54→21:13)
[2024-06-05] MEDS: LASIX 20 MG PO (07:54)
[2024-06-05] MEDS: CATAPRES 0.1 MG PO (07:54)
[2024-06-05] MEDS: PROTONIX 40 MG PO (07:54)
[2024-06-05] MEDS: LOW STRENGTH ASPIRIN 81 MG PO (07:54)
[2024-06-05] MEDS: MAGNESIUM OXIDE 500 MG PO (07:54)
[2024-06-05] MEDS: NSS (PRESERVATIVE FREE) IV ×2 (07:55→21:12)
[2024-06-05] MEDS: PROCARDIA XL (EXTENDED RELEASE) 90 MG PO (12:42)
--- NOTE | 2024-06-05 13:46 | W.PN.NEPH.PH ---
Today's Communication / Plan
-
Discontinue Lasix
Assessment/Plan
-
83-year-old female with past medical history of essential hypertension, overactive bladder, hyperlipidemia who presented to ER May 31, 2024 with abdominal pain and nausea vomiting and dark stools found to have a drop in hemoglobin and
hyponatremia 119.
The previously seen with a hemoglobin of 125 on rehab for acute stroke. At that time she was placed on Plavix and aspirin.
impression.
Hyponatremia 119. Discharged April from [facility] with a sodium of 127 thought to be from chlorthalidone.
hypertensive emergency status post CVA April 2024 discharged on Plavix and aspirin.
overactive bladder
plan.
Fluid restrict at 32 ounces to continue,currently NPO for EGD tomorrow/canceled today because anesthesia wants serum sodium at 130
Sodium increased from 121-127 following Samsca administration of 7.5 mg on 06/01/2024
Congestive heart failure noted on personally reviewed chest x-ray, maintaining 40 mg IV daily of Lasix
PPI with GI bleed.
Checked urine indices. Urine osmolality 304
Sodium 131 responded to Samsca.
Status post EGD no acute findings.
Serum sodium remained stable although creatinine has gone up to 1.5.
I will hold her Lasix of 20 mg and would be okay to discharge without diuretics at this her volume status is euvolemic and her echo is mild diastolic
-
-
Date of Service: June 05, 2024
CC / HPI / ROS
-
Chief Complaint:
Hyponatremia
History of Present Illness:
Serum sodium level up following Samsca administration on 06/01/2024 and June 03
Sodium improved. Creatinine up slightly today from baseline
Review of Systems:
Nonoliguric
weights down
Labs
-
Labs:
WBC 8.7 10^3/uL (4.8-10.8) 06/05/24 05:57
RBC 3.01 10^6/uL (4.20-5.40) L 06/05/24 05:57
Hgb 9.4 g/dL (12.0-16.0) L 06/05/24 05:57
Hct 27.1 % (37.0-47.0) L 06/05/24 05:57
Plt Count 446 10^3/uL (130-400) H 06/05/24 05:57
Sodium 131 mmol/L (135-145) L 06/05/24 05:57
Potassium 4.6 mmol/L (3.5-5.1) 06/05/24 05:57
Chloride 94 mmol/L (98-107) L 06/05/24 05:57
Carbon Dioxide 30 mmol/L (22-30) 06/05/24 05:57
BUN 37 mg/dl (7-17) H 06/05/24 05:57
Creatinine 1.5 mg/dL (0.6-1.0) H 06/05/24 05:57
eGFR 34.15 06/05/24 05:57
Glucose 90 mg/dl (70-99) 06/05/24 05:57
Calcium 9.3 mg/dl (8.4-10.2) 06/05/24 05:57
Arp-P-Jtlpfbccnwt Pept 69275 pg/ml 05/31/24 10:36
Albumin 3.8 g/dl (3.5-5.0) 05/31/24 10:36
Physical Exam
-
Vital Signs:
Vital Signs
Temp Pulse Resp BP Pulse Ox
97.9 F 68 16 175/55 96
06/05/24 07:00 06/05/24 07:00 06/05/24 07:00 06/05/24 07:53 06/05/24 07:00
Cardiovascular:: Regular rate and rhythm
Respiratory:: Bilateral: CTA
Lung Excursion:: Normal
Abdomen:: Nontender
Extremity Edema:: None: Bilateral: (trace)
Winters Catheter: No
--- NOTE | 2024-06-05 14:35 | CM ---
CM reviewed chart, patient medically stable for discharge pending SNF bed. [facility] not in contract with patients insurance, awaiting response from [facility], and [facility]. Patient will require insurance auth. CM will continue to
follow for all discharge planning needs.
Plan; SNF pending accepting facility, referrals placed, will require insurance auth.
[2024-06-05 16:59] VITALS: BP 149/55; PULSE 61; O2SAT 96
[2024-06-05] MEDS: LIPITOR 40 MG PO (21:27)
[2024-06-05 23:30] VITALS: BP 148/52
[2024-06-06 06:00] VITALS: BMI 20.7
[2024-06-06 07:28] VITALS: BP 177/48
[2024-06-06] MEDS: NSS (PRESERVATIVE FREE) IV ×2 (07:57→20:38)
[2024-06-06] MEDS: LOW STRENGTH ASPIRIN 81 MG PO (09:08)
[2024-06-06] MEDS: CATAPRES 0.1 MG PO (09:08)
[2024-06-06] MEDS: DITROPAN 5 MG PO ×2 (09:08→20:38)
[2024-06-06] MEDS: MAGNESIUM OXIDE 500 MG PO (09:08)
[2024-06-06] MEDS: PROTONIX 40 MG PO (09:08)
[2024-06-06] MEDS: APRESOLINE 25 MG PO ×3 (09:08→23:25)
[2024-06-06] MEDS: TOPROL XL 25 MG PO ×2 (09:08→20:38)
[2024-06-06 09:15] LABS: Hematocrit 28.3 % (37.0-47.0); Hemoglobin 9.7 g/dL (12.0-16.0); Mean Corp Hgb Conc. 34.3 g/dL (33.0-37.0); Mean Corpuscular Hgb 31.2 pg (27.0-31.0); Platelet Count 455 10^3/uL (130-400); Red Blood Cell Count 3.11 10^6/uL (4.20-5.40); Red Cell Dist. Width 14.4 % (11.5-14.5); White Blood Cell Count 7.9 10^3/uL (4.8-10.8)
[2024-06-06 09:53] LABS: Blood Urea Nitrogen 38 mg/dl (7-17); Calcium 9.4 mg/dl (8.4-10.2); Carbon Dioxide 30 mmol/L (22-30); Chloride 94 mmol/L (98-107); Estimated Creatinine Clearance 20 ml/min; Glucose 87 mg/dl (70-99); Potassium 4.5 mmol/L (3.5-5.1); Sodium 131 mmol/L (135-145); eGFR 34.15
[2024-06-06] MEDS: PROCARDIA XL (EXTENDED RELEASE) 90 MG PO (12:37)
--- NOTE | 2024-06-06 15:15 | W.PN.NEPH.PH ---
Today's Communication / Plan
-
cotn FR
prn lasix
Assessment/Plan
-
83-year-old female with past medical history of essential hypertension, overactive bladder, hyperlipidemia who presented to ER May 31, 2024 with abdominal pain and nausea vomiting and dark stools found to have a drop in hemoglobin and
hyponatremia 119.
The previously seen with a hemoglobin of 125 on rehab for acute stroke. At that time she was placed on Plavix and aspirin.
impression.
Hyponatremia 119. Discharged April from [place] [facility] with a sodium of 127 thought to be from chlorthalidone.
hypertensive emergency status post CVA April 2024 discharged on Plavix and aspirin.
overactive bladder
possible CKD 3
plan.
Hyponatremia -stable at 131 with FR
could potentially resume lasix based on wts and resp symp, echo noted DD
CXR on admit with CHF but resp status is stable on RA
cr remains higher than baseline , baseline 1.1-1.3?
BP were high improving now
labs in am
-
-
Date of Service: June 06, 2024
CC / HPI / ROS
-
Chief Complaint:
Hyponatremia
History of Present Illness:
Serum sodium level stable at 131, samsca administration on 06/01/2024 and June 03
cr no change at 1.5
Review of Systems:
Nonoliguric
weights down
no n/v
no sob
Labs
-
Labs:
WBC 7.9 10^3/uL (4.8-10.8) 06/06/24 08:45
RBC 3.11 10^6/uL (4.20-5.40) L 06/06/24 08:45
Hgb 9.7 g/dL (12.0-16.0) L 06/06/24 08:45
Hct 28.3 % (37.0-47.0) L 06/06/24 08:45
Plt Count 455 10^3/uL (130-400) H 06/06/24 08:45
Sodium 131 mmol/L (135-145) L 06/06/24 08:45
Potassium 4.5 mmol/L (3.5-5.1) 06/06/24 08:45
Chloride 94 mmol/L (98-107) L 06/06/24 08:45
Carbon Dioxide 30 mmol/L (22-30) 06/06/24 08:45
BUN 38 mg/dl (7-17) H 06/06/24 08:45
Creatinine 1.5 mg/dL (0.6-1.0) H 06/06/24 08:45
eGFR 34.15 06/06/24 08:45
Glucose 87 mg/dl (70-99) 06/06/24 08:45
Calcium 9.4 mg/dl (8.4-10.2) 06/06/24 08:45
Odu-A-Sndbvswiwjv Pept 67001 pg/ml 05/31/24 10:36
Albumin 3.8 g/dl (3.5-5.0) 05/31/24 10:36
Physical Exam
-
Vital Signs:
Vital Signs
Temp Pulse Resp BP Pulse Ox
98 F 63 20 137/45 94
06/06/24 07:28 06/06/24 07:28 06/06/24 07:28 06/06/24 12:37 06/06/24 07:28
Cardiovascular:: Regular rate and rhythm
Respiratory:: Bilateral: CTA
Lung Excursion:: Normal
Abdomen:: Nontender
Extremity Edema:: None: Bilateral:
Winters Catheter: No
[2024-06-06 15:21] VITALS: BP 123/40
--- NOTE | 2024-06-06 15:23 | CM ---
Addendum entered by Darcie Fuller 06/06/24 16:07:
Auth submitted to [facility], Pending Ref # [id number]. All clinicals faxed to .
Original Note:
aerospace manager spoke with patient, family and admissions at [facility] and they could accept patient tomorrow if patient is approved by insurance, case specialist reached out to patient's insurance and will proceed with Auth for skilled placement
at [facility].
Plan; Auth submitted for skilled placement at [facility].
--- NOTE | 2024-06-06 15:35 | W.PN.HOSP.TC ---
Today's Communication/Plan
-
DC planning
Assessment / Plan
Assessment / Plan
Assessment/Plan
83-year-old female past medical history of hyponatremia, CVA, CAD, hypertension, hyperlipidemia, anemia, overactive bladder, chronic kidney disease, presented with generalized fatigue and overall weakness, dark stools and shortness of breath with
sore throat and cough for a few days prior to presentation. Vomiting once on the day before presentation. Persistently hyponatremic at [place] [facility] despite discontinuation of chlorthalidone. Patient received IV fluids and Samsca before discharge on
05/20. Patient was hypoxemic at the time of admission, requiring 3 L oxygen. Appeared euvolemic. Initial labs showed sodium 119 from 127. Urine sodium of 38, osmolality of 293 on 05/17. Leukocytosis of 13. Hemoglobin of 8.9 from 12.7 only a few
weeks ago prior to presentation. MCV of 88. Rectal exam reveals brown heme positive stool. Concern for worsening hyponatremia despite discontinuation of chlorthalidone, addition of IV fluids and dose of Samsca administration before 05/20. Prior
urine studies previously suggest poor solute intake rather than SIADH.
#Hyponatremia likely hypovolemic/acute kidney injury
-Continue PO fluid restriction 32 ounces daily
-Nephrology stopped her Lasix -- nephrology is okay to discharge without diuretics at this her volume status is euvolemic and her echo is mild diastolic
-Sodium stable at 131.
-Samsca has been given
#Chronic Bilateral Hip Pain
-Bilateral hip x-rays with no significant hip osseous or articular abnormality
#Acute HFpEF was present on admission and is now resolved
#Elevated BNP
#Moderate to severe pulmonary edema pattern with small to moderate bilateral pleural effusions
-Status post Lasix -- no Lasix needed on discharge
-PO fluid restriction 32 ounces daily
-Cardiology onboard
#Symptomatic anemia from GI bleed
#Presentation with dysphagia, dark stool, non bloody emesis and drop in Hgb from baseline
#Small hiatal hernia.
#Erythematous mucosa in the stomach - biopsied
-EGD performed on 06/04/24, biopsies were taken with a cold forceps for evaluation of eosinophilic esophagitis.
-Heme positive brown stool
-Okay to continue Aspirin 81 mg daily as per GI
-Continue Protonix 40 mg P.O. x 8 weeks but then stop.
-Follow-up on pathology results.
-GI will hold off on colonoscopy but if patient has ZULEMA or persistent bleeding recommend pursuing recommend outpatient.
-Patient previously followed at [facility] for colonoscopy last one a few years ago per her report unclear
#Anemia -- suspected to be anemia of chronic disease. H&H stable.
#Leukocytosis likely stress reaction - RESOLVED
-WBCs 13.0
-Chest x-ray with moderate to severe pulmonary edema pattern with small to moderate bilateral pleural effusions.
-UA not suggestive of infection
-COVID and Flu negative
#Acute hypoxic respiratory failure - RESOLVED - from pulmonary edema
-Status post Lasix
-Wean as tolerated
#Generalized bruising unclear cause
-Continue to monitor
-Hgb stable
#Hypertension
#Orthostatic Hypotension
-Hydralazine (reduced to 25 mg TID from 100 mg TID due to orthostatic hypotension), metoprolol, nifedipine, continued
-Hold valsartan due to MORRIS
#History of CVA
-Continue Aspirin
#Hyperlipidemia
-Continue Lipitor 40mg
#Overactive Bladder
-Continue oxybutynin 10 mg bid
DVT Prophylaxis: SCDs. Have been holding chemical DVT prophylaxis due to recent symptomatic anemia with concern for GI bleed.
Code Status: Full code
Medically stable for discharge. PT recommending rehab.
Discussed with case management-patient is a place in rehab tomorrow. Pending authorization.
Anticipated Discharge: Within 24 hours
Subjective/Interval History
-
Date of Service: June 06, 2024
Feels okay. Voices no specific complaints.
No nausea vomiting. No abdominal pain.
Denies dizziness.
Short of breath. No chest pain.
Objective Data
-
Labs:
Laboratory Results
06/06/24
08:45
WBC 7.9
Hgb 9.7 L
Hct 28.3 L
Plt Count 455 H
Sodium 131 L
Potassium 4.5
Chloride 94 L
Carbon Dioxide 30
BUN 38 H
Creatinine 1.5 H
Glucose 87
Calcium 9.4
Vital Signs:
Vital Signs
Temp Pulse Resp BP Pulse Ox
97.6 F 61 18 123/40 97
06/06/24 15:21 06/06/24 15:21 06/06/24 15:21 06/06/24 15:21 06/06/24 15:21
I&O
06/05/24 06/06/24 06/07/24
06:59 06:59 06:59
Intake Total 240 / 240 480 / 480
Balance 240 / 240 480 / 480
Review of Systems
-
Constitutional: Denies Fever
EENT: Denies Sore Throat
Respiratory: Denies Cough
Abdomen/GI: Denies Abdominal Pain
Physical Exam
-
General: Comfortable
Respiratory: Non Labored Respirations; Negative Accessory Resp Muscle Use
Cardiac: Regular Rhythm and S1/S2
GI: Soft and Nontender
Musculoskeletal: No Edema
Neuro: AO x 3
Data Reviewed
-
Labs: Labs Reviewed by me
--- NOTE | 2024-06-06 16:30 | CON.MD ---
Documented by User: Anette Martinez PA-C 06/06/24 17:07
Consultation - Medical
-
Referring Provider: Leonel Coulter
Chief Complaint: Hyponatremia
�
History of Present Illness:�Patient is 83-year-old right-handed female with PMH of (essential hypertension, cachexia, overactive bladder, hyperlipidemia, CVA, hyperlipidemia, anemia, hyponatremia, chronic kidney disease) presented to ER on
May 31, 2024 with generalized fatigue and overall weakness, dark stools and shortness of breath with sore throat and cough for a few days prior to presentation. Vomiting once on the day before presentation. Persistently hyponatremic at [facility] despite discontinuation of chlorthalidone. Patient received IV fluids and Samsca before discharge on 05/20. Patient was hypoxemic at the time of admission, requiring 3 L oxygen. Appeared euvolemic. Initial labs showed sodium 119 from 127.
Urine sodium of 38, osmolality of 293 on 05/17. Leukocytosis of 13. Hemoglobin of 8.9 from 12.7 only a few weeks ago prior to presentation. MCV of 88. Rectal exam reveals brown heme positive stool. Concern for worsening hyponatremia despite
discontinuation of chlorthalidone, addition of IV fluids and dose of Samsca administration before 05/20. Prior urine studies previously suggest poor solute intake rather than SIADH. abdominal pain and nausea, vomiting and dark stools found to have
a drop in hemoglobin and hyponatremia at 119.
06/03-Nephrology giving another dose of Samsca today. Continue IV lasix. No change in Cr at 1.5. Patient on fluid restriction of 32 ounces daily. Nephrology stopping her Lasix�nephrology okay to discharge without diuretic history volume status is
euvolemic and her echo has mild diastolic.
Hemoglobin has dropped significantly with dark stools recently. Hold Aspirin. Clear liquid diet. N.p.o. past midnight for possible EGD tomorrow. Check iron studies, B12 and folate. Protonix drip started. GI consulted - Plan to proceed with EGD
once sodium is about 130.
Patient with hypoxemia could be upper respiratory infection versus pneumonia. COVID and Influenza both negative -
Chest xray - 05/31- Cardiac silhouette enlarged with diffusely increased interstitial markings and indistinctness of the central pulmonary vasculature. Evidence for small to moderate bilateral pleural effusions.
Carotid ultrasound�05/02/2024�Right carotid: Small amount of mixed calcified and noncalcified plaque within the bulb and proximal ICA. Any stenosis is less than 50% based upon velocity criteria. Left carotid: Small amount of calcified plaque within
the carotid bulb and proximal ICA. Any stenosis is less than 50% based upon velocity criteria.
Echo�05/02/2024: Normal left ventricular size and systolic function. No regional wall motion
abnormalities are seen. LV ejection fraction is 65-70% by Ghotra's method of discs. Mild concentric left ventricular hypertrophy. Diastolic function indeterminate. There is no cardiac embolic source seen
EGD 06/04- Normal esophagus. Small hiatal hernia.
- Erythematous mucosa in the stomach. Biopsied.
- Normal examined duodenum.
- Biopsies were taken with a cold forceps for
evaluation of eosinophilic esophagitis. GI recommended Resuming regular diet. Continue present medications. Can continue Protonix 40 mg po x 8 weeks then stop.
Holding off colonoscopy if has ZULEMA or persistent bleeding recommend pursuing recommend outpatient. Previously followed at [facility] for colonoscopy last one a few
years ago per her report unclear.
Past Medical History: CVA, aphasia, HTN, DLP, overactive bladder, osteoporosis, BMI 21, Anemia, Hyponatremia
Procedure History:�Not sure, mentioned giving but no .
Family History:�Brother from appendectomy surgery, dad�heart disease, cancer in the family
�
Social History:�
Functional Level Premorbidly:�Independent with all activities previously, assisted since last rehab
Functional Level Currently:�Eating�set up, upper extremity care, lower extremity care�supervision, bed mobility�supervision, transfer�supervision, ambulated 60 feet with rolling walker and min assist for contact-guard.
�
Tobacco:�Denies�
Alcohol:�Denies�
Drug use:�Denies�
�
Lives with:�Lives with son who works outside of home-PT
24-hour assistance available:�Son, Davion, has good ability to care for her at home if needed.
Number of floors:�Two-story
# steps to enter:�4�5 steps at entrance,
# steps to second floor:FF
Potential First floor set up:�Yes, bedroom/bath
Driving:�no
Occupation:�Retired
�
Allergies:�
Allergy/AdvReac Type Severity Reaction Status Date / Time
No Known Allergies Allergy Verified 05/05/24 13:12
�
Review of Systems:��
Constitutional: (x) abNormal _fatigue
Eye: (x) Normal _
Ear/Nose/Throat: (x) Normal _
Respiratory: (x) Normal _
Cardiovascular: (x) abNormal _ HTN, chf
Gastrointestinal: (x) abNormal _ GI bleed
Genitourinary: (x) Normal _hyponatremia
Musculoskeletal: (x) Normal _
Integumentary: (x) Normal _
Neurologic: (x) AbNormal- cva,
Psychiatric: (x) Normal _
Endocrine: (x) Normal _
Hematologic/Lymphatic: (x) Normal _
Allergic/Immunologic: (x) Normal _
�
Medications:��
Active Current Visit Medication List
Category Date Time Status
0.9% Sodium Chloride [Nss (Preservative Free)] Med 06/01/24 08:00 Active
10 ml IV BID
Aspirin Chewable [Low Strength Aspirin] Med 06/03/24 14:00 Active
81 mg PO DAILY
Atorvastatin [Lipitor] Med 05/31/24 22:00 Active
40 mg PO HS
Bisacodyl [Dulcolax] Med 05/31/24 19:28 Active
10 mg RECTAL [id number] PRN
Clonidine [Catapres] Med 06/01/24 08:00 Active
0.1 mg PO DAILY
Docusate W/Senna [Senokot-S] Med 05/31/24 19:28 Active
1 tablet PO BIDPRN PRN
Flush (0.9% Sodium Chloride) [Flush (Nss)] Med 05/31/24 19:00 Active
See Dose Instructions IV PER PROTOCOL
HydrALAZINE [Apresoline] Med 06/01/24 04:23 Active
10 mg IV Q4HPRN PRN
HydrALAZINE [Apresoline] Med 06/01/24 16:47 Active
25 mg PO TID
Magnesium Oxide Med 06/04/24 19:00 Active
500 mg PO DAILY
Metoprolol Xl [Toprol Xl] Med 06/03/24 20:00 Active
25 mg PO BID
NIFEdipine EXTENDED RELEASE [Procardia Xl (Extended Med 06/01/24 12:00 Active
Release)]
90 mg PO NOON
Oxybutynin Chloride [Ditropan] Med 05/31/24 20:00 Active
5 mg PO BID
Pantoprazole [Protonix] Med 06/04/24 10:00 Active
40 mg PO DAILY
Polyethylene Glycol Powder [Miralax] Med 05/31/24 19:28 Active
17 grams PO DAILYPRN PRN
Vitals:��
Temp Pulse Resp BP Pulse Ox
97.6 F 61 18 123/40 97
06/06/24 15:21 06/06/24 15:21 06/06/24 15:21 06/06/24 15:21 06/06/24 15:21
Height 5 ft
Actual Weight 48.081 kg
Body Mass Index (BMI) 20.7
Physical Exam:��
General Appearance/Observation: Well-developed, well-nourished individual in no apparent distress.�
Pain/Comfort Assessment: Denies�
Mood/Affect: Appropriate�. pleasant.
�
Integumentary/Operative Site:�
�� Pressure Ulcer Evaluation: absent over heels.�
��
Eyes: Conjunctiva/Lids: normal���� Pupils: pupils equal round and reactive to light and Accommodation�
Ears/Nose/Throat: oral mucosa moist,� throat clear.������������ Lips/Teeth/Gums: lips - dry
Neck: No muscle spasm or tenderness�
Cardiovascular: Heart: regular, no murmur�
Pulses: dorsalis pedis 2+ bilaterally�
Respiratory: Respiratory Effort/Chest Expansion: normal������� Auscultation: Clear to auscultation bilaterally�
Gastrointestinal: abdomen not tender, no distension, normal abdominal bowel sounds
Genitourinary: No Winters�
Extremities:�Edema: None�Cyanosis: None�Trophic�changes: None
�
Neurology Exam:
Orientation: Alert, Oriented to self,
Memory: Short-term memory intact for immediate medical concerns
Comprehension: intact
Two step command: intact
Naming: intact
Cranial Nerves:
�� CNII:�Pupillary light reflex: Intact����Visual Field: Intact
�� CN III, IV, : Extraocular muscles: Intact�
�� CN V:�Facial Sensation�at�Forehead: Intact,�Maxilla: Intact,�Mandible: Intact
�� CN VII:�Facial movement: Mild right facial weakness
�� CN VIII:�Hearing: Normal
�� CN IX/X:�Speech & swallow: low volume, �Position of Uvula: Midline
�� CN XI:�Shoulder shrug: Symmetric
�� CN XII:�Tongue protrusion: Midline
Sensory:
�� Light touch: Intact in bilateral upper and lower extremities
��
Musculoskeletal:Motor: (Manual muscle scale 0-5)�
Muscle SA EF WE EE FF FA HF KE DF EHL PF
Right� 4 5 5 5 5 4 4 5 5 5 5
Left 5 5 5 5 5 5 5 5 5 5 5
�
Tone: Normal in all extremities�
Range of Motion: Passively within normal limits in all extremities�
�
Lab Results:��
Labs
WBC 7.9 10^3/uL (4.8-10.8) 06/06/24 08:45
RBC 3.11 10^6/uL (4.20-5.40) L 06/06/24 08:45
Hgb 9.7 g/dL (12.0-16.0) L 06/06/24 08:45
Hct 28.3 % (37.0-47.0) L 06/06/24 08:45
MCV 91.0 fL (81.0-99.0) 06/06/24 08:45
MCH 31.2 pg (27.0-31.0) H 06/06/24 08:45
MCHC 34.3 g/dL (33.0-37.0) 06/06/24 08:45
RDW 14.4 % (11.5-14.5) 06/06/24 08:45
Plt Count 455 10^3/uL (130-400) H 06/06/24 08:45
MPV 9.0 fL (7.4-10.4) 06/06/24 08:45
Abs Immat Gran (auto) 0.1 10^3/uL (0-0.05) H 06/05/24 05:57
Absolute Neuts (auto) 5.9 10^3/uL (1.4-6.5) 06/05/24 05:57
Absolute Lymphs (auto) 1.4 10^3/uL (1.2-3.4) 06/05/24 05:57
Absolute Monos (auto) 1.0 10^3/uL (0.1-0.6) H 06/05/24 05:57
Absolute Eos (auto) 0.3 10^3/uL (0-0.7) 06/05/24 05:57
Absolute Basos (auto) 0.1 10^3/uL (0-0.2) 06/05/24 05:57
Immature Gran % 0.9 % (0-0.5) H 06/05/24 05:57
Neutrophils % 67.5 % (42.2-75.2) 06/05/24 05:57
Lymphocytes % 15.7 % (20.5-51.1) L 06/05/24 05:57
Monocytes % 10.9 % (1.7-9.3) H 06/05/24 05:57
Eosinophils % 3.9 % (0-6) 06/05/24 05:57
Basophils % 1.1 % (0-2) 06/05/24 05:57
Nucleated RBC % 0 % 06/05/24 05:57
Sodium 131 mmol/L (135-145) L 06/06/24 08:45
Potassium 4.5 mmol/L (3.5-5.1) 06/06/24 08:45
Chloride 94 mmol/L (98-107) L 06/06/24 08:45
Carbon Dioxide 30 mmol/L (22-30) 06/06/24 08:45
BUN 38 mg/dl (7-17) H 06/06/24 08:45
Creatinine 1.5 mg/dL (0.6-1.0) H 06/06/24 08:45
Estimated Creat Clear 20 ml/min 06/06/24 08:45
eGFR 34.15 06/06/24 08:45
Glucose 87 mg/dl (70-99) 06/06/24 08:45
Serum Osmolality 256 mOsm/kg (275-300) L 05/31/24 10:36
Calcium 9.4 mg/dl (8.4-10.2) 06/06/24 08:45
Magnesium 1.6 mg/dl (1.6-2.3) 06/05/24 05:57
Iron 48 ug/dl (37-170) 05/31/24 10:36
TIBC 264 ug/dl (265-497) L 05/31/24 10:36
% Saturation 18 % (20-50) L 05/31/24 10:36
Ferritin 186.0 ng/ml (11.1-264.0) 05/31/24 10:36
Total Bilirubin 0.7 mg/dl (0.2-1.3) 05/31/24 10:36
AST 29 U/L (14-36) 05/31/24 10:36
ALT 33 U/L (0-35) 05/31/24 10:36
Alkaline Phosphatase 97 U/L (38-126) 05/31/24 10:36
Rwo-I-Nezldscewfx Pept 79230 pg/ml 05/31/24 10:36
Total Protein 6.1 g/dl (6.3-8.2) L 05/31/24 10:36
Albumin 3.8 g/dl (3.5-5.0) 05/31/24 10:36
Lipase 353 U/L (23-300) H 05/31/24 10:36
Vitamin B12 972 pg/ml (239-931) H 05/31/24 10:36
Folate 15.4 ng/ml (2.76-20) 05/31/24 10:36
Urine Color Yellow 05/31/24 21:49
Urine Clarity Clear (Clear) 05/31/24 21:49
Urine pH 6.0 (5.0-9.0) 05/31/24 21:49
Ur Specific [place] 1.010 (<1.030) 05/31/24 21:49
Urine Ketones Negative (Negative) 05/31/24 21:49
Ur Occult Blood Reflex Negative (Negative) 05/31/24 21:49
Urine Nitrite (Reflex) Negative (Negative) 05/31/24 21:49
Urine Bilirubin Negative (Negative) 05/31/24 21:49
Urine Urobilinogen Negative (Neg - 1+) 05/31/24 21:49
Leukocyte Esterase Rfl Negative (Negative) 05/31/24 21:49
Urine Osmolality 304 mOsm/kg (300-900) 05/31/24 21:49
Urine Sodium 51 mmol/L (30-90) 05/31/24 21:49
Urine Glucose Negative (Negative) 05/31/24 21:49
Urine Albumin (Reflex) Negative (Neg - Trace) 05/31/24 21:49
SARS-CoV-2 Antigen Negative (Negative) 05/31/24 14:19
Blood Type O NEG 05/31/24 11:41
Blood Type Confirm O NEG 05/31/24 15:52
Antibody Screen Negative (Negative) 05/31/24 11:41
Diagnostic Results: As per HPI��
EGD 06/04/2024
Normal esophagus.
- Small hiatal hernia.
- Erythematous mucosa in the stomach. Biopsied.
- Normal examined duodenum.
- Biopsies were taken with a cold forceps for
evaluation of eosinophilic esophagitis.
Assessment
83-year-old female with PMH of (essential hypertension, cachexia, overactive bladder, hyperlipidemia) presented to the ED due to fatigue and weakness. Found to be hyponatremic and with GI bleed.
��
Plan�
rehab with PT/OT/SW/RN/psychology to increase independence with ADLs, improve balance, coordination, endurance, strength, mobility, community reintegration, decreased burden of care on others and family education.��
Debility: PT/POT
Hyponatremia likely hypovolemic/acute kidney injury: stable at 131
PO fluid restriction 32 ounces daily. Nephrology stopped Lasix.okay to discharge without diuretics at this her volume status is euvolemic and her echo is mild diastolic
Acute HFpEF: was present on admission and is now resolved. Elevated BNP. Moderate to severe pulmonary edema pattern with small to moderate bilateral pleural effusions
Acute hypoxic respiratory failure - Resolved - from pulmonary edema. S/P lasix
CVA: Acute left lentiform nucleus stroke. Likely etiology�small vessel disease. Completed aspirin and Plavix therapy. Now on aspirin 81 mg QD indefinitely, statin, and blood pressure control (SBP less than 180 and diastolic less than 100 to
participate with therapy for ischemic stroke). Continue to monitor neurologic status.�
Aphasia: expressive. OP speech
HTN: Clonidine 0.1mg qd, Nifedipine 90mg po noon, Metoprolol Succinate 25mg bid, hydralazine reduced from 100 to 25mg tid. Valsartan-held due to MORRIS. Monitor closely�
Orthostasis: adjustments made to BP regimen. Monitor
HLD: Atorvastatin 40 mg at bedtime
Coronary artery disease�: Aspirin, statin, beta-lizett�
Leukocytosis likely stress reaction - Resolved. UA not suggestive of infection. COVID and Flu negative
Anemia/GI bleed: Likely multifactorial.� EGD performed on 06/04/24, biopsies were taken with a cold forceps for evaluation of eosinophilic esophagitis. Heme positive brown stool. Okay to continue Aspirin 81 mg daily as per GI. GI will hold off on
colonoscopy,but if patient has ZULEMA or persistent bleeding recommend pursuing recommend outpatient. Continue to monitor.�
Psych: Psychology consult.� Monitor mood, medications as needed.� Trazodone 12.5 mg at night as needed for sleep or agitation.
Skin: monitor for pressure sores/rashes/lesions.�
Pain: acetaminophen as needed.�
Bowel: Colace and Senna, PRN bisacodyl.�
Overactive Bladder: Time void, PVRs, PRN straight cath.� Oxybutynin 10 mg twice daily
GI Prophylaxis: Pantoprazole�40mg qd
DVT Prophylaxis:mechanical. Have been holding chemical DVT prophylaxis due to recent symptomatic anemia with concern for GI bleed.
Pulmonary: Incentive spirometry�
Safety: Continue to reinforce assistance with all transfers.�
Code Status:� Full code
Dispo�(date/plan/equipment needs): Home with family care.� Social history reviewed.
Discharge Destination:� : SNF or Home PT
DVT Prophylaxis:mechanical. Have been holding chemical DVT prophylaxis due to recent symptomatic anemia with concern for GI bleed. Comment on chemical restriction for post discharge
Orthostasis: adjustments made to BP regimen. Monitor. Could consider TEDs if still with soft BP
Thank you for allowing me to care for your patient. Please contact me with any questions or concerns.

Documented by User: Ozzie Encinas MD 06/06/24 17:32
Consultation - Medical
-
Referring Provider: Leonel Coulter
Chief Complaint: Hyponatremia
�
History of Present Illness:�Patient is 83-year-old right-handed female with PMH of (essential hypertension, cachexia, overactive bladder, hyperlipidemia, CVA, hyperlipidemia, anemia, hyponatremia, chronic kidney disease) presented to ER on
May 31, 2024 with generalized fatigue and overall weakness, dark stools and shortness of breath with sore throat and cough for a few days prior to presentation. Vomiting once on the day before presentation. Persistently hyponatremic at [facility] despite discontinuation of chlorthalidone. Patient received IV fluids and Samsca before discharge on 05/20. Patient was hypoxemic at the time of admission, requiring 3 L oxygen. Appeared euvolemic. Initial labs showed sodium 119 from 127.
Urine sodium of 38, osmolality of 293 on 05/17. Leukocytosis of 13. Hemoglobin of 8.9 from 12.7 only a few weeks ago prior to presentation. MCV of 88. Rectal exam reveals brown heme positive stool. Concern for worsening hyponatremia despite
discontinuation of chlorthalidone, addition of IV fluids and dose of Samsca administration before 05/20. Prior urine studies previously suggest poor solute intake rather than SIADH. abdominal pain and nausea, vomiting and dark stools found to have
a drop in hemoglobin and hyponatremia at 119.
06/03-Nephrology giving another dose of Samsca today. Continue IV lasix. No change in Cr at 1.5. Patient on fluid restriction of 32 ounces daily. Nephrology stopping her Lasix�nephrology okay to discharge without diuretic history volume status is
euvolemic and her echo has mild diastolic.
Hemoglobin has dropped significantly with dark stools recently. Hold Aspirin. Clear liquid diet. N.p.o. past midnight for possible EGD tomorrow. Check iron studies, B12 and folate. Protonix drip started. GI consulted - Plan to proceed with EGD
once sodium is about 130.
Patient with hypoxemia could be upper respiratory infection versus pneumonia. COVID and Influenza both negative -
Chest xray - 05/31- Cardiac silhouette enlarged with diffusely increased interstitial markings and indistinctness of the central pulmonary vasculature. Evidence for small to moderate bilateral pleural effusions.
Carotid ultrasound�05/02/2024�Right carotid: Small amount of mixed calcified and noncalcified plaque within the bulb and proximal ICA. Any stenosis is less than 50% based upon velocity criteria. Left carotid: Small amount of calcified plaque within
the carotid bulb and proximal ICA. Any stenosis is less than 50% based upon velocity criteria.
Echo�05/02/2024: Normal left ventricular size and systolic function. No regional wall motion
abnormalities are seen. LV ejection fraction is 65-70% by Ghotra's method of discs. Mild concentric left ventricular hypertrophy. Diastolic function indeterminate. There is no cardiac embolic source seen
EGD 06/04- Normal esophagus. Small hiatal hernia.
- Erythematous mucosa in the stomach. Biopsied.
- Normal examined duodenum.
- Biopsies were taken with a cold forceps for
evaluation of eosinophilic esophagitis. GI recommended Resuming regular diet. Continue present medications. Can continue Protonix 40 mg po x 8 weeks then stop.
Holding off colonoscopy if has ZULEMA or persistent bleeding recommend pursuing recommend outpatient. Previously followed at [facility] for colonoscopy last one a few
years ago per her report unclear.
Past Medical History: CVA, aphasia, HTN, DLP, overactive bladder, osteoporosis, BMI 21, Anemia, Hyponatremia
Procedure History:�Not sure, mentioned giving but no .
Family History:�Brother from appendectomy surgery, dad�heart disease, cancer in the family
�
Social History:�
Functional Level Premorbidly:�Independent with all activities previously, assisted since last rehab
Functional Level Currently:�Eating�set up, upper extremity care, lower extremity care�supervision, bed mobility�supervision, transfer�supervision, ambulated 60 feet with rolling walker and min assist for contact-guard.
�
Tobacco:�Denies�
Alcohol:�Denies�
Drug use:�Denies�
�
Lives with:�Lives with son who works outside of home-PT
24-hour assistance available:�Son, Davion, has good ability to care for her at home if needed.
Number of floors:�Two-story
# steps to enter:�4�5 steps at entrance,
# steps to second floor:FF
Potential First floor set up:�Yes, bedroom/bath
Driving:�no
Occupation:�Retired
�
Allergies:�
Allergy/AdvReac Type Severity Reaction Status Date / Time
No Known Allergies Allergy Verified 05/05/24 13:12
�
Review of Systems:��
Constitutional: (x) abNormal _fatigue
Eye: (x) Normal _
Ear/Nose/Throat: (x) Normal _
Respiratory: (x) Normal _
Cardiovascular: (x) abNormal _ HTN, chf
Gastrointestinal: (x) abNormal _ GI bleed
Genitourinary: (x) Normal _hyponatremia
Musculoskeletal: (x) Normal _
Integumentary: (x) Normal _
Neurologic: (x) AbNormal- cva,
Psychiatric: (x) Normal _
Endocrine: (x) Normal _
Hematologic/Lymphatic: (x) Normal _
Allergic/Immunologic: (x) Normal _
�
Medications:��
Active Current Visit Medication List
Category Date Time Status
0.9% Sodium Chloride [Nss (Preservative Free)] Med 06/01/24 08:00 Active
10 ml IV BID
Aspirin Chewable [Low Strength Aspirin] Med 06/03/24 14:00 Active
81 mg PO DAILY
Atorvastatin [Lipitor] Med 05/31/24 22:00 Active
40 mg PO HS
Bisacodyl [Dulcolax] Med 05/31/24 19:28 Active
10 mg RECTAL [id number] PRN
Clonidine [Catapres] Med 06/01/24 08:00 Active
0.1 mg PO DAILY
Docusate W/Senna [Senokot-S] Med 05/31/24 19:28 Active
1 tablet PO BIDPRN PRN
Flush (0.9% Sodium Chloride) [Flush (Nss)] Med 05/31/24 19:00 Active
See Dose Instructions IV PER PROTOCOL
HydrALAZINE [Apresoline] Med 06/01/24 04:23 Active
10 mg IV Q4HPRN PRN
HydrALAZINE [Apresoline] Med 06/01/24 16:47 Active
25 mg PO TID
Magnesium Oxide Med 06/04/24 19:00 Active
500 mg PO DAILY
Metoprolol Xl [Toprol Xl] Med 06/03/24 20:00 Active
25 mg PO BID
NIFEdipine EXTENDED RELEASE [Procardia Xl (Extended Med 06/01/24 12:00 Active
Release)]
90 mg PO NOON
Oxybutynin Chloride [Ditropan] Med 05/31/24 20:00 Active
5 mg PO BID
Pantoprazole [Protonix] Med 06/04/24 10:00 Active
40 mg PO DAILY
Polyethylene Glycol Powder [Miralax] Med 05/31/24 19:28 Active
17 grams PO DAILYPRN PRN
Vitals:��
Temp Pulse Resp BP Pulse Ox
97.6 F 61 18 123/40 97
06/06/24 15:21 06/06/24 15:21 06/06/24 15:21 06/06/24 15:21 06/06/24 15:21
Height 5 ft
Actual Weight 48.081 kg
Body Mass Index (BMI) 20.7
Physical Exam:��
General Appearance/Observation: Well-developed, well-nourished individual in no apparent distress.�
Pain/Comfort Assessment: Denies�
Mood/Affect: Appropriate�. pleasant.
�
Integumentary/Operative Site:�
�� Pressure Ulcer Evaluation: absent over heels.�
��
Eyes: Conjunctiva/Lids: normal���� Pupils: pupils equal round and reactive to light and Accommodation�
Ears/Nose/Throat: oral mucosa moist,� throat clear.������������ Lips/Teeth/Gums: lips - dry
Neck: No muscle spasm or tenderness�
Cardiovascular: Heart: regular, no murmur�
Pulses: dorsalis pedis 2+ bilaterally�
Respiratory: Respiratory Effort/Chest Expansion: normal������� Auscultation: Clear to auscultation bilaterally�
Gastrointestinal: abdomen not tender, no distension, normal abdominal bowel sounds
Genitourinary: No Winters�
Extremities:�Edema: None�Cyanosis: None�Trophic�changes: None
�
Neurology Exam:
Orientation: Alert, Oriented to self,
Memory: Short-term memory intact for immediate medical concerns
Comprehension: intact
Two step command: intact
Naming: intact
Cranial Nerves:
�� CNII:�Pupillary light reflex: Intact����Visual Field: Intact
�� CN III, IV, : Extraocular muscles: Intact�
�� CN V:�Facial Sensation�at�Forehead: Intact,�Maxilla: Intact,�Mandible: Intact
�� CN VII:�Facial movement: Mild right facial weakness
�� CN VIII:�Hearing: Normal
�� CN IX/X:�Speech & swallow: low volume, �Position of Uvula: Midline
�� CN XI:�Shoulder shrug: Symmetric
�� CN XII:�Tongue protrusion: Midline
Sensory:
�� Light touch: Intact in bilateral upper and lower extremities
��
Musculoskeletal:Motor: (Manual muscle scale 0-5)�
Muscle SA EF WE EE FF FA HF KE DF EHL PF
Right� 4 5 5 5 5 4 4 5 5 5 5
Left 5 5 5 5 5 5 5 5 5 5 5
�
Tone: Normal in all extremities�
Range of Motion: Passively within normal limits in all extremities�
�
Lab Results:��
Labs
WBC 7.9 10^3/uL (4.8-10.8) 06/06/24 08:45
RBC 3.11 10^6/uL (4.20-5.40) L 06/06/24 08:45
Hgb 9.7 g/dL (12.0-16.0) L 06/06/24 08:45
Hct 28.3 % (37.0-47.0) L 06/06/24 08:45
MCV 91.0 fL (81.0-99.0) 06/06/24 08:45
MCH 31.2 pg (27.0-31.0) H 06/06/24 08:45
MCHC 34.3 g/dL (33.0-37.0) 06/06/24 08:45
RDW 14.4 % (11.5-14.5) 06/06/24 08:45
Plt Count 455 10^3/uL (130-400) H 06/06/24 08:45
MPV 9.0 fL (7.4-10.4) 06/06/24 08:45
Abs Immat Gran (auto) 0.1 10^3/uL (0-0.05) H 06/05/24 05:57
Absolute Neuts (auto) 5.9 10^3/uL (1.4-6.5) 06/05/24 05:57
Absolute Lymphs (auto) 1.4 10^3/uL (1.2-3.4) 06/05/24 05:57
Absolute Monos (auto) 1.0 10^3/uL (0.1-0.6) H 06/05/24 05:57
Absolute Eos (auto) 0.3 10^3/uL (0-0.7) 06/05/24 05:57
Absolute Basos (auto) 0.1 10^3/uL (0-0.2) 06/05/24 05:57
Immature Gran % 0.9 % (0-0.5) H 06/05/24 05:57
Neutrophils % 67.5 % (42.2-75.2) 06/05/24 05:57
Lymphocytes % 15.7 % (20.5-51.1) L 06/05/24 05:57
Monocytes % 10.9 % (1.7-9.3) H 06/05/24 05:57
Eosinophils % 3.9 % (0-6) 06/05/24 05:57
Basophils % 1.1 % (0-2) 06/05/24 05:57
Nucleated RBC % 0 % 06/05/24 05:57
Sodium 131 mmol/L (135-145) L 06/06/24 08:45
Potassium 4.5 mmol/L (3.5-5.1) 06/06/24 08:45
Chloride 94 mmol/L (98-107) L 06/06/24 08:45
Carbon Dioxide 30 mmol/L (22-30) 06/06/24 08:45
BUN 38 mg/dl (7-17) H 06/06/24 08:45
Creatinine 1.5 mg/dL (0.6-1.0) H 06/06/24 08:45
Estimated Creat Clear 20 ml/min 06/06/24 08:45
eGFR 34.15 06/06/24 08:45
Glucose 87 mg/dl (70-99) 06/06/24 08:45
Serum Osmolality 256 mOsm/kg (275-300) L 05/31/24 10:36
Calcium 9.4 mg/dl (8.4-10.2) 06/06/24 08:45
Magnesium 1.6 mg/dl (1.6-2.3) 06/05/24 05:57
Iron 48 ug/dl (37-170) 05/31/24 10:36
TIBC 264 ug/dl (265-497) L 05/31/24 10:36
% Saturation 18 % (20-50) L 05/31/24 10:36
Ferritin 186.0 ng/ml (11.1-264.0) 05/31/24 10:36
Total Bilirubin 0.7 mg/dl (0.2-1.3) 05/31/24 10:36
AST 29 U/L (14-36) 05/31/24 10:36
ALT 33 U/L (0-35) 05/31/24 10:36
Alkaline Phosphatase 97 U/L (38-126) 05/31/24 10:36
Qwr-L-Eohywnffswp Pept 55863 pg/ml 05/31/24 10:36
Total Protein 6.1 g/dl (6.3-8.2) L 05/31/24 10:36
Albumin 3.8 g/dl (3.5-5.0) 05/31/24 10:36
Lipase 353 U/L (23-300) H 05/31/24 10:36
Vitamin B12 972 pg/ml (239-931) H 05/31/24 10:36
Folate 15.4 ng/ml (2.76-20) 05/31/24 10:36
Urine Color Yellow 05/31/24 21:49
Urine Clarity Clear (Clear) 05/31/24 21:49
Urine pH 6.0 (5.0-9.0) 05/31/24 21:49
Ur Specific [place] 1.010 (<1.030) 05/31/24 21:49
Urine Ketones Negative (Negative) 05/31/24 21:49
Ur Occult Blood Reflex Negative (Negative) 05/31/24 21:49
Urine Nitrite (Reflex) Negative (Negative) 05/31/24 21:49
Urine Bilirubin Negative (Negative) 05/31/24 21:49
Urine Urobilinogen Negative (Neg - 1+) 05/31/24 21:49
Leukocyte Esterase Rfl Negative (Negative) 05/31/24 21:49
Urine Osmolality 304 mOsm/kg (300-900) 05/31/24 21:49
Urine Sodium 51 mmol/L (30-90) 05/31/24 21:49
Urine Glucose Negative (Negative) 05/31/24 21:49
Urine Albumin (Reflex) Negative (Neg - Trace) 05/31/24 21:49
SARS-CoV-2 Antigen Negative (Negative) 05/31/24 14:19
Blood Type O NEG 05/31/24 11:41
Blood Type Confirm O NEG 05/31/24 15:52
Antibody Screen Negative (Negative) 05/31/24 11:41
Diagnostic Results: As per HPI��
EGD 06/04/2024
Normal esophagus.
- Small hiatal hernia.
- Erythematous mucosa in the stomach. Biopsied.
- Normal examined duodenum.
- Biopsies were taken with a cold forceps for
evaluation of eosinophilic esophagitis.
Assessment
83-year-old female with PMH of (essential hypertension, cachexia, overactive bladder, hyperlipidemia) presented to the ED due to fatigue and weakness. Found to be hyponatremic and with GI bleed.
��
Plan�
rehab with PT/OT/SW/RN/psychology to increase independence with ADLs, improve balance, coordination, endurance, strength, mobility, community reintegration, decreased burden of care on others and family education.��
Debility: PT/POT
Hyponatremia likely hypovolemic/acute kidney injury: stable at 131
PO fluid restriction 32 ounces daily. Nephrology stopped Lasix.okay to discharge without diuretics at this her volume status is euvolemic and her echo is mild diastolic
Acute HFpEF: was present on admission and is now resolved. Elevated BNP. Moderate to severe pulmonary edema pattern with small to moderate bilateral pleural effusions
Acute hypoxic respiratory failure - Resolved - from pulmonary edema. S/P lasix
CVA: Acute left lentiform nucleus stroke. Likely etiology�small vessel disease. Completed aspirin and Plavix therapy. Now on aspirin 81 mg QD indefinitely, statin, and blood pressure control (SBP less than 180 and diastolic less than 100 to
participate with therapy for ischemic stroke). Continue to monitor neurologic status.�
Aphasia: expressive. OP speech
HTN: Clonidine 0.1mg qd, Nifedipine 90mg po noon, Metoprolol Succinate 25mg bid, hydralazine reduced from 100 to 25mg tid. Valsartan-held due to MORRIS. Monitor closely�
Orthostasis: adjustments made to BP regimen. Monitor
HLD: Atorvastatin 40 mg at bedtime
Coronary artery disease�: Aspirin, statin, beta-lizett�
Leukocytosis likely stress reaction - Resolved. UA not suggestive of infection. COVID and Flu negative
Anemia/GI bleed: Likely multifactorial.� EGD performed on 06/04/24, biopsies were taken with a cold forceps for evaluation of eosinophilic esophagitis. Heme positive brown stool. Okay to continue Aspirin 81 mg daily as per GI. GI will hold off on
colonoscopy,but if patient has ZULEMA or persistent bleeding recommend pursuing recommend outpatient. Continue to monitor.�
Psych: Psychology consult.� Monitor mood, medications as needed.� Trazodone 12.5 mg at night as needed for sleep or agitation.
Skin: monitor for pressure sores/rashes/lesions.�
Pain: acetaminophen as needed.�
Bowel: Colace and Senna, PRN bisacodyl.�
Overactive Bladder: Time void, PVRs, PRN straight cath.� Oxybutynin 10 mg twice daily
GI Prophylaxis: Pantoprazole�40mg qd
DVT Prophylaxis:mechanical. Have been holding chemical DVT prophylaxis due to recent symptomatic anemia with concern for GI bleed.
Pulmonary: Incentive spirometry�
Safety: Continue to reinforce assistance with all transfers.�
Code Status:� Full code
Dispo�(date/plan/equipment needs): Home with family care.� Social history reviewed.
Discharge Destination:� : SNF or Home PT
DVT Prophylaxis:mechanical. Have been holding chemical DVT prophylaxis due to recent symptomatic anemia with concern for GI bleed. Comment on chemical restriction for post discharge
Orthostasis: adjustments made to BP regimen. Monitor. Could consider TEDs if still with soft BP
ATTENDING NOTE:
Patient seen and examined by me today, and with Anette Martinez PA-C. Patient with some deconditioning with hyponatremia and GIB. Is supervision with transfers and contact guard with ambulation - seems to be improving. Could likely do home PT or
consider short stay SNF rehab if needed before D/C home. No acute rehabilitation needs at this time.
Thank you for allowing me to care for your patient. Please contact me with any questions or concerns.
[2024-06-06 23:00] VITALS: BP 140/48
[2024-06-06] MEDS: LIPITOR 40 MG PO (23:25)
[2024-06-07 07:30] VITALS: BP 173/55
[2024-06-07] MEDS: PROTONIX 40 MG PO (07:39)
[2024-06-07] MEDS: LOW STRENGTH ASPIRIN 81 MG PO (07:39)
[2024-06-07] MEDS: TOPROL XL 25 MG PO (07:39)
[2024-06-07] MEDS: DITROPAN 5 MG PO ×2 (07:39→20:46)
[2024-06-07] MEDS: CATAPRES 0.1 MG PO (07:39)
[2024-06-07] MEDS: MAGNESIUM OXIDE 500 MG PO (07:40)
[2024-06-07] MEDS: APRESOLINE 25 MG PO ×3 (07:40→20:46)
[2024-06-07] MEDS: NSS (PRESERVATIVE FREE) IV ×2 (07:41→20:40)
[2024-06-07 07:49] VITALS: BP 174/62
[2024-06-07 08:57] LABS: Hematocrit 24.8 % (37.0-47.0); Hemoglobin 8.5 g/dL (12.0-16.0); Mean Corp Hgb Conc. 34.3 g/dL (33.0-37.0); Mean Corpuscular Hgb 30.6 pg (27.0-31.0); Mean Corpuscular Volume 89.2 fL (81.0-99.0); Mean Platelet Volume 9.3 fL (7.4-10.4); Platelet Count 409 10^3/uL (130-400); Red Blood Cell Count 2.78 10^6/uL (4.20-5.40); Red Cell Dist. Width 14.1 % (11.5-14.5); White Blood Cell Count 6.8 10^3/uL (4.8-10.8)
[2024-06-07 09:41] LABS: Blood Urea Nitrogen 44 mg/dl (7-17); Calcium 9.1 mg/dl (8.4-10.2); Carbon Dioxide 27 mmol/L (22-30); Chloride 93 mmol/L (98-107); Estimated Creatinine Clearance 20 ml/min; Glucose 90 mg/dl (70-99); Potassium 4.5 mmol/L (3.5-5.1); Sodium 128 mmol/L (135-145); eGFR 34.15
[2024-06-07] MEDS: PROCARDIA XL (EXTENDED RELEASE) 90 MG PO (12:04)
--- NOTE | 2024-06-07 12:30 | W.PN.NEPH.PH ---
Today's Communication / Plan
-
samsca
Assessment/Plan
-
83-year-old female with past medical history of essential hypertension, overactive bladder, hyperlipidemia who presented to ER May 31, 2024 with abdominal pain and nausea vomiting and dark stools found to have a drop in hemoglobin and
hyponatremia 119.
The previously seen with a hemoglobin of 125 on rehab for acute stroke. At that time she was placed on Plavix and aspirin.
impression.
Hyponatremia 119. Discharged April from [facility] with a sodium of 127 thought to be from chlorthalidone.
hypertensive emergency status post CVA April 2024 discharged on Plavix and aspirin.
overactive bladder
possible CKD 3
plan.
follow BMP
samsca today
lasix 20mg daily start tomorrow
-
-
Date of Service: June 07, 2024
CC / HPI / ROS
-
Chief Complaint:
Hyponatremia
History of Present Illness:
Na down to 128
cr no change at 1.5
BP stable
Review of Systems:
Nonoliguric
no n/v
no sob
Labs
-
Labs:
WBC 6.8 10^3/uL (4.8-10.8) 06/07/24 08:35
RBC 2.78 10^6/uL (4.20-5.40) L 06/07/24 08:35
Hgb 8.5 g/dL (12.0-16.0) L 06/07/24 08:35
Hct 24.8 % (37.0-47.0) L 06/07/24 08:35
Plt Count 409 10^3/uL (130-400) H 06/07/24 08:35
Sodium 128 mmol/L (135-145) L 06/07/24 08:34
Potassium 4.5 mmol/L (3.5-5.1) 06/07/24 08:34
Chloride 93 mmol/L (98-107) L 06/07/24 08:34
Carbon Dioxide 27 mmol/L (22-30) 06/07/24 08:34
BUN 44 mg/dl (7-17) H 06/07/24 08:34
Creatinine 1.5 mg/dL (0.6-1.0) H 06/07/24 08:34
eGFR 34.15 06/07/24 08:34
Glucose 90 mg/dl (70-99) 06/07/24 08:34
Calcium 9.1 mg/dl (8.4-10.2) 06/07/24 08:34
Pvp-O-Siolhwfbmss Pept 80218 pg/ml 05/31/24 10:36
Albumin 3.8 g/dl (3.5-5.0) 05/31/24 10:36
Physical Exam
-
Vital Signs:
Vital Signs
Temp Pulse Resp BP Pulse Ox
98.2 F 65 14 174/62 98
06/07/24 07:30 06/07/24 07:49 06/07/24 07:49 06/07/24 07:49 06/07/24 07:49
Cardiovascular:: Regular rate and rhythm
Respiratory:: Bilateral: CTA
Lung Excursion:: Normal
Abdomen:: Nontender and Soft
Bowel Sounds:: Normal
Extremity Edema:: None: Bilateral:
[2024-06-07] MEDS: SAMSCA 15 MG PO (12:48)
--- NOTE | 2024-06-07 13:16 | CM ---
Addendum entered by Darcie Fuller 06/07/24 16:29:
Plan is to home when stable, visiting nurse options reviewed with patient's son Johan and he has selected [facility], referral sent to [facility].
Addendum entered by Darcie Fuller 06/07/24 13:39:
zone manager spoke with insurance broker and patient has been denied skilled placement.
Original Note:
Two calls placed to patient's insurance to check on determination, pending ref # is [id number], still no determination, under review, patient may not be approved for skilled placement.
Plan; Waiting on a determination from insurance.
--- NOTE | 2024-06-07 15:01 | W.PN.HOSP.TC ---
Today's Communication/Plan
-
Follow HH
Samsca today , check Na in am
DC in am dependingon labs
Assessment / Plan
Assessment / Plan
Assessment/Plan
83-year-old female past medical history of hyponatremia, CVA, CAD, hypertension, hyperlipidemia, anemia, overactive bladder, chronic kidney disease, presented with generalized fatigue and overall weakness, dark stools and shortness of breath with
sore throat and cough for a few days prior to presentation. Vomiting once on the day before presentation. Persistently hyponatremic at [facility] despite discontinuation of chlorthalidone. Patient received IV fluids and Samsca before discharge on
05/20. Patient was hypoxemic at the time of admission, requiring 3 L oxygen. Appeared euvolemic. Initial labs showed sodium 119 from 127. Urine sodium of 38, osmolality of 293 on 05/17. Leukocytosis of 13. Hemoglobin of 8.9 from 12.7 only a few
weeks ago prior to presentation. MCV of 88. Rectal exam reveals brown heme positive stool. Concern for worsening hyponatremia despite discontinuation of chlorthalidone, addition of IV fluids and dose of Samsca administration before 05/20. Prior
urine studies previously suggest poor solute intake rather than SIADH.
#Hyponatremia
-Continue PO fluid restriction 32 ounces daily
- Sodium down to 128 today
-Samsca ordered
- Follow Na
#Acute HFpEF was present on admission and is now resolved
#Elevated BNP
#Moderate to severe pulmonary edema pattern with small to moderate bilateral pleural effusions
-Status post Lasix -- further diuretics on dc per renal
-PO fluid restriction 32 ounces daily
-Cardiology onboard
#Symptomatic anemia from GI bleed
#Presentation with dysphagia, dark stool, non bloody emesis and drop in Hgb from baseline
#Small hiatal hernia.
#Erythematous mucosa in the stomach - biopsied
-EGD performed on 06/04/24, biopsies were taken with a cold forceps for evaluation of eosinophilic esophagitis.
-Heme positive brown stool
-Okay to continue Aspirin 81 mg daily as per GI
-Continue Protonix 40 mg P.O. x 8 weeks but then stop.
-Follow-up on pathology results.
-GI will hold off on colonoscopy but if patient has ZULEMA or persistent bleeding recommend pursuing recommend outpatient.
-Patient previously followed at [place] for colonoscopy last one a few years ago per her report unclear
-Slow drop in H&H without external bleeding noted. Continue to follow H&H and further continued drop might need endoscopic eval inpatient.
#Anemia -- suspected to be anemia of chronic disease. H&H slow drop
#Leukocytosis likely stress reaction - RESOLVED
-WBCs 13.0
-Chest x-ray with moderate to severe pulmonary edema pattern with small to moderate bilateral pleural effusions.
-UA not suggestive of infection
-COVID and Flu negative
#Acute hypoxic respiratory failure - RESOLVED - from pulmonary edema
-Status post Lasix
-Wean as tolerated
#Generalized bruising unclear cause
-Continue to monitor
-Hgb stable
#Hypertension
#Orthostatic Hypotension
-Hydralazine (reduced to 25 mg TID from 100 mg TID due to orthostatic hypotension), metoprolol, nifedipine, continued
-Hold valsartan due to MORRIS
#History of CVA
-Continue Aspirin
#Hyperlipidemia
-Continue Lipitor 40mg
#Overactive Bladder
-Continue oxybutynin 10 mg bid
DVT Prophylaxis: SCDs. Have been holding chemical DVT prophylaxis due to recent symptomatic anemia with concern for GI bleed.
Code Status: Full code
Hold DC today with drop in HH and Na
Follow labs tomorrow for dc stability
Anticipated Discharge: Within 24 hours
Subjective/Interval History
-
Date of Service: June 07, 2024
Voicing no specific complaints.
No bowel movement since hospitalization. Denies any abdominal pain. No nausea vomiting.
Denies any dizziness.
Objective Data
-
Labs:
Laboratory Results
06/07/24 06/07/24
08:34 08:35
WBC 6.8
Hgb 8.5 L
Hct 24.8 L
Plt Count 409 H
Sodium 128 L
Potassium 4.5
Chloride 93 L
Carbon Dioxide 27
BUN 44 H
Creatinine 1.5 H
Glucose 90
Calcium 9.1
Vital Signs:
Vital Signs
Temp Pulse Resp BP Pulse Ox
98.2 F 65 14 174/62 98
06/07/24 07:30 06/07/24 07:49 06/07/24 07:49 06/07/24 07:49 06/07/24 07:49
I&O
06/06/24 06/07/24 06/08/24
06:59 06:59 06:59
Intake Total 480 / 480 800 / 800
Balance 480 / 480 800 / 800
Review of Systems
-
Constitutional: Denies Fever
EENT: Denies Sore Throat
Respiratory: Denies Cough or Trouble Breathing
Cardiac: Denies Chest Pain
Physical Exam
-
General: No Apparent Distress
HEENT: Moist Mucous Membranes
Respiratory: Non Labored Respirations; Negative Accessory Resp Muscle Use
Cardiac: Regular Rhythm and S1/S2
GI: Soft
Neuro: AO x 3
Psych: Calm; Negative Confused
Data Reviewed
-
Labs: Labs Reviewed by me
[2024-06-07 15:58] VITALS: BP 157/45
[2024-06-07] MEDS: TOPROL XL PO (20:44)
[2024-06-07] MEDS: LIPITOR 40 MG PO (20:45)
[2024-06-07 23:37] VITALS: BP 128/40
--- NOTE | 2024-06-08 02:50 | DOWNTIME ---
There was a [employer]ist Downtime on 06/08/2024 from 0100 to 06/08/2023 at 0235 . Downtime documentation of patient's care, including medication administrations, has been reconciled in the electronic record per guidelines. Refer to the
patient's paper chart under the miscellaneous tab to see printed paper medication records and downtime forms.
[2024-06-08 05:05] VITALS: BMI 20.8
[2024-06-08 07:25] VITALS: BP 171/47
[2024-06-08 08:00] LABS: Hematocrit 27.1 % (37.0-47.0); Mean Corp Hgb Conc. 33.2 g/dL (33.0-37.0); Mean Corpuscular Hgb 30.7 pg (27.0-31.0); Mean Corpuscular Volume 92.5 fL (81.0-99.0); Mean Platelet Volume 9.1 fL (7.4-10.4); Platelet Count 447 10^3/uL (130-400); Red Blood Cell Count 2.93 10^6/uL (4.20-5.40); Red Cell Dist. Width 14.2 % (11.5-14.5)
[2024-06-08] MEDS: LOW STRENGTH ASPIRIN 81 MG PO (08:19)
[2024-06-08] MEDS: PROTONIX 40 MG PO (08:19)
[2024-06-08] MEDS: MAGNESIUM OXIDE 500 MG PO (08:19)
[2024-06-08] MEDS: LASIX 20 MG PO (08:19)
[2024-06-08] MEDS: TOPROL XL 25 MG PO (08:19)
[2024-06-08] MEDS: CATAPRES 0.1 MG PO (08:20)
[2024-06-08] MEDS: DITROPAN 5 MG PO (08:20)
[2024-06-08] MEDS: APRESOLINE 25 MG PO ×2 (08:20→16:36)
[2024-06-08] MEDS: NSS (PRESERVATIVE FREE) IV (08:20)
[2024-06-08 08:56] LABS: Blood Urea Nitrogen 46 mg/dl (7-17); Calcium 9.3 mg/dl (8.4-10.2); Carbon Dioxide 27 mmol/L (22-30); Chloride 96 mmol/L (98-107); Estimated Creatinine Clearance 19 ml/min; Glucose 86 mg/dl (70-99); Potassium 4.9 mmol/L (3.5-5.1); Sodium 132 mmol/L (135-145); eGFR 31.61
[2024-06-08] MEDS: PROTONIX IV IV ×8 (09:30→09:32)
--- NOTE | 2024-06-08 11:36 | W.PN.NEPH.PH ---
Today's Communication / Plan
-
Lasix
Assessment/Plan
-
83-year-old female with past medical history of essential hypertension, overactive bladder, hyperlipidemia who presented to ER May 31, 2024 with abdominal pain and nausea vomiting and dark stools found to have a drop in hemoglobin and
hyponatremia 119.
The previously seen with a hemoglobin of 125 on rehab for acute stroke. At that time she was placed on Plavix and aspirin.
impression.
Hyponatremia 119. Discharged April from [facility] with a sodium of 127 thought to be from chlorthalidone.
hypertensive emergency status post CVA April 2024 discharged on Plavix and aspirin.
overactive bladder
possible CKD 3
plan.
follow BMP
Creatinine remained stable
lasix 20mg daily restarted today.
Sodium stable 132 today
-
-
Date of Service: June 08, 2024
CC / HPI / ROS
-
Chief Complaint:
Hyponatremia
History of Present Illness:
Na down to 128�132
cr no change at 1.5/1.6
BP stable
Review of Systems:
Nonoliguric
no n/v
no sob
Labs
-
Labs:
WBC 8.0 10^3/uL (4.8-10.8) 06/08/24 07:20
RBC 2.93 10^6/uL (4.20-5.40) L 06/08/24 07:20
Hgb 9.0 g/dL (12.0-16.0) L 06/08/24 07:20
Hct 27.1 % (37.0-47.0) L 06/08/24 07:20
Plt Count 447 10^3/uL (130-400) H 06/08/24 07:20
Sodium 132 mmol/L (135-145) L 06/08/24 07:20
Potassium 4.9 mmol/L (3.5-5.1) 06/08/24 07:20
Chloride 96 mmol/L (98-107) L 06/08/24 07:20
Carbon Dioxide 27 mmol/L (22-30) 06/08/24 07:20
BUN 46 mg/dl (7-17) H 06/08/24 07:20
Creatinine 1.6 mg/dL (0.6-1.0) H 06/08/24 07:20
eGFR 31.61 06/08/24 07:20
Glucose 86 mg/dl (70-99) 06/08/24 07:20
Calcium 9.3 mg/dl (8.4-10.2) 06/08/24 07:20
Caw-M-Pogrypzbkux Pept 67222 pg/ml 05/31/24 10:36
Albumin 3.8 g/dl (3.5-5.0) 05/31/24 10:36
Physical Exam
-
Vital Signs:
Vital Signs
Temp Pulse Resp BP Pulse Ox
98.0 F 64 18 171/47 97
06/08/24 07:25 06/08/24 07:25 06/08/24 07:25 06/08/24 07:25 06/08/24 07:25
Cardiovascular:: Regular rate and rhythm
Respiratory:: Bilateral: CTA
Lung Excursion:: Normal
Abdomen:: Nontender and Soft
Bowel Sounds:: Normal
Extremity Edema:: None: Bilateral:
[2024-06-08] MEDS: PROCARDIA XL (EXTENDED RELEASE) 90 MG PO (12:37)
[2024-06-08 13:49] VITALS: BP 154/47; PULSE 58; O2SAT 97
--- NOTE | 2024-06-08 14:50 | W.PN.HOSP.TC ---
Today's Communication/Plan
-
dc
Assessment / Plan
Assessment / Plan
Assessment/Plan
83-year-old female past medical history of hyponatremia, CVA, CAD, hypertension, hyperlipidemia, anemia, overactive bladder, chronic kidney disease, presented with generalized fatigue and overall weakness, dark stools and shortness of breath with
sore throat and cough for a few days prior to presentation. Vomiting once on the day before presentation. Persistently hyponatremic at [place] [facility] despite discontinuation of chlorthalidone. Patient received IV fluids and Samsca before discharge on
05/20. Patient was hypoxemic at the time of admission, requiring 3 L oxygen. Appeared euvolemic. Initial labs showed sodium 119 from 127. Urine sodium of 38, osmolality of 293 on 05/17. Leukocytosis of 13. Hemoglobin of 8.9 from 12.7 only a few
weeks ago prior to presentation. MCV of 88. Rectal exam reveals brown heme positive stool. Concern for worsening hyponatremia despite discontinuation of chlorthalidone, addition of IV fluids and dose of Samsca administration before 05/20. Prior
urine studies previously suggest poor solute intake rather than SIADH.
#Hyponatremia
-Continue PO fluid restriction 32 ounces daily
- Sodium 132 after samsca yesterday
-Low-dose Lasix started by nephrology.
- Follow Na in a week
#Acute HFpEF was present on admission and is now resolved
#Elevated BNP
#Moderate to severe pulmonary edema pattern with small to moderate bilateral pleural effusions
-Status post Lasix -- further diuretics on dc per renal
-PO fluid restriction 32 ounces daily
-Cardiology signed off
#Symptomatic anemia from GI bleed
#Presentation with dysphagia, dark stool, non bloody emesis and drop in Hgb from baseline
#Small hiatal hernia.
#Erythematous mucosa in the stomach - biopsied
-EGD performed on 06/04/24, biopsies were taken with a cold forceps for evaluation of eosinophilic esophagitis.
-Heme positive brown stool
-Okay to continue Aspirin 81 mg daily as per GI
-Continue Protonix 40 mg P.O. x 8 weeks but then stop.
-Follow-up on pathology results.
-GI will hold off on colonoscopy but if patient has ZULEMA or persistent bleeding recommend pursuing recommend outpatient.
-Patient previously followed at [facility] for colonoscopy last one a few years ago per her report unclear
-stable H&H and no external bleeding noted.
#Anemia -- suspected to be anemia of chronic disease. H&H stable
#Acute hypoxic respiratory failure - RESOLVED - from pulmonary edema
-Status post Lasix
#Hypertension
#Orthostatic Hypotension
-Hydralazine (reduced to 25 mg TID from 100 mg TID due to orthostatic hypotension), metoprolol, nifedipine, continued
-Hold valsartan due to MORRIS
#History of CVA
-Continue Aspirin
#Hyperlipidemia
-Continue Lipitor 40mg
#Overactive Bladder
-Continue oxybutynin 10 mg bid
DVT Prophylaxis: SCDs. Have been holding chemical DVT prophylaxis due to recent symptomatic anemia with concern for GI bleed.
Code Status: Full code
Medically stable for DC today
DW son and updated the dx,tx and follow up plan
Total time of dc 32 min
Anticipated Discharge: Today
Subjective/Interval History
-
Date of Service: June 08, 2024
Patient denies shortness of breath or chest pain.
No cough or sore throat.
Denies any dizziness.
Objective Data
-
Labs:
Laboratory Results
06/08/24
07:20
WBC 8.0
Hgb 9.0 L
Hct 27.1 L
Plt Count 447 H
Sodium 132 L
Potassium 4.9
Chloride 96 L
Carbon Dioxide 27
BUN 46 H
Creatinine 1.6 H
Glucose 86
Calcium 9.3
Vital Signs:
Vital Signs
Temp Pulse Resp BP Pulse Ox
98.0 F 64 18 171/47 99
06/08/24 07:25 06/08/24 07:25 06/08/24 07:25 06/08/24 07:25 06/08/24 08:20
I&O
06/07/24 06/08/24 06/09/24
06:59 06:59 06:59
Intake Total 800 / 800 840 / 840
Balance 800 / 800 840 / 840
Review of Systems
-
Constitutional: Denies Fever
Abdomen/GI: Denies Abdominal Pain, Nausea or Vomiting
Neuro: Denies Dizzy
Physical Exam
-
General: Comfortable
Respiratory: Clear to Auscultation and Non Labored Respirations; Negative Accessory Resp Muscle Use
Cardiac: Regular Rhythm and S1/S2; Negative Tachycardic
GI: Soft and Nontender
Neuro: AO x 3
Psych: Calm; Negative Confused
Data Reviewed
-
Labs: Labs Reviewed by me
--- NOTE | 2024-06-08 14:51 | CM ---
Patient to return to home with son, Johan and [facility].
Plan; Home with [facility]
[2024-06-08 15:36] VITALS: BP 131/40
== END 2024-06-08 17:46 | disposition home health service (06) | DRG 640 ==
LOC: 4 WEST ACU 14:37
PROVIDERS: Emergency Medicine; Hospitalist; Internal Medicine Gastroenterology; Physician Assistant; Registered Nurse; Specialist; ADMITTING PHYSICIAN Hospitalist; ATTENDING PHYSICIAN Internal Medicine; CONSULT PHYSICIAN Internal Medicine Gastroenterology; CONSULT PHYSICIAN Internal Medicine Nephrology; EMERGENCY PHYSICIAN Emergency Medicine; FAMILY PHYSICIAN Internal Medicine; OTHER PHYSICIAN Internal Medicine Cardiovascular Disease; OTHER PHYSICIAN Physical Medicine & Rehabilitation
PROC: 0DB68ZX Excision of Stomach, Via Natural or Artificial Opening Endoscopic, Diagnostic (ICD-10-PCS; 2024-06-04)
PROC: 0DB38ZX Excision of Lower Esophagus, Via Natural or Artificial Opening Endoscopic, Diagnostic (ICD-10-PCS; 2024-06-04)
PROC: 0DB18ZX Excision of Upper Esophagus, Via Natural or Artificial Opening Endoscopic, Diagnostic (ICD-10-PCS; 2024-06-04)
DX: E87.1 Hypo-osmolality and hyponatremia (principal); I50.31 Acute diastolic (congestive) heart failure; J96.01 Acute respiratory failure with hypoxia; I13.0 Hypertensive heart and chronic kidney disease with heart failure and stage 1 through stage 4 chronic kidney disease, or unspecified chronic kidney disease; K92.2 Gastrointestinal hemorrhage, unspecified; N17.9 Acute kidney failure, unspecified; R47.01 Aphasia; N18.30 Chronic kidney disease, stage 3 unspecified; K44.9 Diaphragmatic hernia without obstruction or gangrene; D50.9 Iron deficiency anemia, unspecified; R13.10 Dysphagia, unspecified; Z79.82 Long term (current) use of aspirin; Z86.73 Personal history of transient ischemic attack (TIA), and cerebral infarction without residual deficits; I25.10 Atherosclerotic heart disease of native coronary artery without angina pectoris; E78.00 Pure hypercholesterolemia, unspecified; N32.81 Overactive bladder; K21.9 Gastro-esophageal reflux disease without esophagitis; Z79.899 Other long term (current) drug therapy; D72.829 Elevated white blood cell count, unspecified; Z11.52 Encounter for screening for COVID-19; M81.0 Age-related osteoporosis without current pathological fracture; Z82.49 Family history of ischemic heart disease and other diseases of the circulatory system
CPT/HCPCS: 88305; 71046; 73523; 74230; 80048; 80051; 80053; 81003; 82607; 82728; 82746; 83540; 83550; 83690; 83735; 83880; 83930; 83935; 84300; 85014; 85018; 85025; 85027; 86850; 86900; 86901; 87502; 87811; 88342; 92610; 92611; 96361; 96374; 96375; 97162; 97166; 97530; 99285

== ENCOUNTER → 2024-11-03 12:01 | Outpatient (REF) | payer OTHER, SELFPAY | LOC: WDC 12:01 | PROVIDERS: ATTENDING PHYSICIAN Internal Medicine | DX: Z12.31 Encounter for screening mammogram for malignant neoplasm of breast (principal) | CPT/HCPCS: 77063; 77067 ==